=== PATIENT | male | born 1990 | race Caucasian/White ===

== ENCOUNTER 2020-08-29 10:26 | Emergency (ER) | payer OTHER ==
[~2020-08-29] VITALS: Ht 182.9 cm; Wt 108.9 kg
[~2020-08-29 10:26] MED LIST: IBUP800 PO
== END 2020-08-29 12:40 | disposition home or self-care (01) ==
LOC: ER 10:26
DX: R05 Cough (principal); R09.81 Nasal congestion; R53.83 Other fatigue; R19.7 Diarrhea, unspecified; F17.210 Nicotine dependence, cigarettes, uncomplicated; Z20.828 Contact with and (suspected) exposure to other viral communicable diseases
CPT/HCPCS: 99283; U0003

== ENCOUNTER 2020-11-15 21:33 | Emergency (ER) | payer SELFPAY ==
[~2020-11-15] VITALS: Ht 182.9 cm; Wt 72.6 kg
[2020-11-15 22:09] LABS: BASOPHILS PERCENT AUTO 2 % (0-2); EOSINOPHILS ABSOLUTE AUTO 0.28 K/mm3 (0.00-0.68); EOSINOPHILS PERCENT AUTO 4 % (0-6); Hematocrit 43.7 % (37.0-53.0); Hemoglobin 14.7 g/dL (13.5-17.5); IMMATURE GRAN ABSOLUTE AUTO 0.03 K/mm3 (0.00-0.10); IMMATURE GRAN PERCENT AUTO 1 % (0-1); LYMPHOCYTES ABSOLUTE AUTO 1.52 K/mm3 (0.84-5.20); LYMPHOCYTES PERCENT AUTO 23 % (21-46); MONOCYTES ABSOLUTE AUTO 0.57 K/mm3 (0.16-1.47); MONOCYTES PERCENT AUTO 9 % (4-13); Mean Corpuscular HGB 31.7 pg (26.0-34.0); Mean Corpuscular HGB Conc 33.6 g/dL (31.5-36.5); Mean Corpuscular Volume 94 fL (80-100); Mean Platelet Volume 10.4 fL (9.1-12.4); NEUTROPHILS ABSOLUTE AUTO 4.05 K/mm3 (1.96-9.15); NEUTROPHILS PERCENT AUTO 62 % (41-73); Platelet Count 195 K/mm3 (150-400); RDW Coefficient Variation 12.6 % (11.7-14.2); RDW Standard Deviation 43.8 fL (35.1-46.3); Red Blood Cell Count 4.64 M/mm3 (4.30-5.90); White Blood Cell Count 6.55 K/mm3 (4.00-11.30)
[2020-11-15 22:30] LABS: Alanine Aminotransfer (ALT/SGP 78 U/L (12-78); Albumin, Blood 3.5 g/dL (3.4-5.0); Albumin/Globulin Ratio 0.8 (0.8-1.8); Alk Phos 118 U/L (50-136); Anion Gap 4 mmol/L (6-16); Aspartate Aminotrans (AST/SGOT 73 U/L (12-37); Bilirubin, Total 0.5 mg/dL (0.1-1.0); Blood Urea Nitrogen 12 mg/dL (8-24); Bun/Creatinine Ratio 14.5 (12.0-20.0); CO2, Blood 30 mmol/L (21-32); Calcium, Blood 8.9 mg/dL (8.5-10.1); Chloride, Blood 105 mmol/L (98-108); Creatinine, Blood 0.83 mg/dL (0.60-1.20); Globulin, Blood 4.6 g/dL (2.2-4.0); Glomerular Filtration Rate >60 (60-); Glucose, Blood 108 mg/dL (70-99); Potassium, Blood 3.3 mmol/L (3.5-5.5); Sodium, Blood 139 mmol/L (136-145); Total Protein, Blood 8.1 g/dL (6.4-8.2); Troponin I <0.015 ng/mL (0.000-0.040)
== END 2020-11-16 00:09 | disposition home or self-care (01) ==
LOC: ER 21:33
PROVIDERS: Emergency Medicine
DX: R07.9 Chest pain, unspecified (principal); F17.210 Nicotine dependence, cigarettes, uncomplicated
CPT/HCPCS: 71046; 80053; 83690; 84484; 85025; 93005; 93010; 96374; 99285-25; G0480; J1885

== ENCOUNTER 2021-04-02 14:54 | Emergency (ER) | payer SELFPAY ==
[~2021-04-02] VITALS: Ht 175.3 cm; Wt 90.7 kg
[2021-04-02 15:40] LABS: BASOPHILS ABSOLUTE AUTO 0.09 K/mm3 (0.00-0.23); BASOPHILS PERCENT AUTO 2 % (0-2); EOSINOPHILS ABSOLUTE AUTO 0.09 K/mm3 (0.00-0.68); EOSINOPHILS PERCENT AUTO 2 % (0-6); Hematocrit 41.6 % (37.0-53.0); Hemoglobin 14.2 g/dL (13.5-17.5); IMMATURE GRAN ABSOLUTE AUTO 0.02 K/mm3 (0.00-0.10); IMMATURE GRAN PERCENT AUTO 0 % (0-1); LYMPHOCYTES ABSOLUTE AUTO 1.04 K/mm3 (0.84-5.20); LYMPHOCYTES PERCENT AUTO 17 % (21-46); MONOCYTES ABSOLUTE AUTO 0.43 K/mm3 (0.16-1.47); MONOCYTES PERCENT AUTO 7 % (4-13); Mean Corpuscular HGB 31.9 pg (26.0-34.0); Mean Corpuscular HGB Conc 34.1 g/dL (31.5-36.5); Mean Corpuscular Volume 94 fL (80-100); Mean Platelet Volume 10.7 fL (9.1-12.4); NEUTROPHILS ABSOLUTE AUTO 4.37 K/mm3 (1.96-9.15); NEUTROPHILS PERCENT AUTO 72 % (41-73); Platelet Count 120 K/mm3 (150-400); RDW Coefficient Variation 12.9 % (11.7-14.2); RDW Standard Deviation 44.3 fL (35.1-46.3); Red Blood Cell Count 4.45 M/mm3 (4.30-5.90); White Blood Cell Count 6.04 K/mm3 (4.00-11.30)
[2021-04-02 15:59] LABS: Alanine Aminotransfer (ALT/SGP 207 U/L (12-78); Albumin, Blood 3.8 g/dL (3.4-5.0); Alk Phos 91 U/L (50-136); Anion Gap 10 mmol/L (6-16); Aspartate Aminotrans (AST/SGOT 237 U/L (12-37); Bilirubin, Total 0.7 mg/dL (0.1-1.0); Blood Urea Nitrogen 13 mg/dL (8-24); Bun/Creatinine Ratio 16.1 (12.0-20.0); CO2, Blood 24 mmol/L (21-32); Calcium, Blood 8.2 mg/dL (8.5-10.1); Chloride, Blood 104 mmol/L (98-108); Creatinine, Blood 0.81 mg/dL (0.60-1.20); Globulin, Blood 3.9 g/dL (2.2-4.0); Glomerular Filtration Rate >60 (60-); Glucose, Blood 176 mg/dL (70-99); Potassium, Blood 3.3 mmol/L (3.5-5.5); Sodium, Blood 138 mmol/L (136-145); Total Protein, Blood 7.7 g/dL (6.4-8.2); Troponin I <0.015 ng/mL (0.000-0.040)
[2021-04-02] MEDS ORDERED: Toprol Xl25 MG PO (18:03)
[2021-04-02] MEDS ORDERED: ALBU90OI INH (18:03)
== END 2021-04-02 19:11 | disposition home or self-care (01) ==
LOC: ER 14:54
PROVIDERS: Physician Assistant
DX: J45.909 Unspecified asthma, uncomplicated (principal); R07.9 Chest pain, unspecified; F17.210 Nicotine dependence, cigarettes, uncomplicated
CPT/HCPCS: 36415; 71046; 80053; 84484; 85025; 93005; 93010; 99283-25; A9270; G0480

== ENCOUNTER 2021-11-13 10:34 | Inpatient (IN) | payer OTHER ==
[~2021-11-13] VITALS: Ht 185.4 cm; Wt 85.9 kg
[~2021-11-13 10:34] MED LIST changes: +ALBU90OI INH; +Toprol Xl25 MG PO
[2021-11-13 12:00] LABS: BASOPHILS ABSOLUTE AUTO 0.05 K/mm3 (0.00-0.23); BASOPHILS PERCENT AUTO 1 % (0-2); EOSINOPHILS ABSOLUTE AUTO 0.01 K/mm3 (0.00-0.68); EOSINOPHILS PERCENT AUTO 0 % (0-6); Hematocrit 40.6 % (37.0-53.0); Hemoglobin 14.8 g/dL (13.5-17.5); IMMATURE GRAN ABSOLUTE AUTO 0.15 K/mm3 (0.00-0.10); IMMATURE GRAN PERCENT AUTO 2 % (0-1); LYMPHOCYTES ABSOLUTE AUTO 0.39 K/mm3 (0.84-5.20); LYMPHOCYTES PERCENT AUTO 5 % (21-46); MONOCYTES PERCENT AUTO 8 % (4-13); Mean Corpuscular HGB 32.3 pg (26.0-34.0); Mean Corpuscular HGB Conc 36.5 g/dL (31.5-36.5); Mean Corpuscular Volume 89 fL (80-100); Mean Platelet Volume 10.7 fL (9.1-12.4); NEUTROPHILS ABSOLUTE AUTO 7.21 K/mm3 (1.96-9.15); NEUTROPHILS PERCENT AUTO 85 % (41-73); NRBC ABSOLUTE 0.02 K/mm3 (0.00-0.02); NRBC Auto 0.2 /100 WBC (0.0-0.2); Platelet Count 103 K/mm3 (150-400); RDW Coefficient Variation 11.9 % (11.7-14.2); RDW Standard Deviation 38.9 fL (35.1-46.3); Red Blood Cell Count 4.58 M/mm3 (4.30-5.90); White Blood Cell Count 8.51 K/mm3 (4.00-11.30)
[2021-11-13 12:16] LABS: Alanine Aminotransfer (ALT/SGP 90 U/L (12-78); Albumin, Blood 2.9 g/dL (3.4-5.0); Albumin/Globulin Ratio 0.6 (0.8-1.8); Alk Phos 216 U/L (50-136); Anion Gap 23 mmol/L (6-16); Aspartate Aminotrans (AST/SGOT 243 U/L (12-37); Blood Urea Nitrogen 12 mg/dL (8-24); Bun/Creatinine Ratio 27.3 (12.0-20.0); CO2, Blood 21 mmol/L (21-32); Calcium, Blood 8.5 mg/dL (8.5-10.1); Chloride, Blood 82 mmol/L (98-108); Creatinine, Blood 0.44 mg/dL (0.60-1.20); Ethanol (Alcohol), Blood, Med 258 mg/dL; Globulin, Blood 4.7 g/dL (2.2-4.0); Glomerular Filtration Rate >60 (60-); Glucose, Blood 112 mg/dL (70-99); Potassium, Blood 2.7 mmol/L (3.5-5.5); Sodium, Blood 126 mmol/L (136-145); Total Protein, Blood 7.6 g/dL (6.4-8.2); Troponin I <0.015 ng/mL (0.000-0.040)
[2021-11-13 13:12] LABS: Source, Urine Clean Catch
[2021-11-13 13:16] LABS: Appearance, Urine Cloudy (Clear); Blood, Urine 3+ (Neg); Color, Urine Amber (P-Yellow); Glucose Qualitative, Urine Neg (Neg); Ketones, Urine 4+ (Neg); Leukocyte Esterase, Urine 1+ (Neg); Nitrite, Urine Neg (Neg); Protein, Urine 3+ (Neg); Urobilinogen, Urine 3+ (Normal)
[2021-11-13 13:26] LABS: Bilirubin, Urine 2+ (Neg)
[2021-11-13 13:33] LABS: Bacteria Few /hpf; Red Blood Cells, Urine 0-2 /hpf (0-2); Squamous Epithelial Cells Mod /hpf (Few)
[2021-11-13 13:34] LABS: Other Crystals Few /hpf
--- NOTE | 2021-11-13 17:46 | NUR ---
SHIFT SUMMARY; ER ADMIT, TRANSFERS TO BED FROM [facility]. BANNANA BAG, NS AND K+ INFUSING ON ADMIT. A/A/OX4, SLIGHT TREMOR NOTED. MEDICATED PER CIWA ORDERS. REPORTS URQ PAIN AND NAUSEA. ASKING FOR WATER, REVIEWED REASON FOR NPO R/T PANCREATITIS. MEDICATED FOR PAIN PER EMAR. FALLS ASLEEP SHORTLY AFTER, WILL CONTINUE TO MONITOR AND TREAT UNTIL CHANGE OF SHIFT.
[2021-11-13 20:08] LABS: Troponin I <0.015 ng/mL (0.000-0.040)
--- NOTE | 2021-11-13 21:16 | NUR ---
ASSUMED CARE OF PATIENT AT APPROXIMATELY 1915 FROM JANET Swain RN. PATIENT RESPONDS TO VERBAL STIMULUS; DROWSY AT TIMES. PATIENT ABLE TO STATE DATE, OFF ON YEAR (2000); NAME, , AND LOCATION. CIWA 9. PATIENT REPORTS LOWER RQ PAIN; TENDER; GUARDED; MEDICATED PER EMAR; REPORTS DIALUDID DOENST LAST LONG BUT PATIENT APPEARS COMFORTABLE AND SLEEPS FOR ABOUT TWO HOURS AFTER. PATIENT NAUSEATED BUT NO ORDERS INTIALLY IN EMAR; CALLED DR. SONG; ORDERS FOR COMPAZINE 10MG IV Q6 NEEDED FOR NAUSEA. PATIENT DENIES NUMBNESS AND TINGLING AND DIZZINESS. IVF INFUSING PER ORDER.
--- NOTE | 2021-11-13 22:24 | NUR ---
HEART RATE AVERAGING 140'S; UP FROM 130'S EARLIER IN SHIFT; PATIENT REPORTS TAKING 12.5MG METOPROLOL FOR HEART RATE BUT RAN OUT A FEW MONTHS AGO AND COULD NOT GET ANOTHER PRESCRIPTION; WILL UPDATE HOSPITALIST.
[2021-11-13] MEDS ORDERED: METO25ER PO (22:26)
--- NOTE | 2021-11-13 22:34 | NUR ---
DR. SONG NOTIFIED AND ORDERS FOR IV LOPRESSOR FOR HEART RATE OVER 120 Q6 PRN; START HOME DOSE OF METOPROLOL IN AM; CLEAR LIQUID DIET IF PAIN CONTROLLED IT IS NOW AND NOT NAUSEATED.
[2021-11-14 05:31] LABS: Alanine Aminotransfer (ALT/SGP 71 U/L (12-78); Albumin, Blood 2.7 g/dL (3.4-5.0); Albumin/Globulin Ratio 0.8 (0.8-1.8); Alk Phos 184 U/L (50-136); Anion Gap 18 mmol/L (6-16); Aspartate Aminotrans (AST/SGOT 178 U/L (12-37); Bilirubin, Total 5.7 mg/dL (0.1-1.0); Blood Urea Nitrogen 11 mg/dL (8-24); Bun/Creatinine Ratio 22.6 (12.0-20.0); CO2, Blood 23 mmol/L (21-32); Calcium, Blood 8.1 mg/dL (8.5-10.1); Chloride, Blood 86 mmol/L (98-108); Creatinine, Blood 0.49 mg/dL (0.60-1.20); Globulin, Blood 3.6 g/dL (2.2-4.0); Glomerular Filtration Rate >60 (60-); Glucose, Blood 103 mg/dL (70-99); Magnesium, Blood 1.9 mg/dL (1.6-2.4); Potassium, Blood 2.8 mmol/L (3.5-5.5); Sodium, Blood 127 mmol/L (136-145); Total Protein, Blood 6.3 g/dL (6.4-8.2)
--- NOTE | 2021-11-14 06:54 | NUR ---
CALLED DR. WELLS ABOUT POTASSIUM OF 2.8 AND SODIUM OF 127; ORDERS FOR IV POTASSIUM 40 MEQ AND BANANA BAG AT 75. NO OTHER ACUTE CHANGES TO REPORT.
--- NOTE | 2021-11-14 07:59 | NUR ---
CIWA score this morning is 5. Pt is drowsy, when awake he c/o pain 8/10 in the right upper quadrand of his abdomen. Given half dose of pain medication for relief. Noted sinus tachycardia by telemetry monitoring, and blood pressure 138/100. Metoprolol scheduled for 0900 was given early, as it is the first dose.
--- NOTE | 2021-11-14 11:25 | NUR ---
pt appears to be sleeping comfortably.
--- NOTE | 2021-11-14 12:09 | NUR ---
medicated with Librium 25 mg for CIWA 4-5. C/O ongoing pain in his abdomen, drowsy, but awakens easily. NPO except for sips of water to swallow medications.
[2021-11-14 14:18] LABS: BASOPHILS ABSOLUTE AUTO 0.03 K/mm3 (0.00-0.23); BASOPHILS PERCENT AUTO 1 % (0-2); EOSINOPHILS ABSOLUTE AUTO 0.01 K/mm3 (0.00-0.68); EOSINOPHILS PERCENT AUTO 0 % (0-6); Hematocrit 36.8 % (37.0-53.0); Hemoglobin 13.1 g/dL (13.5-17.5); IMMATURE GRAN ABSOLUTE AUTO 0.06 K/mm3 (0.00-0.10); IMMATURE GRAN PERCENT AUTO 1 % (0-1); LYMPHOCYTES ABSOLUTE AUTO 0.51 K/mm3 (0.84-5.20); LYMPHOCYTES PERCENT AUTO 8 % (21-46); MONOCYTES ABSOLUTE AUTO 0.41 K/mm3 (0.16-1.47); MONOCYTES PERCENT AUTO 7 % (4-13); Mean Corpuscular HGB 32.4 pg (26.0-34.0); Mean Corpuscular HGB Conc 35.6 g/dL (31.5-36.5); Mean Corpuscular Volume 91 fL (80-100); NEUTROPHILS ABSOLUTE AUTO 5.12 K/mm3 (1.96-9.15); NEUTROPHILS PERCENT AUTO 83 % (41-73); Platelet Count 74 K/mm3 (150-400); RDW Coefficient Variation 12.2 % (11.7-14.2); RDW Standard Deviation 41.1 fL (35.1-46.3); Red Blood Cell Count 4.04 M/mm3 (4.30-5.90); White Blood Cell Count 6.14 K/mm3 (4.00-11.30)
[2021-11-14 14:30] LABS: Albumin, Blood 2.4 g/dL (3.4-5.0); Anion Gap 12 mmol/L (6-16); Blood Urea Nitrogen 9 mg/dL (8-24); Bun/Creatinine Ratio 21.3 (12.0-20.0); CO2, Blood 28 mmol/L (21-32); Calcium, Blood 8.6 mg/dL (8.5-10.1); Chloride, Blood 86 mmol/L (98-108); Creatinine, Blood 0.42 mg/dL (0.60-1.20); Glomerular Filtration Rate >60 (60-); Glucose, Blood 146 mg/dL (70-99); Phosphorus, Blood 1.3 mg/dL (2.5-4.9); Potassium, Blood 3.1 mmol/L (3.5-5.5); Sodium, Blood 126 mmol/L (136-145)
--- NOTE | 2021-11-14 14:34 | NUR ---
Call to Dr. Gauthier to report the lab values which were just seen on recent lab draw.
--- NOTE | 2021-11-14 15:07 | NUR ---
Heart rate noted to be 139, and holding, sinus tachycardia. Pt is awake, nauseated, dry heaved. States headache worsening also. No diaphoresis, no anxiety, no hallucinations (save some strange dreams, he reports), no confusion, no tremors. CIWA IS 9. Given metoprolol IV prn for tachycardia, and librium 50 mg for withdrawl symptoms. He is now lying in bed, eyes closed, appears to be resting comfortably.
--- NOTE | 2021-11-14 16:11 | NUR ---
Pt states that after taking the librium his headache is completely gone, as well as his nausea. States that his abdominal pain has returned. Given pain medication for relief. He said that after taking a swig of water (with meds) his abdominal pain was better for about an hour. He is asking for water. Given 30 cc water. He then is asking for yogurt which of course was denied.
--- NOTE | 2021-11-14 18:11 | NUR ---
Pt's significant other Minerva was here visiting the patient. We discussed the pt's ongoing illness and the plan of care.
[2021-11-15 04:06] LABS: Hematocrit 37.7 % (37.0-53.0); Hemoglobin 13.1 g/dL (13.5-17.5); Mean Corpuscular HGB 31.7 pg (26.0-34.0); Mean Corpuscular HGB Conc 34.7 g/dL (31.5-36.5); Mean Corpuscular Volume 91 fL (80-100); Mean Platelet Volume 11.7 fL (9.1-12.4); Platelet Count 82 K/mm3 (150-400); RDW Coefficient Variation 12.2 % (11.7-14.2); Red Blood Cell Count 4.13 M/mm3 (4.30-5.90); White Blood Cell Count 5.13 K/mm3 (4.00-11.30)
[2021-11-15 04:44] LABS: Alanine Aminotransfer (ALT/SGP 56 U/L (12-78); Albumin, Blood 2.4 g/dL (3.4-5.0); Albumin/Globulin Ratio 0.7 (0.8-1.8); Alk Phos 168 U/L (50-136); Anion Gap 12 mmol/L (6-16); Aspartate Aminotrans (AST/SGOT 138 U/L (12-37); Bilirubin, Direct 6.2 mg/dL (0.0-0.3); Bilirubin, Indirect 0.9 mg/dL (0.1-0.7); Bilirubin, Total 7.1 mg/dL (0.1-1.0); Blood Urea Nitrogen 7 mg/dL (8-24); Bun/Creatinine Ratio 13.6 (12.0-20.0); CO2, Blood 30 mmol/L (21-32); Calcium, Blood 8.4 mg/dL (8.5-10.1); Chloride, Blood 85 mmol/L (98-108); Creatinine, Blood 0.52 mg/dL (0.60-1.20); Globulin, Blood 3.5 g/dL (2.2-4.0); Glomerular Filtration Rate >60 (60-); Glucose, Blood 120 mg/dL (70-99); Magnesium, Blood 1.8 mg/dL (1.6-2.4); Phosphorus, Blood 1.3 mg/dL (2.5-4.9); Potassium, Blood 3.2 mmol/L (3.5-5.5); Sodium, Blood 127 mmol/L (136-145); Total Protein, Blood 5.9 g/dL (6.4-8.2)
[2021-11-15 04:45] LABS: BAND PERCENT MAN 24 % (0-8); BASOPHILS PERCENT MAN 0 % (0-2); EOSINOPHILS ABSOLUTE MAN 0.05 K/mm3 (0.00-0.68); EOSINOPHILS PERCENT MAN 1 % (0-6); LYMPHOCYTES ABSOLUTE MAN 0.41 K/mm3 (0.84-5.20); LYMPHOCYTES PERCENT MAN 8 % (21-46); MONOCYTES PERCENT MAN 4 % (4-13); NEUTROPHILS ABSOLUTE MAN 4.46 K/mm3 (1.96-9.15); SEG NEUTROPHILS PERCENT MAN 63 % (41-73); TOTAL CELLS COUNTED 100
[2021-11-15 15:57] LABS: BASOPHILS ABSOLUTE AUTO 0.04 K/mm3 (0.00-0.23); BASOPHILS PERCENT AUTO 1 % (0-2); EOSINOPHILS ABSOLUTE AUTO 0.02 K/mm3 (0.00-0.68); EOSINOPHILS PERCENT AUTO 0 % (0-6); Hematocrit 35.4 % (37.0-53.0); Hemoglobin 12.3 g/dL (13.5-17.5); IMMATURE GRAN ABSOLUTE AUTO 0.07 K/mm3 (0.00-0.10); IMMATURE GRAN PERCENT AUTO 1 % (0-1); LYMPHOCYTES ABSOLUTE AUTO 0.63 K/mm3 (0.84-5.20); LYMPHOCYTES PERCENT AUTO 10 % (21-46); MONOCYTES ABSOLUTE AUTO 0.61 K/mm3 (0.16-1.47); MONOCYTES PERCENT AUTO 10 % (4-13); Mean Corpuscular HGB 31.7 pg (26.0-34.0); Mean Corpuscular HGB Conc 34.7 g/dL (31.5-36.5); Mean Corpuscular Volume 91 fL (80-100); Mean Platelet Volume 11.3 fL (9.1-12.4); NEUTROPHILS ABSOLUTE AUTO 4.71 K/mm3 (1.96-9.15); NEUTROPHILS PERCENT AUTO 77 % (41-73); Platelet Count 86 K/mm3 (150-400); RDW Coefficient Variation 12.2 % (11.7-14.2); Red Blood Cell Count 3.88 M/mm3 (4.30-5.90); White Blood Cell Count 6.08 K/mm3 (4.00-11.30)
--- NOTE | 2021-11-15 18:07 | NUR ---
SHIFT SUMMARY PT HAS BEEN SLEEPING OFF AND ON. PT HAS C/O RUQ PAIN CONSISTENTLY THROUGHOUT THE DAY, TREATED WITH POSITIONING, DISTRACTION, AND EMAR. CIWA SCORES HAVE BEEN CONSISTENTLY <5. PT HAS BEEN A&O X4, PLEASANT AND COOPERATIVE WITH CARE. VSS, NO ACUTE CHANGES TO CURRENT CONDITION.
[2021-11-16 04:29] LABS: Hematocrit 33.6 % (37.0-53.0); Hemoglobin 11.9 g/dL (13.5-17.5); Mean Corpuscular HGB 32.2 pg (26.0-34.0); Mean Corpuscular HGB Conc 35.4 g/dL (31.5-36.5); Mean Corpuscular Volume 91 fL (80-100); Platelet Count 98 K/mm3 (150-400); RDW Coefficient Variation 12.1 % (11.7-14.2); RDW Standard Deviation 40.4 fL (35.1-46.3); White Blood Cell Count 5.61 K/mm3 (4.00-11.30)
[2021-11-16 04:48] LABS: Alanine Aminotransfer (ALT/SGP 45 U/L (12-78); Albumin/Globulin Ratio 0.5 (0.8-1.8); Alk Phos 150 U/L (50-136); Anion Gap 10 mmol/L (6-16); Aspartate Aminotrans (AST/SGOT 124 U/L (12-37); Blood Urea Nitrogen 6 mg/dL (8-24); Bun/Creatinine Ratio 12.2 (12.0-20.0); CO2, Blood 31 mmol/L (21-32); Calcium, Blood 8.4 mg/dL (8.5-10.1); Chloride, Blood 86 mmol/L (98-108); Creatinine, Blood 0.49 mg/dL (0.60-1.20); Globulin, Blood 4.2 g/dL (2.2-4.0); Glomerular Filtration Rate >60 (60-); Glucose, Blood 106 mg/dL (70-99); Phosphorus, Blood 1.3 mg/dL (2.5-4.9); Potassium, Blood 2.7 mmol/L (3.5-5.5); Sodium, Blood 127 mmol/L (136-145); Total Protein, Blood 6.2 g/dL (6.4-8.2)
[2021-11-16 05:15] LABS: BAND PERCENT MAN 13 % (0-8); BASOPHILS ABSOLUTE MAN 0.05 K/mm3 (0.00-0.23); BASOPHILS PERCENT MAN 1 % (0-2); EOSINOPHILS PERCENT MAN 0 % (0-6); LYMPHOCYTES ABSOLUTE MAN 0.67 K/mm3 (0.84-5.20); LYMPHOCYTES PERCENT MAN 12 % (21-46); MONOCYTES ABSOLUTE MAN 0.78 K/mm3 (0.16-1.47); MONOCYTES PERCENT MAN 14 % (4-13); NEUTROPHILS ABSOLUTE MAN 4.09 K/mm3 (1.96-9.15); SEG NEUTROPHILS PERCENT MAN 60 % (41-73); TOTAL CELLS COUNTED 100
--- NOTE | 2021-11-16 06:53 | NUR ---
SHIFT SUMMARY PT ALERT AND ORIENTED. CONFUSED AT TIMES. STATES HIS BEDROOM LOOKS THE SAME AT HOME AND ASKED WHAT MEDICINE WAS INFUSING FROM THAT BAG, WHILE POINTING AT A MASK HANGING ON IV POLE. PULLED OUT WRIST IV. ST 100-120'S. ON RA MAINTAINING SATS OVER 94%. LUNG SOUNDS CLEAR. VOIDING WITH BEDSIDE URINAL. PT REMAINS NPO D/T PANCREATITIS. 05/31 ABDOMINAL PAIN MEDICATED PER EMAR. PROVIDER NOTIFED OF 2.7 POTASSIUM FROM AM LABS. NEW ORDERS IN EMAR. IN BED SLEEPING WITH CALL ALARM AT SIDE
[2021-11-16 14:17] LABS: Albumin, Blood 2.3 g/dL (3.4-5.0); Anion Gap 11 mmol/L (6-16); Blood Urea Nitrogen 7 mg/dL (8-24); CO2, Blood 30 mmol/L (21-32); Calcium, Blood 8.2 mg/dL (8.5-10.1); Chloride, Blood 87 mmol/L (98-108); Glomerular Filtration Rate >60 (60-); Glucose, Blood 105 mg/dL (70-99); Phosphorus, Blood 2.1 mg/dL (2.5-4.9); Potassium, Blood 3.5 mmol/L (3.5-5.5); Sodium, Blood 128 mmol/L (136-145)
--- NOTE | 2021-11-16 17:58 | NUR ---
SHIFT SUMMARY PT WAS MODERATELY AGITATED AND ANXIOUS DURING THE FIRST HALF OF THE DAY. PT IS A&O X3 AND IS REORIENTABLE. PT PULLED IV DURING AN EPISODE OF GREATER ANXIETY AND AGITATION, A POWERGLIDE IV WAS PLACED WHICH WAS ALSO PULLED DURING AN EPISODE OF ANXIETY AND AGITATION. ANOTHER PERIPHERAL IV WAS PLACED AND PT WAS EDUCATED ON THE NEXT STEPS IF CARE IS TO BE CONTINUED. PT STATED AN UNDERSTANDING AND THAT THEY STILL WISH TO BE TREATED. ALL VSS.
[2021-11-17 03:59] LABS: BASOPHILS ABSOLUTE AUTO 0.05 K/mm3 (0.00-0.23); BASOPHILS PERCENT AUTO 1 % (0-2); EOSINOPHILS ABSOLUTE AUTO 0.09 K/mm3 (0.00-0.68); EOSINOPHILS PERCENT AUTO 2 % (0-6); Hematocrit 32.2 % (37.0-53.0); Hemoglobin 11.4 g/dL (13.5-17.5); IMMATURE GRAN ABSOLUTE AUTO 0.15 K/mm3 (0.00-0.10); IMMATURE GRAN PERCENT AUTO 3 % (0-1); LYMPHOCYTES ABSOLUTE AUTO 0.73 K/mm3 (0.84-5.20); LYMPHOCYTES PERCENT AUTO 13 % (21-46); MONOCYTES ABSOLUTE AUTO 1.07 K/mm3 (0.16-1.47); MONOCYTES PERCENT AUTO 20 % (4-13); Mean Corpuscular HGB 32.6 pg (26.0-34.0); Mean Corpuscular HGB Conc 35.4 g/dL (31.5-36.5); Mean Corpuscular Volume 92 fL (80-100); Mean Platelet Volume 10.1 fL (9.1-12.4); NEUTROPHILS ABSOLUTE AUTO 3.38 K/mm3 (1.96-9.15); NEUTROPHILS PERCENT AUTO 62 % (41-73); NRBC ABSOLUTE 0.02 K/mm3 (0.00-0.02); NRBC Auto 0.4 /100 WBC (0.0-0.2); Platelet Count 151 K/mm3 (150-400); RDW Coefficient Variation 12.6 % (11.7-14.2); RDW Standard Deviation 42.4 fL (35.1-46.3); White Blood Cell Count 5.47 K/mm3 (4.00-11.30)
[2021-11-17 04:20] LABS: Alanine Aminotransfer (ALT/SGP 48 U/L (12-78); Albumin/Globulin Ratio 0.5 (0.8-1.8); Alk Phos 174 U/L (50-136); Anion Gap 9 mmol/L (6-16); Aspartate Aminotrans (AST/SGOT 142 U/L (12-37); Blood Urea Nitrogen 7 mg/dL (8-24); CO2, Blood 30 mmol/L (21-32); Calcium, Blood 8.5 mg/dL (8.5-10.1); Chloride, Blood 91 mmol/L (98-108); Creatinine, Blood 0.54 mg/dL (0.60-1.20); Globulin, Blood 4.1 g/dL (2.2-4.0); Glomerular Filtration Rate >60 (60-); Glucose, Blood 100 mg/dL (70-99); Potassium, Blood 3.2 mmol/L (3.5-5.5); Sodium, Blood 130 mmol/L (136-145); Total Protein, Blood 6.1 g/dL (6.4-8.2)
--- NOTE | 2021-11-17 06:49 | NUR ---
SHIFT SUMMARY CIWA SCORES OF 9 AND 9 THIS EVENING. PT LETHARGIC THROUGHOUT MOST OF NIGHT. WHEN AWAKE PT UNABLE TO TELL THE DATE OR TIME. C/O 7-910 ABDOMINAL PAIN, MEDICATED PER EMAR. WITHDRAWAL AFFECTS MEDICATED PER EMAR. NS INFUSING IN RIGHT FOREARM AT 100ML/HR. PT ON CLEAR LIQUID DIET. PT SHAKY ON FEET AND IMPULSIVE AT TIMES. KEEPS ASKING IF HE CAN GO OUTSIDE AND SMOKE. PT AWAKE IN BED WITH CALL ALARM AT SIDE. WILL CONTINUE TO MONITOR UNTIL REPORT GIVEN TO DAYSHIFT RN
--- NOTE | 2021-11-17 18:50 | NUR ---
SHIFT SUMMARY: PT LETHARGIC, ORIENTED TO SELF, LOCATION, SITUATION. PT ATTEMPTS TO EXIT BED OFTEN, BED ALARM AND MONITORING IN PLACE, REQUIRES REDIRECTION OFTEN. PT MAINTAINS O2 SATS >92% ON RA. SR/ST ON MONITOR. LIQUID DIET CONTINUES WITH MINIMAL INTAKE. PT OFTEN ASKING TO GO SMOKE, EDUCATED ABOUT HOSPITAL POLICY, ORDER OBTAINED AND PT TREATED WITH NICOTINE PATCH. PT ALSO MEDICATED PER CIWA ORDERS AND W/PRN PAIN MEDS FOR ABD PAIN. PT ASSISTED TO STANDING AT BEDSIDE FOR URINAL USE, CONTINUES TO BE SHAKY AND WEAK, BUT IS COOPERATIVE WITH CARE. WILL CONTINUE TO MONITOR AND TREAT ACCORDINGLY UNTIL CHANGE OF SHIFT.
[2021-11-18 03:53] LABS: Hematocrit 32.4 % (37.0-53.0); Hemoglobin 11.4 g/dL (13.5-17.5); Mean Corpuscular HGB 32.7 pg (26.0-34.0); Mean Corpuscular HGB Conc 35.2 g/dL (31.5-36.5); Mean Corpuscular Volume 93 fL (80-100); NRBC ABSOLUTE 0.02 K/mm3 (0.00-0.02); NRBC Auto 0.5 /100 WBC (0.0-0.2); Platelet Count 169 K/mm3 (150-400); RDW Standard Deviation 43.7 fL (35.1-46.3); Red Blood Cell Count 3.49 M/mm3 (4.30-5.90); White Blood Cell Count 4.41 K/mm3 (4.00-11.30)
[2021-11-18 04:08] LABS: Anion Gap 8 mmol/L (6-16); Blood Urea Nitrogen 5 mg/dL (8-24); Bun/Creatinine Ratio 10.8 (12.0-20.0); CO2, Blood 28 mmol/L (21-32); Calcium, Blood 8.8 mg/dL (8.5-10.1); Chloride, Blood 98 mmol/L (98-108); Creatinine, Blood 0.46 mg/dL (0.60-1.20); Glomerular Filtration Rate >60 (60-); Glucose, Blood 102 mg/dL (70-99); Phosphorus, Blood 1.5 mg/dL (2.5-4.9); Potassium, Blood 3.1 mmol/L (3.5-5.5); Sodium, Blood 134 mmol/L (136-145)
[2021-11-18 04:21] LABS: BAND PERCENT MAN 10 % (0-8); BASOPHILS ABSOLUTE MAN 0.08 K/mm3 (0.00-0.23); BASOPHILS PERCENT MAN 2 % (0-2); EOSINOPHILS PERCENT MAN 0 % (0-6); LYMPHOCYTES ABSOLUTE MAN 0.61 K/mm3 (0.84-5.20); LYMPHOCYTES PERCENT MAN 14 % (21-46); METAMYELOCYTE ABSOLUTE MAN 0.04 K/mm3 (0.00-0.00); METAMYELOCYTE PERCENT MAN 1 % (0-0); MONOCYTES ABSOLUTE MAN 1.14 K/mm3 (0.16-1.47); MONOCYTES PERCENT MAN 26 % (4-13); NEUTROPHILS ABSOLUTE MAN 2.51 K/mm3 (1.96-9.15); SEG NEUTROPHILS PERCENT MAN 47 % (41-73); TOTAL CELLS COUNTED 100
--- NOTE | 2021-11-18 06:12 | NUR ---
SHIFT SUMMARY ASSUMED CARE OF PT AT 1900. PT IS A/OXX2. PT CIWAH RANGED FROM 12-21 DURING THE NIGHT. PT WAS GETTING MORE AND MORE AGITATED AND STARTED TO HAVE HALLUCINATIONS T/O THE NIGHT. PT WAS MEDICATION ALMOST EVERY 2 HOURS WITH ATIVAN AND LIBRIUM PER CIWAH. PT WAS ABLE TO GET SOME SLEEP DURING THE NIGHT BUT WAS VERY UNSTEADY ON HIS FEET AND NEEDED TWO PERSON ASSISTANCE WITH THE URINAL. URINE WAS VERY DARK AND LINDSEY COLORED. PT SKIN IS JAUNDICED. PT WILL ASK FOR PAIN MEDICATIONS WITH HIS EYES CLOSED AND SLURRED SPEECH. CALL LIGHT IN REACH, BED IN LOWEST POSITION, BED ALARM ON, VIDEO CAMERA MONITORING.
[2021-11-18 14:49] LABS: Source, Urine Catheter
[2021-11-18 15:01] LABS: Appearance, Urine Clear (Clear); Blood, Urine Neg (Neg); Color, Urine Amber (P-Yellow); Glucose Qualitative, Urine Neg (Neg); Ketones, Urine Neg (Neg); Leukocyte Esterase, Urine Neg (Neg); Nitrite, Urine Neg (Neg); Protein, Urine Neg (Neg); Urobilinogen, Urine 2+ (Normal)
[2021-11-18 15:08] LABS: Bilirubin, Urine 1+ (Neg)
--- NOTE | 2021-11-18 18:25 | NUR ---
SHIFT SUMMARY: CIWAS 18-22 TODAY. MEDICATED PER EMAR. INCREASED AGITATION AND ATTEMPTS TO LEAVE BED. GARNER CATHETER INSERTED AND PATIENT HAS ATTEMPTED TO PULL IT OUT. SOFT WRIST CUFFS WERE APPLIED. MANNY HARRINGTON CALLED FOR UPDATE THIS AFTERNOON. PATIENT'S HALLUCINATIONS INCLUDE JUANY BEING IN THE ROOM WITH HIM. MOTTLING OF SKIN DEVELOPED THIS SHIFT WITH PERIPHERAL COOLNESS, ESPECIALLY ON RIGHT SIDE, THOUGH DISTAL PULSES REMAIN STRONG. LEFT PUPIL SLUGGISH TO LIGHT. INCREASED JAUNDICE OF SKIN AND SCLERAS. WILL REPORT TO NOC RN.
[2021-11-19 03:33] LABS: Hematocrit 35.6 % (37.0-53.0); Hemoglobin 12.1 g/dL (13.5-17.5); Mean Corpuscular Volume 94 fL (80-100); NRBC ABSOLUTE 0.02 K/mm3 (0.00-0.02); NRBC Auto 0.3 /100 WBC (0.0-0.2); Platelet Count 227 K/mm3 (150-400); RDW Coefficient Variation 13.8 % (11.7-14.2); RDW Standard Deviation 46.5 fL (35.1-46.3); Red Blood Cell Count 3.78 M/mm3 (4.30-5.90); White Blood Cell Count 6.03 K/mm3 (4.00-11.30)
[2021-11-19 03:48] LABS: Albumin, Blood 2.1 g/dL (3.4-5.0); Anion Gap 8 mmol/L (6-16); Blood Urea Nitrogen 4 mg/dL (8-24); Bun/Creatinine Ratio 8.4 (12.0-20.0); CO2, Blood 24 mmol/L (21-32); Calcium, Blood 8.9 mg/dL (8.5-10.1); Chloride, Blood 105 mmol/L (98-108); Creatinine, Blood 0.48 mg/dL (0.60-1.20); Glomerular Filtration Rate >60 (60-); Glucose, Blood 123 mg/dL (70-99); Phosphorus, Blood 1.6 mg/dL (2.5-4.9); Potassium, Blood 3.3 mmol/L (3.5-5.5); Sodium, Blood 137 mmol/L (136-145)
[2021-11-19 03:55] LABS: BAND PERCENT MAN 7 % (0-8); BASOPHILS ABSOLUTE MAN 0.18 K/mm3 (0.00-0.23); BASOPHILS PERCENT MAN 3 % (0-2); EOSINOPHILS ABSOLUTE MAN 0.12 K/mm3 (0.00-0.68); EOSINOPHILS PERCENT MAN 2 % (0-6); LYMPHOCYTES ABSOLUTE MAN 0.72 K/mm3 (0.84-5.20); LYMPHOCYTES PERCENT MAN 12 % (21-46); METAMYELOCYTE ABSOLUTE MAN 0.12 K/mm3 (0.00-0.00); METAMYELOCYTE PERCENT MAN 2 % (0-0); MONOCYTES ABSOLUTE MAN 1.32 K/mm3 (0.16-1.47); MONOCYTES PERCENT MAN 22 % (4-13); MYELOCYTE ABSOLUTE MAN 0.06 K/mm3 (0.00-0.00); MYELOCYTE PERCENT MAN 1 % (0-0); NEUTROPHILS ABSOLUTE MAN 3.49 K/mm3 (1.96-9.15); SEG NEUTROPHILS PERCENT MAN 51 % (41-73); TOTAL CELLS COUNTED 100
--- NOTE | 2021-11-19 06:37 | NUR ---
SHIFT SUMMARY PATIENT IS CONFUSED AND ONLY ORIENTED TO SELF. GARBLED SPEECH. CIWA FROM 18-22 AND MEDICATED PER EMAR. SEIZURE AND FALL PRECAUTIONS IN PLACE. NOT FOLLOWING COMMANDS AND ATTEMPTING TO PULL LINES AND GET UP FREQUENTLY. KATHRINE VEST AND BILAT WRIST IN PLACE. LOW GRADE TEMP OF 100.3. VSS. ON RA. SR ON THE MONITOR. GARNER CATH PATENT AND DRAINING TO GRAVITY WITH GOOD OUPUT. Q2H TURNS. FULL LIQUID DIET BUT NOT ALERT OR FOLLOWING COMMANDS ENOUGH TO DRINK MUCH AND BEGAN COUGING AFTER LAST LIBRIUM GIVEN. NAUSEAOUS AT TIMES AND MEDICATED PER EMAR. IV FLUIDS AND BANANA BAG RUNNING PER ORDER. WILL CONTINUE PLAN OF CARE UNTIL REPORT GIVEN TO DAYSHIRAMOS RICKETTS.
--- NOTE | 2021-11-19 18:18 | NUR ---
SHIFT SUMMARY: PATIENT MAXED 24 HR ATIVAN DOSE THIS AM. RESTED MOST OF THE SHIFT AND WAS ABLE TO ANSWER QUESTIONS WITH GARBLED SPEECH THIS AFTERNOON. GAVE 2 MG ATIVAN THIS AFTERNOON AND PARKING ENFORCEMENT TECHNICIAN ADVISED GIVING 2 MG Q6. PERIPHERAL IV OCCLUDED AND POWERGLIDE WAS INSERTED IN LEFT UPPER ARM. CIWAS HAVE RANGED 13-21. CHEST X-RAY WAS CLEAR, NPO ORDER IN PLACE DUE TO ASPIRATION RISK. SISTER NETTIE CAME TO VISIT TODAY AND STATED LENGTHY FAMILY HX OF ETOH AND SUBSTANCE ABUSE. AFTER SHE LEFT THIS RN RECEIVED CALLS FROM FAMILY MEMBERS THAT SISTER WAS "SPREADING NEWS THAT HE'D HAD A STROKE, IS DYING, AND NEEDS AN IMMEDIATE LIVER TRANSPLANT." THIS RN ASSURED MANNY HARRINGTON PATIENT HAD NOT HAD A STROKE NOR HAD HIS CONDITION WORSENED SINCE WE HAD LAST SPOKEN. MANNY STATED PATIENT'S MOTHER IS IN THE HOSPITAL FROM A POSSIBLE STROKE. THERE IS ANIMOSITY BETWEEN MANNY AND SISTER. NO ADVERSE EVENTS THIS SHIFT. WILL REPORT TO NOC RN.
[2021-11-20 03:55] LABS: Hematocrit 35.8 % (37.0-53.0); Hemoglobin 12.5 g/dL (13.5-17.5); Mean Corpuscular HGB 32.6 pg (26.0-34.0); Mean Corpuscular HGB Conc 34.9 g/dL (31.5-36.5); Mean Corpuscular Volume 93 fL (80-100); Mean Platelet Volume 10.3 fL (9.1-12.4); Platelet Count 257 K/mm3 (150-400); RDW Coefficient Variation 14.4 % (11.7-14.2); Red Blood Cell Count 3.84 M/mm3 (4.30-5.90); White Blood Cell Count 7.67 K/mm3 (4.00-11.30)
[2021-11-20 04:38] LABS: Albumin, Blood 2.1 g/dL (3.4-5.0); Anion Gap 9 mmol/L (6-16); Blood Urea Nitrogen 5 mg/dL (8-24); Bun/Creatinine Ratio 9.4 (12.0-20.0); CO2, Blood 23 mmol/L (21-32); Calcium, Blood 8.6 mg/dL (8.5-10.1); Chloride, Blood 105 mmol/L (98-108); Creatinine, Blood 0.53 mg/dL (0.60-1.20); Glomerular Filtration Rate >60 (60-); Glucose, Blood 101 mg/dL (70-99); Phosphorus, Blood 3.5 mg/dL (2.5-4.9); Potassium, Blood 4.1 mmol/L (3.5-5.5); Sodium, Blood 137 mmol/L (136-145)
[2021-11-20 04:39] LABS: BAND PERCENT MAN 17 % (0-8); BASOPHILS ABSOLUTE MAN 0.23 K/mm3 (0.00-0.23); BASOPHILS PERCENT MAN 3 % (0-2); EOSINOPHILS PERCENT MAN 0 % (0-6); LYMPHOCYTES ABSOLUTE MAN 0.76 K/mm3 (0.84-5.20); LYMPHOCYTES PERCENT MAN 10 % (21-46); METAMYELOCYTE ABSOLUTE MAN 0.07 K/mm3 (0.00-0.00); METAMYELOCYTE PERCENT MAN 1 % (0-0); MONOCYTES ABSOLUTE MAN 1.22 K/mm3 (0.16-1.47); MONOCYTES PERCENT MAN 16 % (4-13); MYELOCYTE ABSOLUTE MAN 0.15 K/mm3 (0.00-0.00); MYELOCYTE PERCENT MAN 2 % (0-0); NEUTROPHILS ABSOLUTE MAN 5.21 K/mm3 (1.96-9.15); SEG NEUTROPHILS PERCENT MAN 51 % (41-73); TOTAL CELLS COUNTED 100
--- NOTE | 2021-11-20 05:28 | NUR ---
SHIFT SUMMARY PT LETHARGIC THIS SHIFT D/T SEDATION. CIWA SCORE OF 18. MEDICATED PER EMAR. WHEN AWAKE MUMBLES INCOHERENTLY. UNABLE TO UNDERSTAND HIS COMMUNICATION AT THIS TIME. HR SR 90'S. ON RA SATS OVER 93%. BP STABLE. NS INFUSING AT 100ML/HR IN POWERGLIDE. PG DRAWS BLOOD. PT IN KATHRINE VEST AND SOFT BILATERAL WRIST RESTRAINTS. PT REMAINS NPO D/T ASPIRATION. CONTINUES TO ATTEMPT TO PULL AT IV LINES AND GARNER. ATTEMPTS TO SWING LEGS OUT OF BED. SKIN APPEARS PALE AND JAUNDICED. IN BED IN THE LOW POSITION WITH CALL ALARM AT SIDE. WILL CONTINUE TO MONITOR UNTIL REPORT GIVEN.
--- NOTE | 2021-11-20 16:51 | NUR ---
SHIFT SUMMARY PT ALER TO SELF, LOCATION, YEAR. CONFUSED AT TIMES. ATTEMPTING TO CLIMB OUT OF BED TO "GET PANTS FROM DOWNSTAIRS." SEE CIWA SCORES. PT AGGITATED THIS EVENING SAYING HE NEEDS TO LEAVE. CIWA SCORE REMAINS 7 AT THIS TIME. BED ALARM IN PLACE. PT AWARE OF LOCATION YEAR, SITUATION. FIANCE AT BEDSIDE THIS AFTERNOON. UPDATED ON PT. PHYSICIAN AWARE PT HAS RASH/LESIONS ON GROIN. PT AT BEDSIDE TO ASSESS. NO NEW ORDERS. PT HAS GARNER CATH PATENT AND DRAINING. ATTEMPTING TO REMOVE SOFT BILATERAL WRIST RESTRAINTS AT THIS TIME AND LEAVE GARNER IN PLACE. PT IS DIRECTABLE AT THIS TIME. PT ON CAMERA. OXYGEN SATURATION MAINTAINED ABOVE 96% ON RA. HR STABLE. BP STABLE. NO CP OR PRESSURE. KATHRINE VEST AND BED ALARM ON. WILL CONT TO MONITOR UNTIL REPORT GIVEN TO NIGHTSHIFT RN.
[2021-11-21 04:31] LABS: BASOPHILS PERCENT AUTO 1 % (0-2); EOSINOPHILS ABSOLUTE AUTO 0.12 K/mm3 (0.00-0.68); EOSINOPHILS PERCENT AUTO 2 % (0-6); Hematocrit 33.4 % (37.0-53.0); Hemoglobin 11.2 g/dL (13.5-17.5); IMMATURE GRAN ABSOLUTE AUTO 0.24 K/mm3 (0.00-0.10); IMMATURE GRAN PERCENT AUTO 3 % (0-1); LYMPHOCYTES ABSOLUTE AUTO 0.95 K/mm3 (0.84-5.20); LYMPHOCYTES PERCENT AUTO 12 % (21-46); MONOCYTES PERCENT AUTO 14 % (4-13); Mean Corpuscular HGB 31.7 pg (26.0-34.0); Mean Corpuscular HGB Conc 33.5 g/dL (31.5-36.5); Mean Corpuscular Volume 95 fL (80-100); Mean Platelet Volume 10.1 fL (9.1-12.4); NEUTROPHILS ABSOLUTE AUTO 5.24 K/mm3 (1.96-9.15); NEUTROPHILS PERCENT AUTO 68 % (41-73); Platelet Count 274 K/mm3 (150-400); RDW Coefficient Variation 14.6 % (11.7-14.2); RDW Standard Deviation 50.1 fL (35.1-46.3); Red Blood Cell Count 3.53 M/mm3 (4.30-5.90); White Blood Cell Count 7.75 K/mm3 (4.00-11.30)
[2021-11-21 05:17] LABS: Alanine Aminotransfer (ALT/SGP 63 U/L (12-78); Albumin, Blood 1.9 g/dL (3.4-5.0); Albumin/Globulin Ratio 0.5 (0.8-1.8); Alk Phos 206 U/L (50-136); Anion Gap 10 mmol/L (6-16); Aspartate Aminotrans (AST/SGOT 138 U/L (12-37); Bilirubin, Direct 4.7 mg/dL (0.0-0.3); Bilirubin, Indirect 0.6 mg/dL (0.1-0.7); Bilirubin, Total 5.3 mg/dL (0.1-1.0); Blood Urea Nitrogen 8 mg/dL (8-24); Bun/Creatinine Ratio 16.1 (12.0-20.0); CO2, Blood 22 mmol/L (21-32); Calcium, Blood 8.1 mg/dL (8.5-10.1); Chloride, Blood 108 mmol/L (98-108); Globulin, Blood 3.7 g/dL (2.2-4.0); Glomerular Filtration Rate >60 (60-); Glucose, Blood 106 mg/dL (70-99); Phosphorus, Blood 4.3 mg/dL (2.5-4.9); Potassium, Blood 3.2 mmol/L (3.5-5.5); Sodium, Blood 140 mmol/L (136-145); Total Protein, Blood 5.6 g/dL (6.4-8.2)
--- NOTE | 2021-11-21 06:40 | NUR ---
SHIFT SUMMARY PT ON RESTRAINTS AND LETHARGIC TO START SHIFT. AT 2300 PT STARTED TO WAKE UP AND CONVERSE. MENTATION FROM PREVIOUS NIGHT IMPROVED SIGNIFICANTLY. ALERT AND ORIENTED X3-4. CIWA DOWN TO 3. ON RA MAINTAINING SATS OVER 95%. ELEVATED TEMP OVER 101 AT 0300. DOWN TO 98.5 AT 0647. C/O 8/10 ABDOMEN PAIN. MEDICATED PER EMAR WITH DILAUDID. AFTER DILAUDID ADMINISTRATION, BP TRENDING DOWN STARTING AT 0400. LOW 80'S SYSTOLIC. PROVIDER NOTIFIED, 500ML FLUID BOLUS ORDERED. NS INFUSING 100ML/HR IN LEFT POWERGLIDE. GARNER IN PLACE DRAINING LINDSEY COLORED URINE TO GRAVITY. PT IN BED SLEEPING WITH CALL ALARM AT SIDE. WILL CONTINUE TO MONITOR UNTIL REPORT GIVEN.
--- NOTE | 2021-11-21 10:09 | NUR ---
CARE ASSUMPTION THIS RN ASSUMED CARE AT 0700. PATIENT WHEN FIRST AWAKING WAS CONFUSED TO WHERE HE WAS, AND SAID "FUCK OFF" ONCE THE PATIENT CALMED DOWN AND WAS ORIENTATED TO WHERE HE WAS AT. PATIENT BEGAN TO GET OUT OF BED AND STOOD AT BEDSIDE AND TOOK A FEW STEPS AND THEN AGREED TO GET BACK INTO BED. HE APLOGIZED FOR SAYING THAT. HE STATED THE LAST THING HE REMEMBERED WAS WATCHING A MOVIE AT HOME WITH HIS FAMILY. HE CALLED HIS FIANCEJUANY, WHO HELPED CLARIFY THE SITUATION FOR HIM. VSS. NO PAIN, OR CHEST PAIN, OR SOB. PATIENT REPORTS NUMBNESS AND TINGLING IN LOWER EXTREMITIES, AND HIS LEFT LEG IS WEAKER AND FLACID. THIS IS A NEW FINDING. MD IN WITH PATIENT AND ORDERED A STAT CT SCAN. PATINT BILATERAL UPPER EXTREMITIES HAD THE SAME STRENGTH. PATIENT TRANSFERED A STAND BY ASSIST TO CT BED.
[2021-11-21 13:47] LABS: CHOL/HDL RATIO 27.3; Cholesterol 246 mg/dL (50-200); HDL Cholesterol 9 mg/dL (>39); LDL/HDL RATIO 21.2; Low Density Lipoprotein Chol 191 mg/dL (0-110); Magnesium, Blood 1.9 mg/dL (1.6-2.4); Triglycerides 230 mg/dL (30-140); Very Low Density Lipoprot Chol 46 mg/dL (6-28)
[2021-11-21 14:02] LABS: Percent Saturation 47.9 % (20.0-50.0)
--- NOTE | 2021-11-21 17:36 | NUR ---
SHIFT SUMMARY PATIENT IS A/OX4. VSS. SPO2>90% ON RA. PATIENT REPORTS NO CHEST PAIN OR SHORTNESS OF BREATH. PATIENT REPORTS RIGHT BACK PAIN THAT RADIATES TO THE LEFT SIDE. PATIENT ALSO REPORTS PAIN WHEN LIFTING UP LEFT LEG MORE THAN 4 INCHES OFF THE BED. PATIENT LEFT LEG IS ABLE TO LIFT ABOUT 2INCHES OFF THE BED, WHICH IS AN IMPROVEMENT FROM EARLIER, AND IS NO LONGER FLACID. THIS RN PROVIDD EDUCATION ON PANCREATITIS AND THE PAIN THAT IS ASSOCIATED WITH IT. THIS RN PROVIDED PAIN MEDICATION PER EMAR THROUGHOUT SHIFT. PATIENT GARNER CATH IN PLACE DRAINING WITH GRAVITY, LINDSEY COLORATION. PATIENT VITAMINS INFUSING VIA IV. CALL LIGHT WITHIN REACH AND BED IN LOWEST POSITION. WILL CONTINUE TO MONITOR AND PROVIDE CARE UNTIL HAND OFF WITH NEXT SHIFT.
[2021-11-22 04:11] LABS: BASOPHILS ABSOLUTE AUTO 0.09 K/mm3 (0.00-0.23); BASOPHILS PERCENT AUTO 1 % (0-2); EOSINOPHILS ABSOLUTE AUTO 0.13 K/mm3 (0.00-0.68); EOSINOPHILS PERCENT AUTO 2 % (0-6); Hematocrit 32.4 % (37.0-53.0); IMMATURE GRAN ABSOLUTE AUTO 0.16 K/mm3 (0.00-0.10); IMMATURE GRAN PERCENT AUTO 2 % (0-1); LYMPHOCYTES ABSOLUTE AUTO 1.16 K/mm3 (0.84-5.20); LYMPHOCYTES PERCENT AUTO 14 % (21-46); MONOCYTES ABSOLUTE AUTO 0.78 K/mm3 (0.16-1.47); MONOCYTES PERCENT AUTO 9 % (4-13); Mean Corpuscular HGB 32.3 pg (26.0-34.0); Mean Corpuscular Volume 95 fL (80-100); Mean Platelet Volume 10.2 fL (9.1-12.4); NEUTROPHILS PERCENT AUTO 72 % (41-73); Platelet Count 309 K/mm3 (150-400); RDW Coefficient Variation 14.5 % (11.7-14.2); RDW Standard Deviation 50.2 fL (35.1-46.3); Red Blood Cell Count 3.41 M/mm3 (4.30-5.90); White Blood Cell Count 8.42 K/mm3 (4.00-11.30)
[2021-11-22 05:01] LABS: Anion Gap 9 mmol/L (6-16); Blood Urea Nitrogen 6 mg/dL (8-24); Bun/Creatinine Ratio 11.4 (12.0-20.0); CO2, Blood 23 mmol/L (21-32); Calcium, Blood 8.1 mg/dL (8.5-10.1); Chloride, Blood 107 mmol/L (98-108); Creatinine, Blood 0.53 mg/dL (0.60-1.20); Glomerular Filtration Rate >60 (60-); Glucose, Blood 92 mg/dL (70-99); Phosphorus, Blood 2.9 mg/dL (2.5-4.9); Potassium, Blood 3.4 mmol/L (3.5-5.5); Sodium, Blood 139 mmol/L (136-145)
--- NOTE | 2021-11-22 05:11 | NUR ---
SHIFT SUMMARY: PT WITH FLAT AFFECT, TEARFUL AT TIMES, DID NOT SLEEP THROUGHOUT NIGHT. INTERMITTENT RESTLESSNESS, BED ALARM ACTIVATED AND PT ALSO ON CAMERA MONITOR AND WAS NOTED TO BE ADJUSTING IV PUMP, PUMP LOCKED BY NURSING STAFF. ATTEMPTING TO GET OOB AND NEEDS FREQ REDIRECTION. GARNER PATENT AND SRAINING DARK LINDSEY URINE TO BSD. C/O PAIN AND MEDICATED PRN PER MAR, PT VERY PARTICULAR ABOUT PAIN MEDS, STATING MEDS NEED TO ?BE MIXED FROM TO VIALS. THE LADY WHO FIXES MY NECK KNOWS HOW TO DO IT" PT ORIENTED TO SELF AND PLACE, BUT VERY FORGETFUL. TELE SHOWS SR, + MBM ON BSC THIS SHOFT, ABLE TO USE BSC WITH MINIMAL PHYSICAL ASSIST. PO INTAKE FAIR, HAS SPILLED MULTIPLE CUP OF WATER AND SODA ON FLOOR. BED LOCKED ANDLOW, CALL FLORIAN IN REACH AND BED ALARM ACTIVATED FOR PT SAFETY. JAMARCUS ATWOOD
--- NOTE | 2021-11-22 18:34 | NUR ---
SHIFT SUMMARY: PATIENT A&O THROUGHOUT SHIFT. PAIN STILL IN EPIGASTRIC AREA. PATIENT ANTSY AND WANTS TO WALK. WORKED WITH PT AND TOOK A WALK AROUND THE UNIT THIS PM WITH AN RN. PATIENT STATES HE IS FEELING BETTER. COLOR HAS IMPROVED. NO ADVERSE EVENTS THIS SHIFT. WILL REPORT TO NOC RN.
--- NOTE | 2021-11-23 01:46 | NUR ---
CALL [facility] TO TO NOTIFY HIM OF PT FALL WHILE THIS KALSOMINER WAS OFF THE UNIT. PER PT TECH, SHE WAS WALKING PT TO BATHROOM WHEN HE LOST HIS BALANCE AND FELL ONTO HIS BOTTOM, DID NOT HIT HIS HEAD BUT HIT HIS BACK AGAINST A CHAIR, VSS, SEE FLOW SHEET. WHEN THIS KALSOMINER RETURNED FROM LUNCH, PT ASSESSED, NO REDNESS OR INJURY NOTED TO BACK, PT DENIES PAIN, STATES "IT FEELS LIKE THE GOOD OLD DAYS WHEN I GOT FALLING DOWN DRUNK." JAMARCUS WALSH
[2021-11-23 03:51] LABS: BASOPHILS ABSOLUTE AUTO 0.12 K/mm3 (0.00-0.23); BASOPHILS PERCENT AUTO 1 % (0-2); EOSINOPHILS ABSOLUTE AUTO 0.12 K/mm3 (0.00-0.68); EOSINOPHILS PERCENT AUTO 1 % (0-6); Hematocrit 32.1 % (37.0-53.0); IMMATURE GRAN PERCENT AUTO 1 % (0-1); LYMPHOCYTES ABSOLUTE AUTO 1.17 K/mm3 (0.84-5.20); LYMPHOCYTES PERCENT AUTO 12 % (21-46); MONOCYTES ABSOLUTE AUTO 0.79 K/mm3 (0.16-1.47); MONOCYTES PERCENT AUTO 8 % (4-13); Mean Corpuscular HGB 32.3 pg (26.0-34.0); Mean Corpuscular HGB Conc 34.3 g/dL (31.5-36.5); Mean Corpuscular Volume 94 fL (80-100); Mean Platelet Volume 10.3 fL (9.1-12.4); NEUTROPHILS PERCENT AUTO 77 % (41-73); Platelet Count 314 K/mm3 (150-400); RDW Coefficient Variation 14.3 % (11.7-14.2); RDW Standard Deviation 48.6 fL (35.1-46.3); Red Blood Cell Count 3.41 M/mm3 (4.30-5.90)
[2021-11-23 04:44] LABS: Alanine Aminotransfer (ALT/SGP 65 U/L (12-78); Albumin, Blood 1.9 g/dL (3.4-5.0); Albumin/Globulin Ratio 0.5 (0.8-1.8); Alk Phos 204 U/L (50-136); Anion Gap 8 mmol/L (6-16); Aspartate Aminotrans (AST/SGOT 121 U/L (12-37); Bilirubin, Total 3.8 mg/dL (0.1-1.0); Blood Urea Nitrogen 6 mg/dL (8-24); Bun/Creatinine Ratio 12.6 (12.0-20.0); CO2, Blood 23 mmol/L (21-32); Calcium, Blood 7.9 mg/dL (8.5-10.1); Chloride, Blood 106 mmol/L (98-108); Creatinine, Blood 0.48 mg/dL (0.60-1.20); Globulin, Blood 3.5 g/dL (2.2-4.0); Glomerular Filtration Rate >60 (60-); Glucose, Blood 103 mg/dL (70-99); Potassium, Blood 3.4 mmol/L (3.5-5.5); Sodium, Blood 137 mmol/L (136-145); Total Protein, Blood 5.4 g/dL (6.4-8.2)
--- NOTE | 2021-11-23 18:14 | NUR ---
SHIFT SUMMARY PT ALERT AND ORIENTED X 4. VITAL SIGNS STABLE, PT REMAINS ON RA AND SPO2 MAINTAINS UPPER 90'S. PT CONTINUED TO REPORT PAIN IN HIS UPPER ABDOMEN THAT WAS RATED 8-9/10, MEDICATED PER EMAR. PT UTILIZED BEDSIDE URINAL FOR MAJORITY OF SHIFT BUT IN AFTERNOON WAS ABLE TO AMBULATE TO BATHROOM WITH 1 PERSON ASSIST. MRI DONE THIS AFTERNOON DUE TO WEAKNESS IN LEFT LEG, RESULTS PENDING. GIRLFRIEND OF PT BROUGHT PT A PIZZA FOR DINNER AND PT REPORTED 9/10 ABD PAIN WELL NAUSEA, HE WAS MEDICATED PER EMAR AND THIS NURSE CALLED DR. ROJO FOR FULL LIQUID DIET GIVEN. PT NOW APPEARS TO BE SLEEPING. BED ALARM IS ON, CALL LIGHT IN REACH. PT IS NOW MEDICAL STATUS, NO TELE. WILL CONTINUE TO MONITORR UNTIL REPORT GIVEN.
[2021-11-24 05:00] LABS: BASOPHILS PERCENT AUTO 1 % (0-2); EOSINOPHILS ABSOLUTE AUTO 0.11 K/mm3 (0.00-0.68); EOSINOPHILS PERCENT AUTO 1 % (0-6); Hematocrit 32.7 % (37.0-53.0); Hemoglobin 11.1 g/dL (13.5-17.5); IMMATURE GRAN PERCENT AUTO 1 % (0-1); LYMPHOCYTES ABSOLUTE AUTO 1.61 K/mm3 (0.84-5.20); LYMPHOCYTES PERCENT AUTO 15 % (21-46); MONOCYTES ABSOLUTE AUTO 0.59 K/mm3 (0.16-1.47); MONOCYTES PERCENT AUTO 6 % (4-13); Mean Corpuscular HGB 31.8 pg (26.0-34.0); Mean Corpuscular HGB Conc 33.9 g/dL (31.5-36.5); Mean Corpuscular Volume 94 fL (80-100); Mean Platelet Volume 10.3 fL (9.1-12.4); NEUTROPHILS ABSOLUTE AUTO 8.11 K/mm3 (1.96-9.15); NEUTROPHILS PERCENT AUTO 76 % (41-73); Platelet Count 329 K/mm3 (150-400); RDW Coefficient Variation 14.4 % (11.7-14.2); RDW Standard Deviation 49.2 fL (35.1-46.3); Red Blood Cell Count 3.49 M/mm3 (4.30-5.90); White Blood Cell Count 10.62 K/mm3 (4.00-11.30)
[2021-11-24 05:33] LABS: Alanine Aminotransfer (ALT/SGP 67 U/L (12-78); Albumin, Blood 1.9 g/dL (3.4-5.0); Albumin/Globulin Ratio 0.5 (0.8-1.8); Alk Phos 209 U/L (50-136); Anion Gap 7 mmol/L (6-16); Aspartate Aminotrans (AST/SGOT 121 U/L (12-37); Bilirubin, Total 3.7 mg/dL (0.1-1.0); Blood Urea Nitrogen 6 mg/dL (8-24); Bun/Creatinine Ratio 12.4 (12.0-20.0); CO2, Blood 25 mmol/L (21-32); Calcium, Blood 8.3 mg/dL (8.5-10.1); Chloride, Blood 106 mmol/L (98-108); Creatinine, Blood 0.48 mg/dL (0.60-1.20); Globulin, Blood 4.2 g/dL (2.2-4.0); Glomerular Filtration Rate >60 (60-); Glucose, Blood 101 mg/dL (70-99); Potassium, Blood 3.3 mmol/L (3.5-5.5); Sodium, Blood 138 mmol/L (136-145); Total Protein, Blood 6.1 g/dL (6.4-8.2)
--- NOTE | 2021-11-24 06:32 | NUR ---
SHIFT SUMMARY PATIENT A&OX4, WITH SOME GENERALIZED WEAKNESS. LEFT SIDED WEAKNESS SEEMINGLY RESOLVED. CAN BE IMPULSIVE AT TIMES AND FORGETS LIMITS WELL BEGAN TURNING HIS OWN BED ALARM OFF. FALL PRECAUTIONS AND CAMERA IN PLACE. BED ALARM TAPED UP IN ATTEMPT TO PREVENT HIM TURNING IT OFF. UNSTEADY BY HIMSELF AND NEEDS SBA AND WALKER FOR WALKING IN THE ROOM. CIWA NEGATIVE ALL NIGHT. VSS. ON RA. NO TELE IN PLACE. PRN FENT AND TRAM GIVEN X1 FOR 10/10 MIGRAINE WITH GOOD RELIEF. TOLEATING FLD WITHOUT ISSUE AND EDUCATED PATIENT ON TAKING IT SLOW AND SMALL BITES AT A TIME. USING URINAL TO VOID WITH DECENT OUTPUT THORUGHOUT SHIFT. NO NAUSEA. IS IN GOOD SPIRITS ABOUT DETOXING FOR HIS SON. WILL CONTINUE TO MONITOR UNTIL REPORT GIVEN TO FLETCHER RICKETTS.
--- NOTE | 2021-11-24 18:26 | NUR ---
SHIFT SUMMARY: PT ALERT, ORIENTED TO SELF, LOCATION AND SITUATION. PT CONTINUES TO BE IMPULSIVE, TURNING OFF BED ALARM AND EXITING BED, PT APPEARS TO BECOME MORE MINDFUL OF PRESSING CALL BUTTON TOWARDS THE END OF THE DAY AFTER NUMEROUS REMINDERS. PT IS COOPERATIVE WITH CARE. ABDOMINAL PAIN PERSISTS, PRN PAIN MEDICATIONS PROVIDED. FULL LIQUID DIET CONTINUES. PT AMBULATES TO/FROM RESTROOM T/OUT THE SHIFT USING FWW AND SBA, MILD WEAKNESS. WILL CONTINUE TO MONITOR AND TREAT ACCORDINGLY UNTIL CHANGE OF SHIFT.
--- NOTE | 2021-11-25 05:19 | NUR ---
SHIFT SUMMARY ASSUMED CARE OF PT AT 1900. PT IS A/OX4, PT CALLS APPROPAIOTELY AND IS WALKING STEADILY ON HIS FEET. HEART SOUNDS REGULAR, LUNG SOUNDS CLEAR. VITALS STABLE. PT WAS CONTIENT T/O THE NIGHT. CALL LIGHT IN REACH, BED IN LOWEST POSITION.
[2021-11-25 05:22] LABS: BASOPHILS ABSOLUTE AUTO 0.13 K/mm3 (0.00-0.23); BASOPHILS PERCENT AUTO 1 % (0-2); EOSINOPHILS ABSOLUTE AUTO 0.12 K/mm3 (0.00-0.68); EOSINOPHILS PERCENT AUTO 1 % (0-6); Hematocrit 34.4 % (37.0-53.0); Hemoglobin 11.5 g/dL (13.5-17.5); IMMATURE GRAN ABSOLUTE AUTO 0.11 K/mm3 (0.00-0.10); IMMATURE GRAN PERCENT AUTO 1 % (0-1); LYMPHOCYTES ABSOLUTE AUTO 1.71 K/mm3 (0.84-5.20); LYMPHOCYTES PERCENT AUTO 16 % (21-46); MONOCYTES ABSOLUTE AUTO 0.73 K/mm3 (0.16-1.47); MONOCYTES PERCENT AUTO 7 % (4-13); Mean Corpuscular HGB 31.9 pg (26.0-34.0); Mean Corpuscular HGB Conc 33.4 g/dL (31.5-36.5); Mean Corpuscular Volume 96 fL (80-100); Mean Platelet Volume 10.4 fL (9.1-12.4); NEUTROPHILS ABSOLUTE AUTO 8.22 K/mm3 (1.96-9.15); NEUTROPHILS PERCENT AUTO 75 % (41-73); Platelet Count 316 K/mm3 (150-400); RDW Coefficient Variation 14.5 % (11.7-14.2); White Blood Cell Count 11.02 K/mm3 (4.00-11.30)
[2021-11-25 06:05] LABS: Alanine Aminotransfer (ALT/SGP 67 U/L (12-78); Albumin, Blood 2.1 g/dL (3.4-5.0); Albumin/Globulin Ratio 0.5 (0.8-1.8); Alk Phos 223 U/L (50-136); Anion Gap 9 mmol/L (6-16); Aspartate Aminotrans (AST/SGOT 127 U/L (12-37); Bilirubin, Total 4.2 mg/dL (0.1-1.0); Blood Urea Nitrogen 5 mg/dL (8-24); Bun/Creatinine Ratio 10.4 (12.0-20.0); CO2, Blood 25 mmol/L (21-32); Calcium, Blood 8.4 mg/dL (8.5-10.1); Chloride, Blood 103 mmol/L (98-108); Creatinine, Blood 0.48 mg/dL (0.60-1.20); Globulin, Blood 3.9 g/dL (2.2-4.0); Glomerular Filtration Rate >60 (60-); Glucose, Blood 102 mg/dL (70-99); Potassium, Blood 3.7 mmol/L (3.5-5.5); Sodium, Blood 137 mmol/L (136-145)
[2021-11-25] MEDS ORDERED: ALMACONE SUSPE355 ML PO (10:18)
[2021-11-25] MEDS ORDERED: OMEP20ER PO (10:19)
[2021-11-25] MEDS ORDERED: Nicoderm Cq1 EAC1 TOP (10:19)
--- NOTE | 2021-11-25 11:01 | NUR ---
DISCHARGE UPDATE DISCHARGE INSTRUCTIONS GONE OVER AND SIGNED WITH PT AT 1045. PT LEFT UNIT AT 1100 VIA WHEELCHAIR AND ON RA. PT ABLE TO TRANSFER SELF TO WHELLCHAIR WITH NO ASSISTANCE. PT BELONGINGS IN BAG AND WITH PT. PT CIGARETTES REMOVED FROM LOCK BOX AND WITH PT FOR DISCHARGE. PT BEING PICKED UP BY GIRLFRIEND.
== END 2021-11-25 10:59 | disposition home or self-care (01) | DRG 439 ==
LOC: ER 10:34 → PCU 15:25
PROVIDERS: Emergency Medicine; Family Medicine; ADMIT Internal Medicine
PROC: HZ2ZZZZ Detoxification Services for Substance Abuse Treatment (ICD-10-PCS; principal; 2021-11-14)
DX: K85.20 Alcohol induced acute pancreatitis without necrosis or infection (principal); G93.40 Encephalopathy, unspecified; E87.1 Hypo-osmolality and hyponatremia; R65.10 Systemic inflammatory response syndrome (SIRS) of non-infectious origin without acute organ dysfunction; E87.2 Acidosis; F10.231 Alcohol dependence with withdrawal delirium; F41.9 Anxiety disorder, unspecified; E87.6 Hypokalemia; D69.59 Other secondary thrombocytopenia; E83.39 Other disorders of phosphorus metabolism; G83.34 Monoplegia, unspecified affecting left nondominant side; Y90.8 Blood alcohol level of 240 mg/100 ml or more; F17.210 Nicotine dependence, cigarettes, uncomplicated; D64.9 Anemia, unspecified; I95.9 Hypotension, unspecified; Z71.41 Alcohol abuse counseling and surveillance of alcoholic; Z79.51 Long term (current) use of inhaled steroids; Z79.899 Other long term (current) drug therapy
CPT/HCPCS: 36415; 70450; 70551; 71045; 71260; 74177; 76705; 80053; 80061; 80069; 81001; 81003; 82140; 82248; 82607; 82728; 82746; 82947; 83540; 83550; 83615; 83690; 83735; 84100; 84132; 84145; 84484; 85025; 85379; 87086; 93005; 93010; 96365; 96366; 96375; 97110; 97112; 97116; 97162; 97166; 97530; 99285-25; A9270; C1751; C9113; G0480; J0780; J1170; J1650; J2060; J2405; J3010; J3411; J3475; J3480; J7030; J7040; J7042; J7060; Q9967

== ENCOUNTER 2022-03-26 21:41 | Inpatient (IN) | payer OTHER ==
[~2022-03-26] VITALS: Ht 185.4 cm; Wt 81.7 kg
[~2022-03-26 21:41] MED LIST changes: +ALMACONE SUSPE355 ML PO; +METO25ER PO; +Nicoderm Cq1 EAC1 TOP; +OMEP20ER PO
[2022-03-26 22:33] LABS: BASOPHILS ABSOLUTE AUTO 0.14 K/mm3 (0.00-0.23); BASOPHILS PERCENT AUTO 1 % (0-2); EOSINOPHILS ABSOLUTE AUTO 0.07 K/mm3 (0.00-0.68); EOSINOPHILS PERCENT AUTO 1 % (0-6); Hematocrit 36.3 % (37.0-53.0); Hemoglobin 12.4 g/dL (13.5-17.5); IMMATURE GRAN ABSOLUTE AUTO 0.05 K/mm3 (0.00-0.10); IMMATURE GRAN PERCENT AUTO 1 % (0-1); LYMPHOCYTES PERCENT AUTO 14 % (21-46); MONOCYTES PERCENT AUTO 5 % (4-13); Mean Corpuscular HGB 33.2 pg (26.0-34.0); Mean Corpuscular HGB Conc 34.2 g/dL (31.5-36.5); Mean Corpuscular Volume 97 fL (80-100); Mean Platelet Volume 9.9 fL (9.1-12.4); NEUTROPHILS ABSOLUTE AUTO 8.66 K/mm3 (1.96-9.15); NEUTROPHILS PERCENT AUTO 79 % (41-73); Platelet Count 181 K/mm3 (150-400); RDW Standard Deviation 57.7 fL (35.1-46.3); Red Blood Cell Count 3.73 M/mm3 (4.30-5.90); White Blood Cell Count 11.02 K/mm3 (4.00-11.30)
[2022-03-26 22:55] LABS: Alanine Aminotransfer (ALT/SGP 54 U/L (12-78); Albumin, Blood 2.4 g/dL (3.4-5.0); Albumin/Globulin Ratio 0.4 (0.8-1.8); Alk Phos 349 U/L (50-136); Anion Gap 12 mmol/L (6-16); Aspartate Aminotrans (AST/SGOT 299 U/L (12-37); Bilirubin, Total 2.9 mg/dL (0.1-1.0); Blood Urea Nitrogen 5 mg/dL (8-24); Bun/Creatinine Ratio 12.6 (12.0-20.0); CO2, Blood 26 mmol/L (21-32); Calcium, Blood 7.9 mg/dL (8.5-10.1); Chloride, Blood 104 mmol/L (98-108); Globulin, Blood 5.6 g/dL (2.2-4.0); Glomerular Filtration Rate >60 (60-); Glucose, Blood 117 mg/dL (70-99); Potassium, Blood 3.4 mmol/L (3.5-5.5); Sodium, Blood 142 mmol/L (136-145)
[2022-03-27 03:59] LABS: Blood, Urine Neg (Neg); Glucose Qualitative, Urine Neg (Neg); Ketones, Urine Neg (Neg); Leukocyte Esterase, Urine Neg (Neg); Nitrite, Urine Neg (Neg); Protein, Urine 1+ (Neg); Urobilinogen, Urine 3+ (Normal); pH, Urine 6.5 (5.0-8.0)
[2022-03-27 04:14] LABS: Bilirubin, Urine 1+ (Neg)
[2022-03-27 04:15] LABS: Appearance, Urine Clear (Clear); Color, Urine Yellow (P-Yellow)
[2022-03-27 06:23] LABS: BASOPHILS ABSOLUTE AUTO 0.08 K/mm3 (0.00-0.23); BASOPHILS PERCENT AUTO 1 % (0-2); EOSINOPHILS ABSOLUTE AUTO 0.05 K/mm3 (0.00-0.68); EOSINOPHILS PERCENT AUTO 1 % (0-6); Hematocrit 33.3 % (37.0-53.0); Hemoglobin 10.9 g/dL (13.5-17.5); IMMATURE GRAN ABSOLUTE AUTO 0.03 K/mm3 (0.00-0.10); IMMATURE GRAN PERCENT AUTO 0 % (0-1); LYMPHOCYTES ABSOLUTE AUTO 1.26 K/mm3 (0.84-5.20); LYMPHOCYTES PERCENT AUTO 18 % (21-46); MONOCYTES ABSOLUTE AUTO 0.55 K/mm3 (0.16-1.47); MONOCYTES PERCENT AUTO 8 % (4-13); Mean Corpuscular HGB 32.6 pg (26.0-34.0); Mean Corpuscular HGB Conc 32.7 g/dL (31.5-36.5); Mean Corpuscular Volume 100 fL (80-100); Mean Platelet Volume 10.2 fL (9.1-12.4); NEUTROPHILS ABSOLUTE AUTO 5.08 K/mm3 (1.96-9.15); NEUTROPHILS PERCENT AUTO 72 % (41-73); Platelet Count 129 K/mm3 (150-400); RDW Coefficient Variation 16.2 % (11.7-14.2); RDW Standard Deviation 59.3 fL (35.1-46.3); Red Blood Cell Count 3.34 M/mm3 (4.30-5.90); White Blood Cell Count 7.05 K/mm3 (4.00-11.30)
[2022-03-27 06:53] LABS: Alanine Aminotransfer (ALT/SGP 50 U/L (12-78); Albumin, Blood 2.2 g/dL (3.4-5.0); Albumin/Globulin Ratio 0.4 (0.8-1.8); Alk Phos 309 U/L (50-136); Anion Gap 10 mmol/L (6-16); Aspartate Aminotrans (AST/SGOT 263 U/L (12-37); Bilirubin, Total 2.6 mg/dL (0.1-1.0); Blood Urea Nitrogen 4 mg/dL (8-24); Bun/Creatinine Ratio 10.4 (12.0-20.0); CO2, Blood 27 mmol/L (21-32); Calcium, Blood 7.7 mg/dL (8.5-10.1); Chloride, Blood 104 mmol/L (98-108); Creatinine, Blood 0.39 mg/dL (0.60-1.20); Glomerular Filtration Rate >60 (60-); Glucose, Blood 88 mg/dL (70-99); Potassium, Blood 3.2 mmol/L (3.5-5.5); Sodium, Blood 141 mmol/L (136-145); Total Protein, Blood 7.2 g/dL (6.4-8.2)
--- NOTE | 2022-03-27 08:02 | NUR ---
NEW ADMISSION FROM ER. ON ADMISSION PATIENT STATES THAT HE IS IN A LOT OF PAIN REQUESTING PAIN MEDICATTION HOWEVER FENTANYL GIVEN AT 0545 PRIOR TO PATIENT COMING TO THE FLOOR. PATIENT IS A/OX4 HOWEVER FORGETFUL. PT INITIALLY STATING HIS NOSE ITCHES WHEN HE TAKES FENTANYL AND HE HAD THIS HAPPEND ON PRIOR ADMISSION. LATER STATES THAT THIS HAPPESN WITH PAIN MEDICATIONS. PATIENT REPORTS THAT HE GOES THORUGH PERIODS IN WHICH HE IS NOT ABLE TO URINATE OR DOES NOT HAVE BM FOR TEN DAYS. STATES THAT THIS RESOLVES ON ITS OWN AND AFTER BEING CONSTIPATED HE HAS DIARRHEA. AT CURRENT HE REPORTS HAVING A BM YESTERDAY THAT WAS FORMED AND BLACK. PT ALSO REPORTS THAT HE IS NOT TAKING ANY MEDICATIONS DUE TO NOT HAVING INSURANCE AND NOT BEING ABLE TO AFFORD. PT NOTED WITH EPISODES IN WHICH HE SEVERELY BELCHES AND APPEARS HE IS GOING TO VOMIT HOWEVER HE DENIES NAUSEA. STATES THAT THIS HAPPENS QUITE OFTEN DURING THE DAY AND THEY RESOLVE ON THEIR OWN. PER PT HE GETS AROUND USING A CRUTCH DUE TO NOT BEING ABLE TO MOVE AND HAVING FREQUENT FALLS. PT STRONGLY REFUSED BED ALARM AND PROMISED TO NOT GET UP. STATES LAST TIME HE WAS HERE HE LEARNED HOW TO TURN IT OFF AND WOULD BE USELESS. PT C/O OF POTASSIUM BURNING AND RATE DECREASED TO 40 ML/HR WITH GOOD EFFECT.
--- NOTE | 2022-03-27 15:30 | NUR ---
Attempted to visit twice today and unable to due to work up in progress and CM visiting when I came by. EMR reviewed. Will try again tomorrow and hope for testing results available to pt for discussion of desired plan of care. CM note reviewed also.
[2022-03-27 16:33] LABS: Hematocrit 33.1 % (37.0-53.0); Hemoglobin 11.3 g/dL (13.5-17.5)
--- NOTE | 2022-03-27 18:43 | NUR ---
SHIFT SUMMARY PATIENT A&OX4. ADMITTED THIS AM FROM ER. PATIENT HAS HX OF ALCOHOL ABUSE. LIVER MASS FOUND ON CT. PATIENT FEELING WEAK AND 1PA WHEN TRANSFERRING TO WHEELCHAIR FOR MRI. PATIENT HAD MULTIPLE EPISODES OF DRY HEAVING BUT STATED THAT HE IS NOT NAUSEA AND THAT HE HAS BEEN HAVING THESE EPISODES SINCE DISCHARGED IN NOVEMBER. ON CLEAR LIQUID DIET, TOLERATING WELL. PATIENT BEGAN SHIFT C/O ABDOMINAL PAIN 08/01. MEDICATED MULTIPLE TIMES T/O SHIFT FOR PAIN PER JAN. PAIN IS AT A MORE TOLERABLE LEVEL 03/31. PATIENT BEGAN HAVING TREMORS AND SWEATING. EVENTUALLY ADMITTED TO HEAVILY DRINKING FOR 25+ DAYS AND THAT HE STOPPED 3 DAYS AGO. PATIENT DOES NOT WANT FAMILY TO KNOW. MEDICATED WITH LIBRIUM. PATIENT STATED FEELING MUCH BETTER. TREMORS STILL PRESENT BUT IMPROVED. PATIENT C/O ANXIETY DURING MRI AND WAS UNABLE TO COMPLETE MRI UNTIL 5PM AFTER GIVEN ANXIETY MEDICATIONS. LAST CIWA SCORE OF 15. WILL CONTINUE TO MONITOR.
--- NOTE | 2022-03-28 03:35 | NUR ---
SHIFT SUMMARY: A/OX4, SUPERVISION STANDING AT BEDSIDE. PT REPORTED PREVIOUSLY FEELING VERY WEAK AND SHAKY, NOW ABLE TO STAND WELL WITH NO DIZZINESS OR WEAKNESS REPORTED. CONTINUED ABDOMINAL PAIN MANAGED WITH PRN PAIN MEDICATIONS- REVIEW EMAR. CIWA'S ASSESSED HIGHEST AND SCORED LESS THAN 8 THROUGHOUT THE NIGHT. MD GAVE ORDER TO ADVANCE DIET TOLERATED, PATIENT TOLERATING CLEAR LIQUIDS AND EATING CRACKERS WITH NO PROBLEMS AT THIS TIME. NO NAUSEA OR VOMITING THROUGHOUT THE NIGHT.
[2022-03-28 05:08] LABS: Hematocrit 31.6 % (37.0-53.0); Hemoglobin 10.5 g/dL (13.5-17.5); Mean Corpuscular HGB 33.1 pg (26.0-34.0); Mean Corpuscular HGB Conc 33.2 g/dL (31.5-36.5); Mean Corpuscular Volume 100 fL (80-100); Mean Platelet Volume 10.6 fL (9.1-12.4); Platelet Count 86 K/mm3 (150-400); RDW Coefficient Variation 15.7 % (11.7-14.2); RDW Standard Deviation 58.2 fL (35.1-46.3); Red Blood Cell Count 3.17 M/mm3 (4.30-5.90); White Blood Cell Count 6.93 K/mm3 (4.00-11.30)
[2022-03-28 05:52] LABS: Alanine Aminotransfer (ALT/SGP 42 U/L (12-78); Albumin, Blood 2.1 g/dL (3.4-5.0); Albumin/Globulin Ratio 0.4 (0.8-1.8); Alk Phos 275 U/L (50-136); Anion Gap 10 mmol/L (6-16); Aspartate Aminotrans (AST/SGOT 204 U/L (12-37); Bilirubin, Total 3.9 mg/dL (0.1-1.0); Blood Urea Nitrogen 3 mg/dL (8-24); Bun/Creatinine Ratio 7.5 (12.0-20.0); CO2, Blood 25 mmol/L (21-32); Calcium, Blood 7.6 mg/dL (8.5-10.1); Chloride, Blood 99 mmol/L (98-108); Globulin, Blood 4.8 g/dL (2.2-4.0); Glomerular Filtration Rate >60 (60-); Glucose, Blood 98 mg/dL (70-99); Phosphorus, Blood 2.1 mg/dL (2.5-4.9); Potassium, Blood 3.1 mmol/L (3.5-5.5); Sodium, Blood 134 mmol/L (136-145); Total Protein, Blood 6.9 g/dL (6.4-8.2)
--- NOTE | 2022-03-28 17:15 | NUR ---
END OF SHIFT SUMMARY: Pt AOx4, CIWA score 5-7. Pt reports moderate/severe pain in RUQ/LLQ, tender on palpation. PRN pain, nausea, anxiety given this shift. Pt reports constant severe pain. Pt tolerating regular diet. IV fluids infusing, IV Mag & Potassium administred this shift. Reports mild muscle spasms in legs. Pt gave permission to update girlfriend, but does not want staff sharing events that resulted in hospitilization shared. Adequte urine ouput this shift, urine color red/orange. VSS.
[2022-03-29 05:24] LABS: Hematocrit 31.2 % (37.0-53.0); Hemoglobin 10.2 g/dL (13.5-17.5); Mean Corpuscular HGB 33.4 pg (26.0-34.0); Mean Corpuscular HGB Conc 32.7 g/dL (31.5-36.5); Mean Corpuscular Volume 102 fL (80-100); Mean Platelet Volume 11.1 fL (9.1-12.4); Platelet Count 71 K/mm3 (150-400); RDW Coefficient Variation 15.5 % (11.7-14.2); RDW Standard Deviation 58.4 fL (35.1-46.3); Red Blood Cell Count 3.05 M/mm3 (4.30-5.90); White Blood Cell Count 6.45 K/mm3 (4.00-11.30)
[2022-03-29 05:45] LABS: Albumin, Blood 2.2 g/dL (3.4-5.0); Anion Gap 9 mmol/L (6-16); Blood Urea Nitrogen 3 mg/dL (8-24); Bun/Creatinine Ratio 6.4 (12.0-20.0); CO2, Blood 26 mmol/L (21-32); Chloride, Blood 100 mmol/L (98-108); Creatinine, Blood 0.47 mg/dL (0.60-1.20); Glomerular Filtration Rate >60 (60-); Glucose, Blood 95 mg/dL (70-99); Magnesium, Blood 1.3 mg/dL (1.6-2.4); Phosphorus, Blood 2.5 mg/dL (2.5-4.9); Sodium, Blood 135 mmol/L (136-145)
--- NOTE | 2022-03-29 06:20 | NUR ---
SHIFT SUMMARY: A/OX4 PATIENT NOW ADLIB IN ROOM AND INDEPENDENT WITH ADL'S. DECLINES FEELING DIZZY OR WEAK WHEN AMBULATING. PATIENT REPORTING CONTINUED PAIN THROUGHOUT THE NIGHT, MANAGED PER EMAR. CIWA SCORE REMAINED LESS THAN 8 THROUGHOUT SHIFT. URINE IS NO LONGER DARK/ORANGE AND IS A LIGHT YELLOW CLEAR APPEARANCE. PATIENT CONTINUES TO TOLERATE PO SOLID FOOD, NO NAUSEA OR VOMITING THROUGHOUT THE NIGHT. BED IN LOW POSITION, CALL FLORIAN IN REACH.
[2022-03-29] MEDS ORDERED: Percocet 5-3251 EACH PO (10:05)
[2022-03-29] MEDS ORDERED: MULVITA PO (10:05)
[2022-03-29] MEDS ORDERED: MIRALAX17 GM PO (10:06)
[2022-03-29] MEDS ORDERED: B-1100 M1 PO (10:06)
[2022-03-29] MEDS ORDERED: PANT40 PO (10:07)
--- NOTE | 2022-03-29 11:14 | NUR ---
PT DISCHARGED TODAY assessed pt at bedside, provided education on ETOH cessation. Am lab draw, MG 1.3, IV MG ordered this am. Pt reported painful/burning at IV site, refused to finish MG IV. Removed IV, site WNL, flushed, no pain/redness/edema observed. wrote script for percocet for pain, other meds faxed to [facility]. Pt continues to report abd pain, pt ambulating halls w/o difficulty. tolerating regular diet. Discharge instructions provided, pt verbalized understanding. Pt left unit at 1044.
== END 2022-03-29 10:57 | disposition home or self-care (01) | DRG 439 ==
LOC: ER 21:41 → MEDS 03-27 04:33 → ER 03-27 05:18 → MEDS 03-27 05:58
PROVIDERS: Internal Medicine; Student in an Organized Health Care Education/Training Program; ADMIT Internal Medicine
DX: K85.20 Alcohol induced acute pancreatitis without necrosis or infection (principal); F10.239 Alcohol dependence with withdrawal, unspecified; K70.11 Alcoholic hepatitis with ascites; E86.0 Dehydration; F17.210 Nicotine dependence, cigarettes, uncomplicated; E87.6 Hypokalemia; E83.39 Other disorders of phosphorus metabolism; E83.42 Hypomagnesemia; D69.6 Thrombocytopenia, unspecified; K76.0 Fatty (change of) liver, not elsewhere classified; R16.0 Hepatomegaly, not elsewhere classified; E80.6 Other disorders of bilirubin metabolism; K70.30 Alcoholic cirrhosis of liver without ascites; F40.240 Claustrophobia; R74.01 Elevation of levels of liver transaminase levels; Z79.899 Other long term (current) drug therapy; D69.49 Other primary thrombocytopenia; K29.20 Alcoholic gastritis without bleeding
CPT/HCPCS: 36415; 74177; 74183; 80053; 80069; 82105; 82947; 83690; 83735; 84100; 85014; 85018; 85025; 85027; 87040; 96365; 96368; 96375; 96376; 99285-25; A9270; A9581; C9113; J0290; J0696; J1170; J2060; J2270; J2405; J3010; J3411; J3475; J3480; J7030; J7060; Q9967

== ENCOUNTER 2022-04-05 13:12 | Inpatient (IN) | payer OTHER ==
[~2022-04-05] VITALS: Ht 185.4 cm; Wt 90.8 kg
[~2022-04-05 13:12] MED LIST changes: +B-1100 M1 PO; +MIRALAX17 GM PO; +MULVITA PO; +PANT40 PO; +Percocet 5-3251 EACH PO
[2022-04-05 14:44] LABS: BASOPHILS ABSOLUTE AUTO 0.11 K/mm3 (0.00-0.23); BASOPHILS PERCENT AUTO 2 % (0-2); EOSINOPHILS ABSOLUTE AUTO 0.08 K/mm3 (0.00-0.68); EOSINOPHILS PERCENT AUTO 1 % (0-6); Hematocrit 34.4 % (37.0-53.0); Hemoglobin 11.6 g/dL (13.5-17.5); IMMATURE GRAN ABSOLUTE AUTO 0.02 K/mm3 (0.00-0.10); IMMATURE GRAN PERCENT AUTO 0 % (0-1); LYMPHOCYTES ABSOLUTE AUTO 0.95 K/mm3 (0.84-5.20); LYMPHOCYTES PERCENT AUTO 13 % (21-46); MONOCYTES ABSOLUTE AUTO 0.74 K/mm3 (0.16-1.47); MONOCYTES PERCENT AUTO 10 % (4-13); Mean Corpuscular HGB 33.6 pg (26.0-34.0); Mean Corpuscular HGB Conc 33.7 g/dL (31.5-36.5); Mean Corpuscular Volume 100 fL (80-100); Mean Platelet Volume 10.2 fL (9.1-12.4); NEUTROPHILS ABSOLUTE AUTO 5.25 K/mm3 (1.96-9.15); NEUTROPHILS PERCENT AUTO 74 % (41-73); Platelet Count 233 K/mm3 (150-400); RDW Coefficient Variation 15.4 % (11.7-14.2); RDW Standard Deviation 56.4 fL (35.1-46.3); Red Blood Cell Count 3.45 M/mm3 (4.30-5.90); White Blood Cell Count 7.15 K/mm3 (4.00-11.30)
[2022-04-05 15:16] LABS: Albumin, Blood 2.2 g/dL (3.4-5.0); Albumin/Globulin Ratio 0.4 (0.8-1.8); Bilirubin, Total 2.7 mg/dL (0.1-1.0); Bun/Creatinine Ratio 14.9 (12.0-20.0); Calcium, Blood 8.1 mg/dL (8.5-10.1); Creatinine, Blood 0.4 mg/dL (0.60-1.20); Globulin, Blood 5.1 g/dL (2.2-4.0); Potassium, Blood 3.3 mmol/L (3.5-5.5); Total Protein, Blood 7.3 g/dL (6.4-8.2)
[2022-04-05 21:02] LABS: Hematocrit 32.2 % (37.0-53.0); Hemoglobin 10.7 g/dL (13.5-17.5)
[2022-04-05 21:10] LABS: International Normalized Ratio 1.29; Prothrombin Time Results 13.3 Sec (9.7-11.5)
[2022-04-05 21:40] LABS: Influenza B, PCR NEGATIVE (NEGATIVE); Resp Syncytial Virus, PCR NEGATIVE (NEGATIVE); SARS-Cov-2 (COVID-19) PCR, MMC NEGATIVE (NEGATIVE)
[2022-04-05 22:06] LABS: Influenza A, PCR POSITIVE (NEGATIVE)
--- NOTE | 2022-04-06 00:12 | NUR ---
ASSUMPTION OF CARE Assumed care of pt at 0012 as an ER admit. Patient able to transfer self from rney to bed. C/o abdominal pain that is not being relieved with PRN's. Reports drinking up to a handle of hard liquor daily until he quit about 1 week ago. Patient's spouse is not aware of this, patient would like to keep it that way and tell her himself. Temporal fever of 100.3, patient states he is cold and is shivering. Light amount of blankets given and education on not bundling up too much. ST on tele 120-130's. BP stable. Bed alarm on, bed in low position, instructed to call.
[2022-04-06 00:38] LABS: Source, Urine Clean Catch
[2022-04-06 00:40] LABS: Blood, Urine Neg (Neg); Glucose Qualitative, Urine Neg (Neg); Ketones, Urine Neg (Neg); Leukocyte Esterase, Urine Neg (Neg); Nitrite, Urine Neg (Neg); Protein, Urine 1+ (Neg); Urobilinogen, Urine 3+ (Normal)
--- NOTE | 2022-04-06 00:45 | NUR ---
Patient placed in droplet precautions, Flu A positive.
[2022-04-06 00:51] LABS: Appearance, Urine Clear (Clear); Bilirubin, Urine 2+ (Neg); Color, Urine Amber (P-Yellow)
[2022-04-06 04:18] LABS: Hematocrit 33.6 % (37.0-53.0); Mean Corpuscular HGB 33.2 pg (26.0-34.0); Mean Corpuscular HGB Conc 32.7 g/dL (31.5-36.5); Mean Corpuscular Volume 102 fL (80-100); Mean Platelet Volume 10.1 fL (9.1-12.4); Platelet Count 156 K/mm3 (150-400); RDW Standard Deviation 56.6 fL (35.1-46.3); Red Blood Cell Count 3.31 M/mm3 (4.30-5.90); White Blood Cell Count 5.38 K/mm3 (4.00-11.30)
[2022-04-06 04:33] LABS: International Normalized Ratio 1.31; Prothrombin Time Results 13.5 Sec (9.7-11.5)
[2022-04-06 04:36] LABS: Albumin, Blood 2.1 g/dL (3.4-5.0); Albumin/Globulin Ratio 0.4 (0.8-1.8); Bilirubin, Total 3.1 mg/dL (0.1-1.0); Bun/Creatinine Ratio 9.3 (12.0-20.0); Calcium, Blood 7.5 mg/dL (8.5-10.1); Creatinine, Blood 0.43 mg/dL (0.60-1.20); Magnesium, Blood 1.5 mg/dL (1.6-2.4); Potassium, Blood 3.6 mmol/L (3.5-5.5); Total Protein, Blood 7.1 g/dL (6.4-8.2)
[2022-04-06 04:46] LABS: BAND PERCENT MAN 15 % (0-8); BASOPHILS ABSOLUTE MAN 0.05 K/mm3 (0.00-0.23); BASOPHILS PERCENT MAN 1 % (0-2); EOSINOPHILS PERCENT MAN 0 % (0-6); LYMPHOCYTES ABSOLUTE MAN 0.48 K/mm3 (0.84-5.20); LYMPHOCYTES PERCENT MAN 9 % (21-46); MONOCYTES ABSOLUTE MAN 0.59 K/mm3 (0.16-1.47); MONOCYTES PERCENT MAN 11 % (4-13); NEUTROPHILS ABSOLUTE MAN 4.25 K/mm3 (1.96-9.15); SEG NEUTROPHILS PERCENT MAN 64 % (41-73); TOTAL CELLS COUNTED 100
--- NOTE | 2022-04-06 05:48 | NUR ---
SHIFT SUMMARY A/Ox4 t/o shift. Flu +., CIWA 4. Abdominal pain noted t/o shift. Maintains over 92% on RA, LS dim t/o R lobes and clear on L. Nonproductive cough during this shift, patient reports blood streaked sputum production at home. Episodes of SOB, no changes to tele, Spo2, CP. 2L NC placed for comfort. Sinus tach on tele 130-140's. N/V noted, medicated per emar. Multiple episodes of vomiting, no blood noted. Severe abdominal distention noted, firm/tender, hyperactive and tympanic bowel tones. Urinates into urinal, dark alhaji urine. Small skin abrasions to face from fall, bruise on L shoulder, and 3 skin abrasions that patient admits he picks when he's anxious. Scleral yellowing noted. Mag 1.5 this morning, notified and orders were received. Episode where while standing to urinate, patient almost fell. Bed alarm on, bed in low position and instructed to call. Will report to dayshift RN.
--- NOTE | 2022-04-06 18:24 | NUR ---
SHIFT SUMMARY: NO ACUTE CHANGES TO PT CONDITION T/OUT SHIFT. PT A&Ox4, ANSWERS QUESTIONS APPROPRIATELY, COOPERATIVE W/CARE. PT C/O HEADACHE, STATES IT IS R/TO HIS FALL AT HOME, RECEIVING PRN MEDICATIONS. NO OTHER SIGNS OF WITHDRAWAL THAT WARRANT TREATMENT. PT HAS NC AT BEDSIDE W/2 L/MIN FLOW PRN, HAS DENIED SOB. SIN TACH CONTINUES ON MONITOR, RATE RANGING 110s-120s, PT DENIES CP. NO VOMITING THIS SHIFT, MEDICATED x1 FOR NAUSEA. PT SBA AT BEDSIDE TO VOID DARK LINDSEY/TEA COLORED URINE INTO URINAL. PT RESTING QUIETLY IN BED W/CALL LIGHT IN REACH. WILL CONTINUE TO MONITOR AND TREAT ACCORDINGLY UNTIL CHANGE OF SHIFT.
[2022-04-07] MEDS ORDERED: FOLI1 PO (10:18)
[2022-04-07] MEDS ORDERED: MULVITA PO (10:19)
[2022-04-07] MEDS ORDERED: OSEL75CA PO (10:19)
[2022-04-07] MEDS ORDERED: OXAYDO5 M1 PO (10:20)
[2022-04-07] MEDS ORDERED: B-1100 M1 PO (10:21)
--- NOTE | 2022-04-07 12:32 | NUR ---
PT DISCHARGE: PT HAS BEEN CLEARED FOR DISCHARGE. IV DC'd WNL. PT PROVIDED WITH DC INSTRUCTIONS AND PAPERWORK, V/U. PT PROVIDED WITH HANDWRITTEN PRESCRIPTION. PT STANDS AND AMBULATES TO W/C FOR ESCORT OUT, DEPARTS WITHOUT INCIDENT TO WAITING RIDE AT APPROX 1212.
== END 2022-04-07 12:05 | disposition home or self-care (01) | DRG 872 ==
LOC: ER 13:12 → PCU 21:29
PROVIDERS: Emergency Medicine; Nurse Practitioner Acute Care; ADMIT Internal Medicine
DX: A41.89 Other specified sepsis (principal); K92.0 Hematemesis; E87.2 Acidosis; K92.1 Melena; R65.20 Severe sepsis without septic shock; E83.42 Hypomagnesemia; Z79.899 Other long term (current) drug therapy; Z20.822 Contact with and (suspected) exposure to COVID-19; J10.1 Influenza due to other identified influenza virus with other respiratory manifestations; K70.30 Alcoholic cirrhosis of liver without ascites; K72.10 Chronic hepatic failure without coma; F10.20 Alcohol dependence, uncomplicated; D63.8 Anemia in other chronic diseases classified elsewhere; F17.290 Nicotine dependence, other tobacco product, uncomplicated
CPT/HCPCS: 0241U; 36415; 70450; 71045; 74177; 80053; 82140; 83605; 83615; 83690; 83735; 84145; 85014; 85018; 85025; 85610; 87040; 96374-59; 96375; 96376; 99285-25; A9270; J0696; J2270; J2405; J3010; J3411; J3475; J7030; J7040; J7042; Q9967

== ENCOUNTER 2022-04-15 14:21 | Inpatient (IN) | payer OTHER ==
[~2022-04-15] VITALS: Ht 185.4 cm; Wt 90.8 kg
[~2022-04-15 14:21] MED LIST changes: +FOLI1 PO; +OSEL75CA PO; +OXAYDO5 M1 PO
[2022-04-15 15:26] LABS: BASOPHILS ABSOLUTE AUTO 0.07 K/mm3 (0.00-0.23); BASOPHILS PERCENT AUTO 1 % (0-2); EOSINOPHILS ABSOLUTE AUTO 0.06 K/mm3 (0.00-0.68); EOSINOPHILS PERCENT AUTO 1 % (0-6); Hematocrit 31.7 % (37.0-53.0); Hemoglobin 10.7 g/dL (13.5-17.5); IMMATURE GRAN ABSOLUTE AUTO 0.04 K/mm3 (0.00-0.10); IMMATURE GRAN PERCENT AUTO 1 % (0-1); LYMPHOCYTES ABSOLUTE AUTO 1.12 K/mm3 (0.84-5.20); LYMPHOCYTES PERCENT AUTO 13 % (21-46); MONOCYTES PERCENT AUTO 8 % (4-13); Mean Corpuscular HGB 33.2 pg (26.0-34.0); Mean Corpuscular HGB Conc 33.8 g/dL (31.5-36.5); Mean Corpuscular Volume 98 fL (80-100); Mean Platelet Volume 10.4 fL (9.1-12.4); NEUTROPHILS PERCENT AUTO 76 % (41-73); Platelet Count 273 K/mm3 (150-400); RDW Coefficient Variation 13.9 % (11.7-14.2); RDW Standard Deviation 50.8 fL (35.1-46.3); Red Blood Cell Count 3.22 M/mm3 (4.30-5.90); White Blood Cell Count 8.39 K/mm3 (4.00-11.30)
[2022-04-15 15:58] LABS: Albumin/Globulin Ratio 0.4 (0.8-1.8); Bilirubin, Total 4.6 mg/dL (0.1-1.0); Bun/Creatinine Ratio 21.7 (12.0-20.0); Calcium, Blood 7.9 mg/dL (8.5-10.1); Creatinine, Blood 0.32 mg/dL (0.60-1.20); Globulin, Blood 5.2 g/dL (2.2-4.0); Total Protein, Blood 7.2 g/dL (6.4-8.2)
[2022-04-15 16:16] LABS: International Normalized Ratio 1.4; Prothrombin Time Results 14.4 Sec (9.7-11.5)
[2022-04-15] MEDS ORDERED: OMEP20ER PO (19:53)
[2022-04-15 22:16] LABS: Albumin, Blood 2.1 g/dL (3.4-5.0)
[2022-04-16 04:21] LABS: BASOPHILS ABSOLUTE AUTO 0.09 K/mm3 (0.00-0.23); BASOPHILS PERCENT AUTO 1 % (0-2); EOSINOPHILS ABSOLUTE AUTO 0.11 K/mm3 (0.00-0.68); EOSINOPHILS PERCENT AUTO 1 % (0-6); Hematocrit 30.3 % (37.0-53.0); Hemoglobin 10.1 g/dL (13.5-17.5); IMMATURE GRAN ABSOLUTE AUTO 0.05 K/mm3 (0.00-0.10); IMMATURE GRAN PERCENT AUTO 1 % (0-1); LYMPHOCYTES ABSOLUTE AUTO 1.05 K/mm3 (0.84-5.20); LYMPHOCYTES PERCENT AUTO 12 % (21-46); MONOCYTES ABSOLUTE AUTO 0.79 K/mm3 (0.16-1.47); MONOCYTES PERCENT AUTO 9 % (4-13); Mean Corpuscular HGB 33.2 pg (26.0-34.0); Mean Corpuscular HGB Conc 33.3 g/dL (31.5-36.5); Mean Corpuscular Volume 100 fL (80-100); Mean Platelet Volume 10.4 fL (9.1-12.4); NEUTROPHILS ABSOLUTE AUTO 7.01 K/mm3 (1.96-9.15); NEUTROPHILS PERCENT AUTO 77 % (41-73); Platelet Count 230 K/mm3 (150-400); RDW Coefficient Variation 14.2 % (11.7-14.2); RDW Standard Deviation 51.6 fL (35.1-46.3); Red Blood Cell Count 3.04 M/mm3 (4.30-5.90)
[2022-04-16 04:48] LABS: Albumin, Blood 1.8 g/dL (3.4-5.0); Albumin/Globulin Ratio 0.4 (0.8-1.8); Bilirubin, Total 4.3 mg/dL (0.1-1.0); Bun/Creatinine Ratio 15.3 (12.0-20.0); Calcium, Blood 7.6 mg/dL (8.5-10.1); Creatinine, Blood 0.39 mg/dL (0.60-1.20); Globulin, Blood 4.7 g/dL (2.2-4.0); Potassium, Blood 3.1 mmol/L (3.5-5.5); Total Protein, Blood 6.5 g/dL (6.4-8.2)
--- NOTE | 2022-04-16 05:09 | NUR ---
ADMIT NOTE AND SHIFT SUMMARY PT ARRIVED TO PCU FROM ED VIA ED WHEELCHAIR AT APPROX 2200. PT AMBULATED INDEPENDENTLY FROM WHEELCHAIR TO BED. PT A&OX4. SP02>92% ON RA. NSR W/ PVCS, VSS. PT C/O OF 8/10 ABD PAIN. ABD DISTENDED. PT MEDICATED PER EMAR. REFUSED HEATING PAD, WARM BLANKET, AND ICE. PT USED URINAL TO VOID. PT ORIENTED TO ROOM, CALL LIGHT. CALL LIGHT IN REACH.
--- NOTE | 2022-04-16 05:22 | NUR ---
PT UPDATE PT WITH POTASSIUM LEVEL OF 3.1. CALL PLACED TO MD TURCIOS. MD TURCIOS W/ ORDERS FOR KCL 40 IV X1.
[2022-04-16 10:32] LABS: Bun/Creatinine Ratio 16.1 (12.0-20.0); Calcium, Blood 7.9 mg/dL (8.5-10.1); Creatinine, Blood 0.43 mg/dL (0.60-1.20); Potassium, Blood 3.4 mmol/L (3.5-5.5)
--- NOTE | 2022-04-16 11:49 | NUR ---
Upon receiving a spiritual care referral, I visit patient. Patient is alert and oriented and has girlfriend, Minerva, bedside. They tell me about pt's medical history, list of his medical problems and their frustration with not getting answers in a timely manner and that are consistant. Patient shares that the cause of his issues are a failing body (and no mention of alcohol). He states that he is inspired and strengthened by his family especially his 5 y/o son. Pt also talks about his fears and mistrust concerning his medical issues and his care. I reinforce helpful ideas, encourage self-care, explore coping skills and resources and provide supportive gentle career guidance counselor. I will continue to remain available to patient and family.
--- NOTE | 2022-04-16 17:35 | NUR ---
SHIFT SUMMARY PT IS ALERT AND ORIENTED X4. HE REPORTS DRINKING A HALF GALLON OF VODKA PER DAY, FEELS VERY REGRETFUL OF DEPENDENCE. HIS POTASSIUM HAS INCREASED TODAY AND INFUSIONS ARE RUNNING. MEDICATED PER EMAR AND PAIN IS BEING MANAGED. IT HAS ONLY COME DOWN TO A RATING OF 5 ON A 0-10 SCALE. ABDOMEN IS VERY DISTENDED AND VERY TENDER/PAINFUL. ST 90'S W PVCS. SOFT BP. CLEAR LUNG SOUNDS ON RA. VOIDS IN URINAL, TEA COLORED THIS AM, HAS CLEARED TO LIGHT YELLOW AFTER DIURESING STARTED.
[2022-04-17 04:25] LABS: Albumin, Blood 1.7 g/dL (3.4-5.0); Albumin/Globulin Ratio 0.4 (0.8-1.8); Bilirubin, Total 3.9 mg/dL (0.1-1.0); Bun/Creatinine Ratio 13.6 (12.0-20.0); Calcium, Blood 7.3 mg/dL (8.5-10.1); Creatinine, Blood 0.44 mg/dL (0.60-1.20); Globulin, Blood 4.2 g/dL (2.2-4.0); Potassium, Blood 3.3 mmol/L (3.5-5.5); Total Protein, Blood 5.9 g/dL (6.4-8.2)
--- NOTE | 2022-04-17 05:55 | NUR ---
Overnight went well, pt pain 8/10 abdomen, otherwise stable, room air, will monitor JAMARCUS Dennis
[2022-04-17 07:30] LABS: BASOPHILS ABSOLUTE AUTO 0.04 K/mm3 (0.00-0.23); BASOPHILS PERCENT AUTO 1 % (0-2); EOSINOPHILS ABSOLUTE AUTO 0.15 K/mm3 (0.00-0.68); EOSINOPHILS PERCENT AUTO 2 % (0-6); Hemoglobin 9.7 g/dL (13.5-17.5); IMMATURE GRAN ABSOLUTE AUTO 0.04 K/mm3 (0.00-0.10); IMMATURE GRAN PERCENT AUTO 1 % (0-1); LYMPHOCYTES PERCENT AUTO 14 % (21-46); MONOCYTES ABSOLUTE AUTO 0.61 K/mm3 (0.16-1.47); MONOCYTES PERCENT AUTO 8 % (4-13); Mean Corpuscular HGB 33.6 pg (26.0-34.0); Mean Corpuscular HGB Conc 33.4 g/dL (31.5-36.5); Mean Corpuscular Volume 100 fL (80-100); Mean Platelet Volume 11.5 fL (9.1-12.4); NEUTROPHILS ABSOLUTE AUTO 6.22 K/mm3 (1.96-9.15); NEUTROPHILS PERCENT AUTO 76 % (41-73); Platelet Count 195 K/mm3 (150-400); RDW Coefficient Variation 14.1 % (11.7-14.2); RDW Standard Deviation 52.1 fL (35.1-46.3); Red Blood Cell Count 2.89 M/mm3 (4.30-5.90); White Blood Cell Count 8.16 K/mm3 (4.00-11.30)
--- NOTE | 2022-04-17 09:18 | NUR ---
ASSUMPTION OF CARE RECEIVED REPORT AT 0715, ASSUMED CARE OF PATIENT. PATIENT A/O, SITTING UP IN BED STATING 7/10 PAIN IN ABD. LIGHTLY JAUNDICE IN COLOR, ABD SEVERELY DISTENDED, FIRM, TENDER WITH LIGHT TOUCH. HYPOACTIVE BT'S. PATIENT AMBULATING INDEPENDENTLY IN ROOM, URINATES INDEPENDENTLY IN BATHROOM. DENIED DIFFICULTIES OR ABNORMALITIES. STATED HUNGRY AND DID NOT LIKE BREAKFAST PROVIDED, OFFERED TO ORDER A DIFFERENT TRAY BUT PATIENT DECLINED STATING HE WOULD EAT WHAT HE LIKED ON THE TRAY. VITALS STABLE, ON RA. REVIEWED ORDERS, WILL TREAT PRESCRIBED. CALL LIGHT IN REACH.
--- NOTE | 2022-04-17 12:40 | NUR ---
PAIN MANAGEMENT PATIENT CONTINUES TO REPORT 9/10 PAIN IN ABD. NOTIFIED DR[address] LOYD VIA T/P. NO NEW ORDERS AT THIS TIME THE PHYSICIAN FEELS HE WAS ALREADY RECEIVING TOO HIGH OF A DOSE. NEW DOSE WAS GIVEN WITH NO EFFECT CURRENTLY. WILL EDUCATE PATIENT AND PROVIDE COMFORT WITH REPOSITIONING TOLERATED.
[2022-04-17] MEDS ORDERED: CIPR500 PO (17:00)
[2022-04-17] MEDS ORDERED: OXAYDO5 M1 PO (17:01)
[2022-04-17] MEDS ORDERED: B-1100 M1 PO (17:02)
[2022-04-17] MEDS ORDERED: VISBIOME 112.51 EACH PO (17:03)
--- NOTE | 2022-04-17 17:47 | NUR ---
DISCHARGE PATIENT MEDICATED FOR PAIN CHARTED. DISCUSSED WITH PHYSICIAN REGARDING PAIN MANAGEMENT AND TREATMENT PLAN. ABD U/S OBTAINED WITH NO ACUTE CHANGES. PATIENT WITH WRITTEN DISCHARGE INSTRUCTIONS GIVEN, NEW MEDICATIONS FAXED TO [facility] AND HAND WRITTEN ROXICODONE SCRIPT GIVEN TO PATIENT. CURRENTLY SETTING UP TRANSPORT HOME FOR PATIENT DUE TO PATIENT UNABLE TO FIND RIDE AT THIS TIME. WILL DISCHARGE HOME WHEN RIDE IS AVAILABLE.
== END 2022-04-17 18:50 | disposition home or self-care (01) | DRG 433 ==
LOC: ER 14:21 → PCU 20:32
PROVIDERS: Physician Assistant; Student in an Organized Health Care Education/Training Program; ADMIT Internal Medicine
PROC: HZ2ZZZZ Detoxification Services for Substance Abuse Treatment (ICD-10-PCS; principal; 2022-04-15)
DX: K70.31 Alcoholic cirrhosis of liver with ascites (principal); F84.0 Autistic disorder; K76.6 Portal hypertension; R00.0 Tachycardia, unspecified; F10.20 Alcohol dependence, uncomplicated; N18.9 Chronic kidney disease, unspecified; F17.210 Nicotine dependence, cigarettes, uncomplicated; E87.6 Hypokalemia; Z79.899 Other long term (current) drug therapy
CPT/HCPCS: 36415; 74177; 76705; 80048; 80053; 82040; 83605; 83615; 83690; 83735; 85025; 85610; 87040; 96374-59; 96375; 99285-25; A9270; J0696; J1170; J1650; J1885; J2270; J3010; J3480; J7040; J7050; Q9967

== ENCOUNTER 2022-04-23 11:23 | Day surgery (SDC) | payer OTHER ==
[~2022-04-23] VITALS: Ht 182.9 cm; Wt 90.1 kg
[~2022-04-23 11:23] MED LIST changes: +CIPR500 PO; +VISBIOME 112.51 EACH PO
== END 2022-04-23 13:32 | disposition home or self-care (01) ==
LOC: ORSCSDS 11:23
PROVIDERS: Internal Medicine Gastroenterology
PROC: 0DB68ZX Excision of Stomach, Via Natural or Artificial Opening Endoscopic, Diagnostic (ICD-10-PCS; principal; 2022-04-23 12:30)
PROC: 0DB98ZX Excision of Duodenum, Via Natural or Artificial Opening Endoscopic, Diagnostic (ICD-10-PCS; principal; 2022-04-23 12:30)
DX: K70.31 Alcoholic cirrhosis of liver with ascites (principal); K92.1 Melena; R10.84 Generalized abdominal pain; I10 Essential (primary) hypertension; K76.6 Portal hypertension; R16.1 Splenomegaly, not elsewhere classified; I85.00 Esophageal varices without bleeding; F17.210 Nicotine dependence, cigarettes, uncomplicated; Z79.899 Other long term (current) drug therapy
CPT/HCPCS: 88305; 88342; J2704; J7120

== ENCOUNTER 2022-08-02 23:14 | Inpatient (IN) | payer OTHER ==
[~2022-08-02] VITALS: Ht 185.4 cm; Wt 86.5 kg
[2022-08-02 23:47] LABS: BASOPHILS ABSOLUTE AUTO 0.08 K/mm3 (0.00-0.23); BASOPHILS PERCENT AUTO 1 % (0-2); EOSINOPHILS ABSOLUTE AUTO 0.22 K/mm3 (0.00-0.68); EOSINOPHILS PERCENT AUTO 4 % (0-6); Hematocrit 35.1 % (37.0-53.0); Hemoglobin 11.9 g/dL (13.5-17.5); IMMATURE GRAN ABSOLUTE AUTO 0.01 K/mm3 (0.00-0.10); IMMATURE GRAN PERCENT AUTO 0 % (0-1); LYMPHOCYTES ABSOLUTE AUTO 1.52 K/mm3 (0.84-5.20); LYMPHOCYTES PERCENT AUTO 25 % (21-46); MONOCYTES ABSOLUTE AUTO 0.42 K/mm3 (0.16-1.47); MONOCYTES PERCENT AUTO 7 % (4-13); Mean Corpuscular HGB 30.2 pg (26.0-34.0); Mean Corpuscular HGB Conc 33.9 g/dL (31.5-36.5); Mean Corpuscular Volume 89 fL (80-100); Mean Platelet Volume 11.8 fL (9.1-12.4); NEUTROPHILS ABSOLUTE AUTO 3.75 K/mm3 (1.96-9.15); NEUTROPHILS PERCENT AUTO 63 % (41-73); Platelet Count 115 K/mm3 (150-400); RDW Coefficient Variation 15.9 % (11.7-14.2); RDW Standard Deviation 51.9 fL (35.1-46.3); Red Blood Cell Count 3.94 M/mm3 (4.30-5.90)
[2022-08-03 00:03] LABS: Albumin/Globulin Ratio 0.6 (0.8-1.8); Bilirubin, Direct 1.9 mg/dL (0.0-0.3); Bilirubin, Indirect 1.1 mg/dL (0.1-0.7); Bun/Creatinine Ratio 15.6 (12.0-20.0); Creatinine, Blood 0.51 mg/dL (0.60-1.20); Globulin, Blood 4.9 g/dL (2.2-4.0); Potassium, Blood 3.4 mmol/L (3.5-5.5); Total Protein, Blood 7.9 g/dL (6.4-8.2)
[2022-08-03] MEDS ORDERED: Milk Thistle175 M1 PO (05:13)
[2022-08-03] MEDS ORDERED: TRENTAL PO (05:16)
[2022-08-03 07:06] LABS: BASOPHILS ABSOLUTE AUTO 0.06 K/mm3 (0.00-0.23); BASOPHILS PERCENT AUTO 2 % (0-2); EOSINOPHILS ABSOLUTE AUTO 0.19 K/mm3 (0.00-0.68); EOSINOPHILS PERCENT AUTO 5 % (0-6); Hematocrit 32.2 % (37.0-53.0); Hemoglobin 10.8 g/dL (13.5-17.5); IMMATURE GRAN PERCENT AUTO 0 % (0-1); LYMPHOCYTES ABSOLUTE AUTO 1.41 K/mm3 (0.84-5.20); LYMPHOCYTES PERCENT AUTO 39 % (21-46); MONOCYTES ABSOLUTE AUTO 0.24 K/mm3 (0.16-1.47); MONOCYTES PERCENT AUTO 7 % (4-13); Mean Corpuscular HGB 30.3 pg (26.0-34.0); Mean Corpuscular HGB Conc 33.5 g/dL (31.5-36.5); Mean Corpuscular Volume 90 fL (80-100); NEUTROPHILS ABSOLUTE AUTO 1.73 K/mm3 (1.96-9.15); NEUTROPHILS PERCENT AUTO 48 % (41-73); Platelet Count 105 K/mm3 (150-400); RDW Coefficient Variation 15.9 % (11.7-14.2); RDW Standard Deviation 53.1 fL (35.1-46.3); Red Blood Cell Count 3.56 M/mm3 (4.30-5.90); White Blood Cell Count 3.63 K/mm3 (4.00-11.30)
[2022-08-03 07:10] LABS: Albumin, Blood 2.7 g/dL (3.4-5.0); Albumin/Globulin Ratio 0.6 (0.8-1.8); Bilirubin, Total 2.5 mg/dL (0.1-1.0); Bun/Creatinine Ratio 15.1 (12.0-20.0); Calcium, Blood 7.2 mg/dL (8.5-10.1); Creatinine, Blood 0.46 mg/dL (0.60-1.20); Globulin, Blood 4.8 g/dL (2.2-4.0); Potassium, Blood 3.3 mmol/L (3.5-5.5); Total Protein, Blood 7.5 g/dL (6.4-8.2)
--- NOTE | 2022-08-03 07:30 | NUR ---
T/F AND SUMMARY: REPORT RECIEVED FROM PAWAN (ANIMAL NUTRITIONIST) AT 0440 AND PT T/F VIA W/C TO ROOM 324 AT 0500. HE'S A/OX4, SPECIFIES NEEDS AND IS PLEASANT AND COOPERATIVE W/CARE. PT IS WEAK SO IS SBA OOB. URINAL PROVIDED AT BEDSIDE. HE HAS VERY HIGH ANXIETY AND ADMITS TO DIFFICULTY "LETTING GO OF CONTROL" SO ASKS LOTS OF QUESTIONS AND SEEMS FEARFUL RE:HEALTH/PROGNOSIS. REASSURANCE AND SUPPORT PROVIDED. SANDOSTATIN AND PROTONIX GTT'S COMMENCED. K-RIDER RUNNING CONCURRENTLY W/IV PIGGYBACK. ROCEPHIN RECIEVED. NEW IV PLACED TO R.FA AFTER PREVIOUS WAS NO LONGER PATENT. 1-2MG DILAUDID IV Q6P RX'D AND RECIEVED BECAUSE FENTANYL WAS INAFFECTIVE. O.5MG ATIVAN PROVIDED FOR HIGH ANXIETY AND CIWA OF 4. HE REFUSED ZOFRAN D/T NO NAUSEA. PT NSR AT 70'S BPM ON TELEMETRY. HE ADMITS TO BLOODY STOOLS, GUAIC PENDING AND UNABLE TO CALL GI CX D/T NO MD AVAILABLE UNTIL 07/14/22. HE REMAINS NPO EXCEPT ICE/MEDS. NO ACUTE CHANGES, VSS AND AFEBRILE. REPORT PROVIDED TO DAY RN.
--- NOTE | 2022-08-03 18:18 | NUR ---
SHIFT SUMMARY NO ACUTE CHANGES DURING SHIFT. PT ALERT AND ORIENTED, FOLLOWS COMMANDS. PT C/O SIGNIFICANT PAIN TO ABD. MEDICATED NUMEROUS TIMES WITH PRN MEDS DURING SHIFT. PT STATES PAIN IS STILL PRESENT DESPITE MEDS. PRN ATIVAN GIVEN DURING SHIFT PER CIWA. OCTREOTIDE AND PROTONIX INFUSING. KCL ADMINISTERED FOR ELECTROLYTE REPLACEMENT. CALL LIGHT WITHIN REACH.
--- NOTE | 2022-08-04 05:17 | NUR ---
SHIFT SUMMARY: PATIENT IS A&OX3. REPORTS FEELING LIKE HE HAS BEEN HERE FOR DAYS AND WOULD LIKE TO SLEEP. PATIENT IS OBSERVED SLEEPING MUCH OF THE SHIFT. LOW GRADE TEMP. OBSERVED, SOME BLANKETS REMOVED. PATIENT WOULD RATHER NOT HAVE TYLENOL. SCORES A 9,0 AND 8 ON CIWA SCALE, IV ATIVAN WAS GIVEN TWICE WITH GOOD EFFECT. PATIENT CONTINUES TO REPORT ABD. PAIN CONSTANT AT 8-9/10. PRN DILAUDID AND FENTANYL ARE ALTERNATED WITH FAIR EFFECT.
[2022-08-04 07:39] LABS: Hematocrit 32.2 % (37.0-53.0); Hemoglobin 10.5 g/dL (13.5-17.5)
[2022-08-04 08:12] LABS: Stool Occult Bld Immuno 1 Negative (NEGATIVE)
[2022-08-04 08:37] LABS: Albumin, Blood 2.6 g/dL (3.4-5.0); Albumin/Globulin Ratio 0.6 (0.8-1.8); Bilirubin, Total 5.2 mg/dL (0.1-1.0); Bun/Creatinine Ratio 10.4 (12.0-20.0); Calcium, Blood 8.2 mg/dL (8.5-10.1); Creatinine, Blood 0.58 mg/dL (0.60-1.20); Globulin, Blood 4.6 g/dL (2.2-4.0); Potassium, Blood 3.8 mmol/L (3.5-5.5); Total Protein, Blood 7.2 g/dL (6.4-8.2)
[2022-08-04] MEDS ORDERED: LACT10SY PO (12:40)
[2022-08-04] MEDS ORDERED: VISBIOME 112.51 EACH PO (12:41)
[2022-08-04] MEDS ORDERED: PROP10 PO (12:41)
[2022-08-04] MEDS ORDERED: OXYC5 PO (12:43)
== END 2022-08-04 12:58 | disposition home or self-care (01) | DRG 432 ==
LOC: ER 23:14 → MEDS 23:15 → ER 23:15 → MEDS 08-03 04:00 → EDBEDREQ 08-03 04:03 → EDBEDREQTM 08-03 04:03 → MEDS 08-03 05:00
PROVIDERS: Family Medicine; Physician Assistant; ADMIT Internal Medicine
DX: K70.30 Alcoholic cirrhosis of liver without ascites (principal); G92.8 Other toxic encephalopathy; K92.1 Melena; K70.40 Alcoholic hepatic failure without coma; E87.6 Hypokalemia; F10.10 Alcohol abuse, uncomplicated; F17.210 Nicotine dependence, cigarettes, uncomplicated; Z79.899 Other long term (current) drug therapy
CPT/HCPCS: 36415; 74176; 80048; 80053; 80076; 82140; 82274; 83690; 85014; 85018; 85025; 86850; 86900; 86901; 93005; 93010; 96374; 96375; 99285-25; A9270; C9113; G0480; J0696; J1170; J2354; J2405; J3010; J3411; J3480; J7030; J7050

== ENCOUNTER 2022-08-09 23:43 | Inpatient (IN) | payer OTHER ==
[~2022-08-09] VITALS: Ht 185.4 cm; Wt 83.7 kg
[~2022-08-09 23:43] MED LIST changes: +Enulose10 GM/15 M PO; +Milk Thistle175 M1 PO; +OXYC5 PO; +PROP10 PO; +TRENTAL PO
[2022-08-10 00:38] LABS: BASOPHILS PERCENT AUTO 1 % (0-2); EOSINOPHILS ABSOLUTE AUTO 0.28 K/mm3 (0.00-0.68); EOSINOPHILS PERCENT AUTO 3 % (0-6); Hematocrit 30.5 % (37.0-53.0); Hemoglobin 10.6 g/dL (13.5-17.5); IMMATURE GRAN ABSOLUTE AUTO 0.04 K/mm3 (0.00-0.10); IMMATURE GRAN PERCENT AUTO 1 % (0-1); LYMPHOCYTES ABSOLUTE AUTO 2.05 K/mm3 (0.84-5.20); LYMPHOCYTES PERCENT AUTO 23 % (21-46); MONOCYTES ABSOLUTE AUTO 0.69 K/mm3 (0.16-1.47); MONOCYTES PERCENT AUTO 8 % (4-13); Mean Corpuscular HGB 30.8 pg (26.0-34.0); Mean Corpuscular HGB Conc 34.8 g/dL (31.5-36.5); Mean Corpuscular Volume 89 fL (80-100); NEUTROPHILS ABSOLUTE AUTO 5.63 K/mm3 (1.96-9.15); NEUTROPHILS PERCENT AUTO 64 % (41-73); Platelet Count 96 K/mm3 (150-400); RDW Coefficient Variation 16.1 % (11.7-14.2); RDW Standard Deviation 51.8 fL (35.1-46.3); Red Blood Cell Count 3.44 M/mm3 (4.30-5.90); White Blood Cell Count 8.79 K/mm3 (4.00-11.30)
[2022-08-10 00:56] LABS: Albumin, Blood 2.7 g/dL (3.4-5.0); Albumin/Globulin Ratio 0.6 (0.8-1.8); Bilirubin, Direct 1.5 mg/dL (0.0-0.3); Bilirubin, Indirect 0.6 mg/dL (0.1-0.7); Bilirubin, Total 2.1 mg/dL (0.1-1.0); Calcium, Blood 7.6 mg/dL (8.5-10.1); Creatinine, Blood 0.45 mg/dL (0.60-1.20); Globulin, Blood 4.6 g/dL (2.2-4.0); Potassium, Blood 3.6 mmol/L (3.5-5.5); Total Protein, Blood 7.3 g/dL (6.4-8.2)
[2022-08-10 03:04] LABS: Bilirubin, Direct 1.4 mg/dL (0.0-0.3)
[2022-08-10 07:01] LABS: Hematocrit 30.2 % (37.0-53.0); Hemoglobin 9.9 g/dL (13.5-17.5)
--- NOTE | 2022-08-10 07:15 | NUR ---
ASSUMED CARE: PT RESTING IN BED, C/O ABDOMINAL PAIN. CURRENTLY NSR IN 90S ON RA. SANDOSTATIN, PROTONIX AND IVF RUNNING. NO FURTHER NEEDS AT THIS TIME.
--- NOTE | 2022-08-10 08:41 | NUR ---
CALL TO DR RODRIGUEZ'S OFFICE TO SEE IF DR RODRIGUEZ WOULD SEE PT. DR RODRIGUEZ UNAVAILABLE. OFFICE GAVE NUMBER OF DR JIMENEZ. CALL TO DR JIMENEZ WHO DECLINED AT THIS TIME. RADIO DIVISION LIEUTENANT AND DIRECT CARE STAFFER AWARE
--- NOTE | 2022-08-10 09:11 | NUR ---
PT WAS ANXIOUS AND AGITATED. PROTONIX GTT WAS BEEPIN AND PT WAS INTOLERANT OF THIS. ASKED STAFF IF THEY COULD FIX THE NOISE QUICKLY BECAUSE IT WAS "FREAKING ME OUT" LIBRIUM HAD ALREADY BEEN GIVEN BUT PT WAS C/O NAUSEA, CONTINUED AGITATION AND ANXIETY AND STATES HE HAS HALLUCINATIONS OF CATS. ATIVAN GIVEN.
[2022-08-10 12:39] LABS: Hematocrit 26.6 % (37.0-53.0); Hemoglobin 9.1 g/dL (13.5-17.5)
--- NOTE | 2022-08-10 15:50 | NUR ---
DR JIMENEZ CAME TO SEE PT AND INSTRUCTED TO KEEP NPO AND STATED HE WAS GOING TO CHECK WITH ANESTHESIA TO SEE IF THEY COULD DO PROCEDURE THIS AFTERNOON. PT ASKED IF HE COULD BRUSH HIS TEETH AND STARTED GAGGING. VOMITED 200CC YELLOW FLUID THAT WAS BLOOD TINGED. PT STATED THAT HE DID NOT WANT ANYONE TO KNOW HE HAD A DRINK YESTERDAY. DISCUSSED WITH PT HIS GOALS AND WHAT HE WANTS HIS FUTURE TO LOOK LIKE. HE STATED HE HAS A SPONSOR. ENCOURAGED HIM TO CALL THAT SPONSOR WHEN HE FEELS THE WAY HE DID YESTERDAY. DISCUSSED OPTIONS SUCH AA OR REHAB AND TOLD HIM THAT OFTEN PEOPLE NEED ENCOURAGEMENT AND ARE UNABLE TO STOP DRINKING WITHOUT HELP AND SUPPORT. PT VERBALIZED APPRECIATION FOR CONVERSATION.
--- NOTE | 2022-08-10 17:07 | NUR ---
08/10/22 1707 Ying Martinez 3-LEAD EKG REVIEWED WITH PHYSICIAN PRIOR TO START OF PROCEDURE. History, Chart, Medications and Allergies reviewed before start of procedure. MONITOR INTACT WITH CONTINUOUS PULSE OXIMETRY AND INTERMITTENT BP. See Anesthesia record WITH DR. LEON
--- NOTE | 2022-08-10 17:32 | NUR ---
DR JIMENEZ CAME TO BEDSIDE WITH ANESTHESIA TO PERFORM EGD WITH DAY SURGERY STAFF TO ASSIST. 5 BANDS WERE COMPLETED ON VARICES. DR JIMENEZ INSTRUCTS TO KEEP SANDOSTATIN AND PROTONIX RUNNING WELL IV FLUIDS. NPO EXCEPT MEDS AND ICE.
[2022-08-10 18:40] LABS: Hematocrit 27.7 % (37.0-53.0); Hemoglobin 9.1 g/dL (13.5-17.5)
[2022-08-11 01:35] LABS: BASOPHILS ABSOLUTE AUTO 0.01 K/mm3 (0.00-0.23); BASOPHILS PERCENT AUTO 0 % (0-2); EOSINOPHILS ABSOLUTE AUTO 0.08 K/mm3 (0.00-0.68); EOSINOPHILS PERCENT AUTO 3 % (0-6); Hemoglobin 9.1 g/dL (13.5-17.5); IMMATURE GRAN PERCENT AUTO 0 % (0-1); LYMPHOCYTES ABSOLUTE AUTO 0.66 K/mm3 (0.84-5.20); LYMPHOCYTES PERCENT AUTO 23 % (21-46); MONOCYTES ABSOLUTE AUTO 0.22 K/mm3 (0.16-1.47); MONOCYTES PERCENT AUTO 8 % (4-13); Mean Corpuscular HGB 30.4 pg (26.0-34.0); Mean Corpuscular HGB Conc 33.7 g/dL (31.5-36.5); Mean Corpuscular Volume 90 fL (80-100); Mean Platelet Volume 11.4 fL (9.1-12.4); NEUTROPHILS ABSOLUTE AUTO 1.94 K/mm3 (1.96-9.15); NEUTROPHILS PERCENT AUTO 67 % (41-73); Platelet Count 56 K/mm3 (150-400); RDW Standard Deviation 53.1 fL (35.1-46.3); Red Blood Cell Count 2.99 M/mm3 (4.30-5.90); White Blood Cell Count 2.91 K/mm3 (4.00-11.30)
[2022-08-11 01:56] LABS: Magnesium, Blood 1.2 mg/dL (1.6-2.4)
[2022-08-11 02:21] LABS: Albumin, Blood 2.5 g/dL (3.4-5.0); Albumin/Globulin Ratio 0.6 (0.8-1.8); Bilirubin, Total 3.5 mg/dL (0.1-1.0); Bun/Creatinine Ratio 20.9 (12.0-20.0); Creatinine, Blood 0.62 mg/dL (0.60-1.20); Globulin, Blood 3.9 g/dL (2.2-4.0); Percent Saturation 92.5 % (20.0-50.0); Potassium, Blood 3.8 mmol/L (3.5-5.5); Thyroid Stimulating Hormone 0.462 uIU/mL (0.360-4.800); Total Protein, Blood 6.4 g/dL (6.4-8.2)
--- NOTE | 2022-08-11 04:58 | NUR ---
SHIFT SUMMARY PATIENT SLEPT THROUGH MOST OF SHIFT. CIWA RANGED FROM [id number] WITH ATIVAN DUE TO PATIENT VOMITING/GAGGING. ONE EPISODE OF VOMITING AT BEGINNING OF SHIFT. NO BLOOD SEEN IN EMESIS. CONTINUED GAGGING WITH COUGHING. C/O ABD PN AND CHEST PAIN, REFUSED GI COCKTAIL. FENTANYL GIVEN FOR HEADACHE AND ABD PAIN. VSS. LABS SHOWED LOW MAGNESIUM AT 1.2, CALCIUM 8.0, AND ALBUMIN 2.5. ORDERS RECEIVED FROM DR. GARCIA FOR MAGNESIUM SULFATE 1G IV X 1- NO OTHER ORDERS RECEIVED.
--- NOTE | 2022-08-11 10:35 | NUR ---
Pt. is sominlent, but responds when I enter the room. SO is present. Pt. displays evidence of engagement and verbally welcomes my visit. SO leaves to go to work. Rapport is briefly established, but because of somnilence, this cost report clerk cuts th visit short. Pt. welcomed prayer. Prayed with Pt. Pt. verbalized gratitude for the spiritual care visit.
--- NOTE | 2022-08-11 18:16 | NUR ---
PT VERY CONFUSED AND AGITATED, CLIMBING OUT OF BED, PULLING ON IV LINES. ATIVAN 2MG IVP GIVEN PER PRIMARY RN.
--- NOTE | 2022-08-11 19:00 | NUR ---
SUMMARY PT A/O TO PERSON THIS EVENING. MORE CONFUSED THE DAY GOES ON. ATIVAN AND LIBRIUM FOR CIWA. THIS EVENING PT CONTINUALLY TRIES TO GET OOB AND IS UNSTEADY ON FEET. PLACED IN KATHRINE FOR PT SAFETY. ABD US DONE TODAY AND DR. BARNETT SAYS IT LOOKS OK AND IS OK FOR PT TO EAT. PT HAS NOT BEEN INTERESTED IN EATING. HAS SOME ABD PAIN AT TIMES. ABLE TO GET MAGIC MOUTHWASH DOWN THIS EVENING AND HAS NOT HAD PAIN SINCE. NO SIGN OF BLEEDING TODAY. NO EMESIS TODAY. REMAINS ON SANDOSTATIN AND PROTONIX. NO OTHER ACUTE CHANGES TODAY.
[2022-08-12 04:59] LABS: BASOPHILS ABSOLUTE AUTO 0.02 K/mm3 (0.00-0.23); BASOPHILS PERCENT AUTO 1 % (0-2); EOSINOPHILS ABSOLUTE AUTO 0.16 K/mm3 (0.00-0.68); EOSINOPHILS PERCENT AUTO 6 % (0-6); Hematocrit 27.4 % (37.0-53.0); Hemoglobin 9.5 g/dL (13.5-17.5); IMMATURE GRAN ABSOLUTE AUTO 0.01 K/mm3 (0.00-0.10); IMMATURE GRAN PERCENT AUTO 0 % (0-1); LYMPHOCYTES ABSOLUTE AUTO 0.86 K/mm3 (0.84-5.20); LYMPHOCYTES PERCENT AUTO 31 % (21-46); MONOCYTES ABSOLUTE AUTO 0.29 K/mm3 (0.16-1.47); MONOCYTES PERCENT AUTO 10 % (4-13); Mean Corpuscular HGB 30.8 pg (26.0-34.0); Mean Corpuscular HGB Conc 34.7 g/dL (31.5-36.5); Mean Corpuscular Volume 89 fL (80-100); Mean Platelet Volume 10.2 fL (9.1-12.4); NEUTROPHILS ABSOLUTE AUTO 1.46 K/mm3 (1.96-9.15); NEUTROPHILS PERCENT AUTO 52 % (41-73); Platelet Count 62 K/mm3 (150-400); RDW Coefficient Variation 15.9 % (11.7-14.2); RDW Standard Deviation 52.1 fL (35.1-46.3); Red Blood Cell Count 3.08 M/mm3 (4.30-5.90)
[2022-08-12 05:23] LABS: International Normalized Ratio 1.5; Prothrombin Time Results 15.3 Sec (9.7-11.5)
[2022-08-12 05:58] LABS: Albumin, Blood 2.7 g/dL (3.4-5.0); Albumin/Globulin Ratio 0.6 (0.8-1.8); Bilirubin, Total 3.9 mg/dL (0.1-1.0); Bun/Creatinine Ratio 17.7 (12.0-20.0); Calcium, Blood 8.6 mg/dL (8.5-10.1); Creatinine, Blood 0.62 mg/dL (0.60-1.20); Globulin, Blood 4.2 g/dL (2.2-4.0); Magnesium, Blood 1.8 mg/dL (1.6-2.4); Potassium, Blood 3.7 mmol/L (3.5-5.5); Total Protein, Blood 6.9 g/dL (6.4-8.2)
--- NOTE | 2022-08-12 07:00 | NUR ---
ASSUME CARE: I have assumed care of this patient.
--- NOTE | 2022-08-12 07:28 | NUR ---
SUMMARY PATIENT RESTLESS AND ANXIOUS AT BEGINNING OF NIGHT. PATIENT HAVING POOR COORDINATION AND DIFFICULTY TAKING PO LIBRIUM. ATIVAN GIVEN NEEDED FOR ELEVATED CIWA. PATIENT RESTING QUIETLY THIS AM. CONDOM CATH IN PLACE DUE TO BEING INCONT OF URINE, DRAINING WELL. VEST KATHRINE IN PLACE DUE TO PATIENT ATTEMPTING TO GET OUT OF BED WITHOUT ASSISTANCE, BEING CONFUSED AND VERY POOR COORDINATION MAKING HIM A FALL RISK. REMOTE MONITORING ALSO IN PLACE. AT TIMES WHEN CIWA ELEVATED PATIENT HAVING HALLUCINATIONS. NO NAUSEA, NO BM T/O NIGHT.
--- NOTE | 2022-08-12 17:38 | NUR ---
SHIFT SUMMARY: NEURO: pt is alert to voice and is oriented to self and family. [place]. CIWAs 8-11. 50mg of librium given this shift. CARDIAC: tachycardia into 130s and elevated BP. Home propranalol restarted. RESPIRATORY: CTA on RA GI/: tolerating sips of water with spoon. declines any PO foods from trays. No BM today. Mostly incontinent of urine with periods of continence. SKIN: flushed and intermittantly diaphoretic. no breakdown noted PSYCH/SOCIAL: SO at bedside and supportive this morning.
--- NOTE | 2022-08-13 00:19 | NUR ---
katywa scored 16 1mg ativan
[2022-08-13 04:13] LABS: BASOPHILS ABSOLUTE AUTO 0.06 K/mm3 (0.00-0.23); BASOPHILS PERCENT AUTO 1 % (0-2); EOSINOPHILS ABSOLUTE AUTO 0.26 K/mm3 (0.00-0.68); EOSINOPHILS PERCENT AUTO 6 % (0-6); Hematocrit 31.4 % (37.0-53.0); Hemoglobin 10.6 g/dL (13.5-17.5); IMMATURE GRAN ABSOLUTE AUTO 0.01 K/mm3 (0.00-0.10); IMMATURE GRAN PERCENT AUTO 0 % (0-1); LYMPHOCYTES ABSOLUTE AUTO 1.09 K/mm3 (0.84-5.20); LYMPHOCYTES PERCENT AUTO 24 % (21-46); MONOCYTES ABSOLUTE AUTO 0.45 K/mm3 (0.16-1.47); MONOCYTES PERCENT AUTO 10 % (4-13); Mean Corpuscular HGB 30.7 pg (26.0-34.0); Mean Corpuscular HGB Conc 33.8 g/dL (31.5-36.5); Mean Corpuscular Volume 91 fL (80-100); Mean Platelet Volume 11.1 fL (9.1-12.4); NEUTROPHILS ABSOLUTE AUTO 2.75 K/mm3 (1.96-9.15); NEUTROPHILS PERCENT AUTO 60 % (41-73); Platelet Count 75 K/mm3 (150-400); RDW Coefficient Variation 15.8 % (11.7-14.2); RDW Standard Deviation 52.8 fL (35.1-46.3); Red Blood Cell Count 3.45 M/mm3 (4.30-5.90); White Blood Cell Count 4.62 K/mm3 (4.00-11.30)
[2022-08-13 04:35] LABS: Calcium, Blood 8.4 mg/dL (8.5-10.1); Creatinine, Blood 0.64 mg/dL (0.60-1.20); Potassium, Blood 3.9 mmol/L (3.5-5.5)
--- NOTE | 2022-08-13 05:09 | NUR ---
END OF SHIFT SUMMARY PT IS WITHDRAWING SIGNIFICANTLY.CIWA HIGH 28 UN ABLE TO GIVE LIBRIUM WHEN GIVING THE PROPANOLOL AT START OF SHIFT PT CHOKED ON THE PILL AND WATER AND REFUSED TO TAKE ANY MORE WATER WHEN TRYING TO REASES HIS SWALLOW. PT HAS NOT SPOKEN MUCH MOSTLY WIMPERING. HE IS NOT REORENTABLE OR CONSOLABLE. ATIVAN HAS REDUCED HIS AGITATION RESTLESSNESS BUT PT HAS BEEN UNABLE TO ANSWER AND QUESTIONS OR FOLLOW COMANDS. WHEN GETTING BLOOD DRAW IT TOOK TWO PEOPLE TO HOLD HIS ARM DOWMN. HE HAS BEEN INCONTANATE AND WHEN TRING TO CHANGE PT SCREAMS NO HE IS PARANOID. WILL CONTINUE TO ASSES AND MONITOR WILL REPORT OFF TO ONCOMING RN
--- NOTE | 2022-08-13 07:17 | NUR ---
ASSUMED CARE OF PT AT 0700 PT IN ROOM SLEEPING. PANTOPRAZOLE RUNNING AT 10 MLS/HR, OCTRIO TIDE RUNNING AT 25 MLS/HR. KATHRINE IN PLACE AT THIS TIME. SEE ASSESSMENT FOR FUTHER INORMATION.
--- NOTE | 2022-08-13 10:02 | NUR ---
BEDSIDE SWALLOW NEGATIVE. PT UNABLE TO SWALLOW WATER AND HAS MINIMAL SWALLOW WHEN COMMANDED TO DO SO. HIGHLY SENSITIVE GAG REFLEX. PT ALSO APPEARS SEDATED BUT WILL OBEY COMMANDS IF TALKED TO LOUDLY. UNABLE TO GIVE PO MEDICATIONS AT THIS TIME D/T HIGH RISK OF ASPIRATION.
--- NOTE | 2022-08-13 17:29 | NUR ---
END OF SHIFT SUMMARY PT A/O X2. KNOWS SELF AND FIANCE. CONFUSION OTHERWISE. PT INTERMITENTLY TALKS, BUT MAKES NO SENSE. VITALS WNL. LUNG SOUNDS CLEAR BILATERALY THROUGHOUT WITH DIMINISHED BASES. CONDOM CATHETER DRAINING TO GRAVITY. URINE IS DARK YELLOW WITH FOUL ODOR. PANTOPROZOLE RUNNING AT 10 MLS/HR. SKIN ABRASIONS AND SCABBING FOUND THROUGHOUT ENTIRE BODY. PT UNABLE TO SWALLOW SMALL AMOUNTS OF WATER BY SPOON OR STRAW AT THIS TIME. PER DR OLIVEIRA WE WILL EVALUATE IN THE MORNING FOR PO MEDICATIONS. PT REMAINS NPO TODAY. PT JERRICA HARRINGTON IN TO VISIT TODAY AND TALKED WITH PT ADVOCATE REGARDING POSSIBLE PALLIATIVE CARE. PT SPOUSE IS OPEN TO VISITING WITH PALLIATIVE CARE TO INTRODUCE STAFF TO SPOUSE AND GET INTRODUCED BEFORE FUTURE VISITS.
--- NOTE | 2022-08-13 20:00 | NUR ---
ASSUMED CARE OF PT AT 1915. REPORT RECEIVED AT BEDSIDE. PT PRESENTS IN BED. VEST RESTRAINT IN PLACE SECONDARY TO IMPULSIVENESS AND CONFUSION SECONDARY TO ETOH WITHDRAWLS. PT WILL HOLD CONVERSATION BUT LOSE TANGENT WITH TOPIC EASILY. WILL REVIEW CHART AND PLAN OF CARE FOR THIS PT.
--- NOTE | 2022-08-14 | NUR ---
PT FREQUENTLY HAS BEEN ASKING FOR PAIN MEDICATIONS AND ATIVAN. PT ALSO STATES, "I CAN'T BELIEVE THAT I ." REORIENTED PT TO WHY HE IS IN THE HOSPITAL AND ETOH WITHDRAWALS. REASSURED PT THAT HE IS SAFE. HAVE MEDICATED PT WITH ATIVAN, AND WITH FENTANYL FOR COMPLAINT OF ABDOMINAL PAIN. PT BEING MONITORED BY REMOTE MONITORING VIA CAMERA FOR HIS SAFETY. CONDOM CATHETER REMAINS IN PLACE. PT DOES AT TIMES WILL GRAB AHOLD OF CATHETER. INSTRUCTED PT TO NOT DO THIS.
--- NOTE | 2022-08-14 04:45 | NUR ---
PT TRANSFERRED TO PCU ROOM. REPORT GIVEN TO JAMARCUS ARCOS. PT SLEEPING DURING TRANSFER. OF NOTE: EARLIER, PT WAS AWAKE. MODIFIED SWALLOW TRIAL DONE WITH THICKENED FLUID, AND APPLESAUCE. PT WAS ABLE TO SWALLOW WITHOUT COUGH WITH SOME COACHING TO HAVE CHIN TUCKED SOME. PT TOOK HIS LACTULOSE WITH INADVERTANT COUGH AND TOOK HIS LIBRIUM IN APPLESAUCE.
--- NOTE | 2022-08-14 05:30 | NUR ---
TRANSFER/ SHIFT SUMMARY ASSUMED CARE OF PT AT 0430 FROM ICU; REPORT FROM PATRIZIA. PT IS TALKING BUT NOT ORIENTED AND ONLY ASKS FOR PAIN MEDICATIONS. PT IS LETHARGIC AND NOT ATTEMPTING TO GET OUT OF BED. TELE SHOWS SR. SATURATIONS ABOVE 95% ON RA. PT SKIN IS JAUNDICED. PT UNABLE TO ROLL IN BED OR LIFT HEAD WITHOUT ASSISTANCE. PT HAS PROTONIX INFUSING. VITAL SIGNS STABLE. CONDOM CATHETER IN PLACE.
[2022-08-14 07:47] LABS: BASOPHILS ABSOLUTE AUTO 0.06 K/mm3 (0.00-0.23); BASOPHILS PERCENT AUTO 1 % (0-2); EOSINOPHILS PERCENT AUTO 4 % (0-6); Hemoglobin 10.3 g/dL (13.5-17.5); IMMATURE GRAN ABSOLUTE AUTO 0.02 K/mm3 (0.00-0.10); IMMATURE GRAN PERCENT AUTO 0 % (0-1); LYMPHOCYTES ABSOLUTE AUTO 1.28 K/mm3 (0.84-5.20); LYMPHOCYTES PERCENT AUTO 23 % (21-46); MONOCYTES ABSOLUTE AUTO 0.48 K/mm3 (0.16-1.47); MONOCYTES PERCENT AUTO 9 % (4-13); Mean Corpuscular HGB 29.9 pg (26.0-34.0); Mean Corpuscular HGB Conc 33.2 g/dL (31.5-36.5); Mean Corpuscular Volume 90 fL (80-100); NEUTROPHILS ABSOLUTE AUTO 3.52 K/mm3 (1.96-9.15); NEUTROPHILS PERCENT AUTO 63 % (41-73); Platelet Count 86 K/mm3 (150-400); RDW Coefficient Variation 16.1 % (11.7-14.2); RDW Standard Deviation 52.2 fL (35.1-46.3); Red Blood Cell Count 3.44 M/mm3 (4.30-5.90); White Blood Cell Count 5.56 K/mm3 (4.00-11.30)
[2022-08-14 07:58] LABS: Albumin, Blood 2.8 g/dL (3.4-5.0); Albumin/Globulin Ratio 0.6 (0.8-1.8); Bilirubin, Total 4.9 mg/dL (0.1-1.0); Bun/Creatinine Ratio 28.2 (12.0-20.0); Calcium, Blood 8.1 mg/dL (8.5-10.1); Creatinine, Blood 0.71 mg/dL (0.60-1.20); Globulin, Blood 4.8 g/dL (2.2-4.0); Potassium, Blood 3.2 mmol/L (3.5-5.5); Total Protein, Blood 7.6 g/dL (6.4-8.2)
[2022-08-14 07:59] LABS: International Normalized Ratio 1.52; Prothrombin Time Results 15.5 Sec (9.7-11.5)
--- NOTE | 2022-08-14 18:07 | NUR ---
SHIFT SUMMARY PT A/OX2 WIH SOME CONFUSION. PT REPORTS "HALLUCINATIONS" TOWARDS MID DAY AND END OF SHIFT. CIWA'S RANGED 6-9 THROUGHOUT SHIFT, 1 ML OF ATIVAN GIVEN. PT CONSISTENTLY REPORTING PAIN, REQUESTING "DILAUDID" FOR HIS PAIN. PT REORIENTED THAT HE IS RECIEVING FENTANYL FOR HIS PAIN. PT REMAINED IN KATHRINE DURING SHIFT, ATTEMPTED TO CLIMB OUT OF BED TO SENIOR COST ACCOUNTANT CUPS THAT HE DROPS. PT HAS CONDOM CATH IN PLACE. VSS THROUGHOUT SHIFT WITH O2 SATS IN THE 90'S WHILE ON RA. PO MEDS HELD DUE TO PT ALTERED MENTATION AND SWALLOWING, SEEMS TO DRIN FLUIDS FINE.
[2022-08-15 04:50] LABS: BASOPHILS ABSOLUTE AUTO 0.04 K/mm3 (0.00-0.23); BASOPHILS PERCENT AUTO 1 % (0-2); EOSINOPHILS ABSOLUTE AUTO 0.19 K/mm3 (0.00-0.68); EOSINOPHILS PERCENT AUTO 3 % (0-6); Hematocrit 30.9 % (37.0-53.0); Hemoglobin 10.3 g/dL (13.5-17.5); IMMATURE GRAN ABSOLUTE AUTO 0.03 K/mm3 (0.00-0.10); IMMATURE GRAN PERCENT AUTO 1 % (0-1); LYMPHOCYTES ABSOLUTE AUTO 1.27 K/mm3 (0.84-5.20); LYMPHOCYTES PERCENT AUTO 23 % (21-46); MONOCYTES ABSOLUTE AUTO 0.46 K/mm3 (0.16-1.47); MONOCYTES PERCENT AUTO 8 % (4-13); Mean Corpuscular HGB 30.3 pg (26.0-34.0); Mean Corpuscular HGB Conc 33.3 g/dL (31.5-36.5); Mean Corpuscular Volume 91 fL (80-100); Mean Platelet Volume 10.8 fL (9.1-12.4); NEUTROPHILS ABSOLUTE AUTO 3.59 K/mm3 (1.96-9.15); NEUTROPHILS PERCENT AUTO 64 % (41-73); Platelet Count 86 K/mm3 (150-400); RDW Coefficient Variation 15.9 % (11.7-14.2); RDW Standard Deviation 51.9 fL (35.1-46.3); White Blood Cell Count 5.58 K/mm3 (4.00-11.30)
[2022-08-15 05:05] LABS: Albumin, Blood 2.9 g/dL (3.4-5.0); Albumin/Globulin Ratio 0.6 (0.8-1.8); Bilirubin, Total 4.4 mg/dL (0.1-1.0); Bun/Creatinine Ratio 20.8 (12.0-20.0); Calcium, Blood 8.4 mg/dL (8.5-10.1); Creatinine, Blood 0.72 mg/dL (0.60-1.20); Globulin, Blood 4.8 g/dL (2.2-4.0); Potassium, Blood 3.3 mmol/L (3.5-5.5); Total Protein, Blood 7.7 g/dL (6.4-8.2)
--- NOTE | 2022-08-15 06:04 | NUR ---
SHIFT SUMMARY ASSUMED CARE OF PT AT 1900. PT IS A/OX3-4 WITH TIMES OF CONFUSION. PT STAES THAT HE IS SEEING CATS IN THE ROOM AND THAT THE DYE ARE RED BECAUSE HIS AMONIA LEVELS ARE HIGH. HEART SOUNDS REGULAR, LUNG SOUNDS CLEAR. PT SKIN IS STILL JAUNDICED. PT HAS CONDOM CATHETER T/O THE NIGHT. PT SLEPT VERY WELL, MEDICATED WITH LIBRIUM FOR CIWAH. PT IS EAGER TO GET A DIET ORDER. PT C/O PAIN EVERYWHERE, MEDICATED PER EMAR. NO ACUTE CHANGES, PT IS IMPROVING FROM TRANSFER YESTERDAY, PER THIS NURSE.
--- NOTE | 2022-08-15 19:16 | NUR ---
CHIP DRIER SUMMARY PT VERY ANXIOUS THROUGHOUT THE SHIFT. MEDICATED FOR PAIN WITH TRAMADOL X2. GIVEN MAALOX FOR MIDDLE EPIGASTRIC PAIN WITHOUT RELIEF. PT ABLE TO STAND FOR A FEW SECONDS WITH PT BUT STILL WEAK. KATHRINE LEFT IN PLACE DUE TO FALL RISK. PT CONFUSED AT TIMES BUT THEN ORIENTED. CONTINUES TO BE PAINFUL. REQUESTING MANY MEALS AND DRINKS THROUGHOUT THE SHIFT. CONDOM CATH REMOVED AND PT ABLE TO VOID IN URINAL.
[2022-08-16 04:50] LABS: Albumin, Blood 2.7 g/dL (3.4-5.0); Albumin/Globulin Ratio 0.6 (0.8-1.8); Bun/Creatinine Ratio 16.6 (12.0-20.0); Calcium, Blood 8.1 mg/dL (8.5-10.1); Creatinine, Blood 0.66 mg/dL (0.60-1.20); Globulin, Blood 4.3 g/dL (2.2-4.0); Potassium, Blood 3.6 mmol/L (3.5-5.5)
--- NOTE | 2022-08-16 06:27 | NUR ---
SHIFT SUMMARY ASSUMED CARE OF PT AT 1900. PT IS A/OX4, PT NOT IMPULSIVE. HEART SOUNDS REGULAR, LUNG SOUNDS CLEAR. PT C/O STOMACH PAIN AND ASKED FOR PAIN MEDICATION, WHEN HE WAS TOLD HE COULDNT HAVE ANYTHING HE ASKED FOR FOOD. WHEN ASKED IF THIS WOULD HURT HIS STOMACH MORE HE SAID THAT IT WOULDNT. WHILE ASKING IF PT WAS NEASEATED DURING COUNT INCLUDES THE [facility] ASSESSMENT, PT STATES YES. THIS NURSE ASKED IF THE SNACKS SHOULD BE TAKEN AWAY AND PT RECANTED HIS ANSWER. PT IS EAGER TO GET OUT OF HOSPITAL AND WANTS TO WORK WITH PT/OT SO THAT HE CAN GET A SHOWER AND WALK AGAIN.
[2022-08-16] MEDS ORDERED: CHLO25 PO (10:23)
[2022-08-16] MEDS ORDERED: METO25ER PO (10:25)
[2022-08-16] MEDS ORDERED: FOLI1 PO (10:26)
[2022-08-16] MEDS ORDERED: PANT40 PO (10:27)
--- NOTE | 2022-08-16 11:29 | NUR ---
DR OLIVEIRA NOTIFIED OF PT'S RECOMMENDATION OF PT DC TO SNF AND NOT HOME TODAY. RECEIVED TELEPHONE ORDER TO CANCEL DC TODAY.
--- NOTE | 2022-08-16 18:41 | NUR ---
NO ACUTE EVENTS T/O SHIFT. PT WORKED WITH PHYSICAL THERAPY TODAY IN ANTICIPATION OF DISCHARGE AND WAS DETERMINED TO BE TOO UNSTABLE ON HIS FEET TO SAFELY GO HOME TODAY. PT CONTINUES TO ASK FOR IV PAIN MEDICATION AND ATIVAN T/O THE SHIFT. CIWA SCORES 0. PT ABLE TO BRAIDED BAND ASSEMBLER HIS WALKER AND WALK FROM THE BED TO THE BATHROOM CARRYING THE WALKER OFF OF THE FLOOR, GAIT STEADY. PT ABLE TO AMBULATE TO RESTROOM WITH STANDBY ASSISTANCE FROM STAFF AND IS NO LONGER BEING INCONTINENT AND USING HIS CALL LIGHT TO CALL FOR NEEDS. BED ALARM ON FOR SAFETY, BUT PT HAS BEEN USING CALL LIGHT CONSISTENTLY T/O THE DAY. PT C/O NAUSEA AND PAIN T/O SHIFT, BUT WHEN RN ENTERS ROOM TO ASSESS PT, HE APPEARS TO BE SLEEPING. PT ASKING FOR MANY SNACKS AND DRINKS T/O SHIFT. PT'S SO AT BEDSIDE THIS AFTERNOON AND SPOKE WITH DR OLIVEIRA REGARDING D/C PLAN.
--- NOTE | 2022-08-17 01:00 | NUR ---
UPDATE PATIENT REMINDED TO USE CALL LIGHT IF HE NEEDS ANYTHING FROM STAFF FOR HIS SAFETY. BED ALARM ON FOR SAFETY. PATIENT QUESTIONING THIS RN ABOUT WHY THE BED ALARM IS ON, PATIENT EDUCATED ON IMPORTANCE OF BED ALARM D/T PATIENT NEEDING ASSISTANCE TO BE UP IN THE ROOM. AFTER THIS RN LEFT THE ROOM, PATIENT TOLD METAL CASTING TRADES WORKER THAT HE KNOWS HOW TO TURN OFF THE BED ALARM. THIS RN BACK INTO ROOM TO REEDUCATE PATIENT ON WHY THE BED ALARM IS IN PLACE. PATIENT AGREED AND STATED HE WILL USE CALL LIGHT.
--- NOTE | 2022-08-17 06:23 | NUR ---
UPDATE THIS RN INTO ROOM AFTER RECIEVING CALL FROM GOLF BALL INSPECTOR. GOLF BALL INSPECTOR STATED THAT PATIENT WAS ON THE FLOOR IN WATER. THIS RN INTO ROOM WELL BALL MILL MIXER AND ANOTHER RN. BED ALARM GOING OFF. CENTRAL MONITORING NOTIFIED GOLF BALL INSPECTOR AFTER PATIENT WAS ON THE FLOOR. PATIENT TO BE FOUND ON THE FLOOR, ON HIS RIGHT SIDE, SLIGHTLY BETWEEN BED AND ON FOOT OF BEDSIDE TABLE. PATIENT RESPONDING TO QUESTIONS, PUPILS REACTIVE, VITALS OBTAINED AND STABLE. PATIENT ABLE TO ASSIST STAFF WITH GETTING HIMSELF BACK INTO BED. HOSPITALIST CALLED WITH UPDATE, ORDER RECIEVED FOR KATHRINE. PATIENT TEARFUL ABOUT FALL BUT IS NOT REPORTING SIGNIFICANT PAIN.
--- NOTE | 2022-08-17 07:00 | NUR ---
SHIFT SUMMARY PATIENT ALERT, ORIENTED x2-3, ABLE TO ANSWER ALL QUESTIONS BUT IS SLOW TO RESPOND AT TIMES. VSS, PATIENT REMAINS ON RA. PATIENT THOUROUGHLY EDUCATED T/O NIGHT ABOUT SAFETY, BED ALARM IN PLACE, SEE PREVIOUS NOTES. KATHRINE IN PLACE DUE TO FALL. MEDICATED PER EMAR FOR GI DISCOMFORT AND PAIN. AT START OF SHIFT, PATIENT ABLE TO AMBULATE INTO BATHROOM WITH MINIMAL ASSIST FROM STAFF, PATIENT WAS NOT DIZZY, STEADY ON HIS FEET AND WAS ABLE TO CHANGE POSITIONS IN BED INDEPENDENTLY. SEE PREVIOUS NOTES REGARDING OTHER UPDATES DURING THE NIGHT. WILL REPORT TO DAYSHIFT RN.
--- NOTE | 2022-08-17 07:50 | NUR ---
INITIAL ASSESSMENT: Patient is resting comfortably in bed with eyes closed, he easily awakens with assessment. He is c/o pain in his back and neck, he rates this at an 8/10. I assisted him with repositioning. HRR, rate in the 70s. LS CTA, Biox WNL on RA. BT+, abd slightly tender to light palpation. VSS. Patient states he fell last night, when asked what happened he stated he fell asleep sitting on the edge of the bed. Bed alarm on for safety. [place] vest removed at this time. Patient denies other needs. Will continue to monitor.
[2022-08-17] MEDS ORDERED: CHLO25 PO (08:25)
--- NOTE | 2022-08-17 10:24 | NUR ---
Update: Patient was able to work with therapy this morning, he was able to walk in the room and in the hallway. He was concerned about being able to walk up stairs at home, therpy took him to their stairs and he did great. Patient states he is ready to go home. Call made to girlfriend, she is here to pick him up. Pt verbalized understanding of discharge instructions. He is going home with sig other via WC.
== END 2022-08-17 10:27 | disposition home health service (06) | DRG 432 ==
LOC: ER 23:43 → ICUE 08-10 03:09 → ICUW 08-10 03:09 → ICUE 08-10 03:09 → PCU 08-11 11:13
PROVIDERS: Internal Medicine; Internal Medicine Gastroenterology; Physician Assistant; ADMIT Internal Medicine
PROC: 06L38CZ Occlusion of Esophageal Vein with Extraluminal Device, Via Natural or Artificial Opening Endoscopic (ICD-10-PCS; 2022-08-10)
PROC: HZ2ZZZZ Detoxification Services for Substance Abuse Treatment (ICD-10-PCS; principal; 2022-08-11)
DX: K70.31 Alcoholic cirrhosis of liver with ascites (principal); G92.9 Unspecified toxic encephalopathy; I85.11 Secondary esophageal varices with bleeding; K76.6 Portal hypertension; D61.818 Other pancytopenia; F10.239 Alcohol dependence with withdrawal, unspecified; F17.210 Nicotine dependence, cigarettes, uncomplicated; K31.89 Other diseases of stomach and duodenum; E87.6 Hypokalemia; N18.9 Chronic kidney disease, unspecified; E83.42 Hypomagnesemia; Z78.1 Physical restraint status; Z71.41 Alcohol abuse counseling and surveillance of alcoholic; Z79.899 Other long term (current) drug therapy
CPT/HCPCS: 36415; 76700; 80048; 80053; 80076; 82105; 82140; 82248; 82728; 83540; 83550; 83690; 83735; 84443; 85014; 85018; 85025; 85610; 86850; 86900; 86901; 96365; 96366; 96368; 96375; 96376; 97110; 97116; 97161; 97165; 97530; 97535; 99285-25; A9270; C9113; G0378; G0480; J0171; J0696; J1170; J1430; J2060; J2354; J2405; J2550; J2704; J3010; J3411; J3475; J3480; J7030; J7042; J7050; J7120

== ENCOUNTER 2022-08-18 02:55 | Inpatient (IN) | payer OTHER ==
[~2022-08-18] VITALS: Ht 185.4 cm; Wt 86.5 kg
[~2022-08-18 02:55] MED LIST changes: +CHLO25 PO
[2022-08-18 04:38] LABS: BASOPHILS ABSOLUTE AUTO 0.03 K/mm3 (0.00-0.23); BASOPHILS PERCENT AUTO 1 % (0-2); EOSINOPHILS ABSOLUTE AUTO 0.08 K/mm3 (0.00-0.68); EOSINOPHILS PERCENT AUTO 2 % (0-6); Hematocrit 27.3 % (37.0-53.0); Hemoglobin 8.9 g/dL (13.5-17.5); IMMATURE GRAN ABSOLUTE AUTO 0.01 K/mm3 (0.00-0.10); IMMATURE GRAN PERCENT AUTO 0 % (0-1); LYMPHOCYTES ABSOLUTE AUTO 0.72 K/mm3 (0.84-5.20); LYMPHOCYTES PERCENT AUTO 21 % (21-46); MONOCYTES ABSOLUTE AUTO 0.45 K/mm3 (0.16-1.47); MONOCYTES PERCENT AUTO 13 % (4-13); Mean Corpuscular HGB 30.4 pg (26.0-34.0); Mean Corpuscular HGB Conc 32.6 g/dL (31.5-36.5); Mean Corpuscular Volume 93 fL (80-100); NEUTROPHILS ABSOLUTE AUTO 2.14 K/mm3 (1.96-9.15); NEUTROPHILS PERCENT AUTO 62 % (41-73); Platelet Count 71 K/mm3 (150-400); RDW Coefficient Variation 16.7 % (11.7-14.2); RDW Standard Deviation 56.9 fL (35.1-46.3); Red Blood Cell Count 2.93 M/mm3 (4.30-5.90); White Blood Cell Count 3.43 K/mm3 (4.00-11.30)
[2022-08-18 04:57] LABS: Albumin, Blood 2.6 g/dL (3.4-5.0); Albumin/Globulin Ratio 0.6 (0.8-1.8); Bilirubin, Total 2.2 mg/dL (0.1-1.0); Bun/Creatinine Ratio 13.7 (12.0-20.0); Calcium, Blood 8.3 mg/dL (8.5-10.1); Creatinine, Blood 0.66 mg/dL (0.60-1.20); Globulin, Blood 4.3 g/dL (2.2-4.0); Potassium, Blood 3.8 mmol/L (3.5-5.5); Total Protein, Blood 6.9 g/dL (6.4-8.2)
[2022-08-18 11:10] LABS: Hematocrit 26.9 % (37.0-53.0); Hemoglobin 8.8 g/dL (13.5-17.5)
--- NOTE | 2022-08-18 11:25 | NUR ---
LATE ENTRY 0835: AFTER RECEIVING REPORT FROM SUPERVISOR FINISHING DEPARTMENT KEMAR, RECEIVED PT TO ROOM 327. PT MADE HIS WAY TO HIS BED, MADE COMFORTABLE, ORIENTED TO ROOM AND UNIT ROUTINE. IV MEDS INFUSING INTO 2 BILAT AC IV SITES. PT DROWSY THOUGH AROUSABLE. ADMIT COMPLETED.
--- NOTE | 2022-08-18 12:52 | NUR ---
Met with pt today, sat at bedside for some time, discussing his goals of care. He initially tells me he is planning to go to [place] "eventually" to try and get "treatment". However, when I asked him if he had ever been considered for liver transplant, he began to open up and tearfully admitted he is not a candidate due to continued drinking. After a discussion with both pt and his fiance, and it's apparent they have discussed the idea of hospice and/or comfort in the past, and they agree today that pt go home after this hospitalization with hospice in place. Dr. Flores would like pt to be seen by GI first, and review his recommendation prior to going home with hospice. Pt tells me he can "feel" that his body is dying. He reports always being in pain, and experiencing increased weakness and lethargy. He states the last time he drank was 10 days ago. Plan to continue with supportive visits and a warm hand-off to either palliative outpatient or hospice.
--- NOTE | 2022-08-18 13:18 | NUR ---
Spiritual Care Visit. Pt. is awake in bed and welcomes my visit. This cutting machine tender decorative had been with the Pt. previously in ICU. Pt. is unsettled because of his recent readmission and the pain he is experiencing. Pt. verbalized he is choosing comfort care, with the hope of being set up with [facility]. Listened empatheticially and established some rapport. Pt. displayed evidence of understanding, but also the desire to be able to capture moments with his 6 yr. old son at home. Prayed with Pt. Pt. verbalized gratitude for the spiritual care visit. Retrieved a business card from [facility] in Palliative care at the Pts. request.
[2022-08-18 16:24] LABS: Hematocrit 26.8 % (37.0-53.0); Hemoglobin 8.9 g/dL (13.5-17.5)
[2022-08-18 16:44] LABS: Percent Saturation 22.8 % (20.0-50.0)
--- NOTE | 2022-08-18 19:25 | NUR ---
SHIFT SUMMARY PT A&O X 4. VSS. MEDICATED PT FOR C/O PAIN & ANXIETY PER EMAR. MADE PT NPO FOR POSSIBLE GI INTERVENTION. H&H REMAINED STABLE THROUGHOUT SHIFT. BP STABLE.
[2022-08-18 22:04] LABS: Hemoglobin 8.6 g/dL (13.5-17.5)
[2022-08-19 04:17] LABS: BASOPHILS ABSOLUTE AUTO 0.05 K/mm3 (0.00-0.23); BASOPHILS PERCENT AUTO 2 % (0-2); EOSINOPHILS ABSOLUTE AUTO 0.11 K/mm3 (0.00-0.68); EOSINOPHILS PERCENT AUTO 4 % (0-6); Hemoglobin 8.6 g/dL (13.5-17.5); IMMATURE GRAN ABSOLUTE AUTO 0.01 K/mm3 (0.00-0.10); IMMATURE GRAN PERCENT AUTO 0 % (0-1); LYMPHOCYTES ABSOLUTE AUTO 0.82 K/mm3 (0.84-5.20); LYMPHOCYTES PERCENT AUTO 29 % (21-46); MONOCYTES ABSOLUTE AUTO 0.35 K/mm3 (0.16-1.47); MONOCYTES PERCENT AUTO 12 % (4-13); Mean Corpuscular HGB 30.5 pg (26.0-34.0); Mean Corpuscular HGB Conc 33.1 g/dL (31.5-36.5); Mean Corpuscular Volume 92 fL (80-100); NEUTROPHILS ABSOLUTE AUTO 1.51 K/mm3 (1.96-9.15); NEUTROPHILS PERCENT AUTO 53 % (41-73); Platelet Count 83 K/mm3 (150-400); RDW Coefficient Variation 16.3 % (11.7-14.2); RDW Standard Deviation 55.8 fL (35.1-46.3); Red Blood Cell Count 2.82 M/mm3 (4.30-5.90); White Blood Cell Count 2.85 K/mm3 (4.00-11.30)
[2022-08-19 04:34] LABS: Albumin, Blood 2.5 g/dL (3.4-5.0); Albumin/Globulin Ratio 0.6 (0.8-1.8); Bilirubin, Total 3.3 mg/dL (0.1-1.0); Bun/Creatinine Ratio 11.8 (12.0-20.0); Calcium, Blood 8.1 mg/dL (8.5-10.1); Creatinine, Blood 0.6 mg/dL (0.60-1.20); Globulin, Blood 4.2 g/dL (2.2-4.0); Potassium, Blood 4.1 mmol/L (3.5-5.5); Total Protein, Blood 6.7 g/dL (6.4-8.2)
--- NOTE | 2022-08-19 04:45 | NUR ---
SHIFT SUMMARY PT C/O SEVERE PAIN T/O SHIFT, FREQUENTLY REQUESTING PAIN MEDICATION. ADMINISTERED ORDERED PRN PAIN MEDICATION PER EMAR. PT IS NPO AND FREQUENTLY REQUESTING FOOD AND DRINKS, STATES HE ONLY HAD ONE MEAL IN 12 DAYS. CONSULT WAS REQUESTED TO [facility] FOR GI CONSULT. CONTINUOUS IV PROTONIX AND SANDOSTATIN INFUSING. PT C/O NAUSEA, ADMINISTERED PRN ZOFRAN. NO ACUTE CHANGES, VSS.
[2022-08-19 12:38] LABS: Influenza A, PCR NEGATIVE (NEGATIVE); Influenza B, PCR NEGATIVE (NEGATIVE); Resp Syncytial Virus, PCR NEGATIVE (NEGATIVE); SARS-Cov-2 (COVID-19) PCR, MMC NEGATIVE (NEGATIVE)
--- NOTE | 2022-08-19 16:16 | NUR ---
Met with pt at bedside today. He reports his pain is controlled, he's sleeping better, and feeling optimistic today. He has had medication changes including starting Librium and Morphine. He states he still wants to pursue hospice when he goes home, as his liver is not expected to improve and he has been diagnosed as "end stage liver disease. He is experiencing hallucinations of cats "everywhere" in his room, but does recognize these are illusions. No changes to Palliative plan at this time.
--- NOTE | 2022-08-19 19:12 | NUR ---
SHFIT SUMMARY PT IS A&O BUT APPEARS FORGETFUL AT TIMES. PT AMBULATED IN HARDING SEVERAL TIMES TODAY. PT WAS SCHEDULED TO HAVE ENDOSCOPOY TODAY BUT WAS POSTPONED. PT STATED ANXIETY OVER PROCEDURE. PT C/O PAIN AND WAS MEDICATED PER EMAR WITH GOOD EFFICACY. BED IN LOWEST POSITION AND CALL LIGHT IN REACH.
--- NOTE | 2022-08-19 20:49 | NUR ---
DC'D SARA IV, TIP INTACT.
--- NOTE | 2022-08-20 04:35 | NUR ---
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 PT MAKING INCONGRUENT/NONSENSICAL STATEMENTS AND REQUIRES REORIENTING TO SITUATION AT TIMES. PT REQUESTING PAIN MEDS AT THE BEGINNING OF PLANT MAINTENANCE ENGINEER. GAVE NIGHT MEDS, 2MG MORPHINE, AND NEW NICOTINE PATCH AT 1999. THE SARA IV WAS SWOLLEN; REMOVED AND NEW IV STARTED. PT HAS TWO PERIPHERAL IV'S RUNNING CONTINUOUS IV MEDS; PROTONIX DRIP AND SANDOSTATIN. RESPONDED TO A CALL LIGHT AT APROX 0130; FOUND PT ON EDGE OF BED W/BLOOD ON THE FLOOR FROM THE BATHRROM TO THE BEDSIDE. FOUND BOTH PERIPHERAL IV TUBING BROKEN AND BLOOD COMING FROM BOTH. FLUSHED AND CLAMPED THE TUBING. PT REPORTED HE HAD GONE TO THE BATHROOM AND ACCIDENTALLY SHUT THE LIGHT OFF; HE SAID HE GOD SCARED AND HAD FLASHBACKS OF A TRAUMATIC CHILDHOOD EVENT. HE WAS DISORIENTED AND FELT TRAPPED/TANGLED BY THE IV TUBING; HE BROKE THE TUBING TO GET FREE. THE PT REPORTED BEING SCARED BY THE EVENT AND CONTINUED TO ASK WHAT/WHY IT HAPPENED. AFTER THE INCIDENT I TALKED W/PT ABOUT SAFETY AND SET THE BED ALARM FOR THE REMAINDER OF THE SHIFT. PT C/O PAIN; APPEARED LETHARGIC AND SEDATED. PT WAS ABLE TO RETURN TO SLEEP. NO ADDITIONAL PAIN/PRN MEDS WERE ADMINISTERED T/O THE NIGHT. PT HAS BEEN NPO SINCE MIDIHT F/ENDOSCOPY PROCEDURE IN THE AM. PT CONTINUES TO ASK FOR FOOD/BEVERAGE AND TO GO OUTSIDE TO SMOKE; REORIENT THE PT TO THE PLAN OF CARE. CALL LIGHT IN REACH.
[2022-08-20 06:01] LABS: Hematocrit 26.7 % (37.0-53.0); Hemoglobin 9.1 g/dL (13.5-17.5); Mean Corpuscular HGB 31.4 pg (26.0-34.0); Mean Corpuscular HGB Conc 34.1 g/dL (31.5-36.5); Mean Corpuscular Volume 92 fL (80-100); Platelet Count 123 K/mm3 (150-400); RDW Coefficient Variation 16.2 % (11.7-14.2); RDW Standard Deviation 55.3 fL (35.1-46.3); White Blood Cell Count 3.09 K/mm3 (4.00-11.30)
[2022-08-20 06:34] LABS: Albumin, Blood 2.7 g/dL (3.4-5.0); Albumin/Globulin Ratio 0.6 (0.8-1.8); Bilirubin, Total 3.4 mg/dL (0.1-1.0); Bun/Creatinine Ratio 7.8 (12.0-20.0); Calcium, Blood 8.6 mg/dL (8.5-10.1); Creatinine, Blood 0.64 mg/dL (0.60-1.20); Globulin, Blood 4.4 g/dL (2.2-4.0); Potassium, Blood 3.8 mmol/L (3.5-5.5); Total Protein, Blood 7.1 g/dL (6.4-8.2)
--- NOTE | 2022-08-20 15:16 | NUR ---
FROM MEDICAL FLOOR TO [facility] ADMISSION STARTED TO UNIT.
--- NOTE | 2022-08-20 15:25 | NUR ---
08/20/22 1525 Alvin Gilbert See Anesthesia record DR URBAN
--- NOTE | 2022-08-20 18:11 | NUR ---
SHIFT SUMMARY PT ALERT BUT APPEARED DISSORIENTED THIS MORNING. PT NEEDED TO BE REORIENTED ON RECENT EVENT, SUCH TALKING WITH THE DOCTOR. PT TAKEN FOR SCOPE PROCUDRE AND WAS EMOTIONAL UPON RETURN. PT HAS BEEN ADVANCED TO FULL LIQUIED DIET BUT STILL ASKS FOR SANDWHICHES. PT HAS BEEN INDEPENDENT IN ROOM FOR THE EVENING. FAMILY AT BEDSIDE. BED IN LOWEST POSITION AND CALL LIGHT IN REACH.
--- NOTE | 2022-08-21 04:25 | NUR ---
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 PATIENT REORIENTED TO HIS PLAN OF CARE AND FULL LIQUID DIET STATUS; PT CONT TO ASK FOR FOOD AND EXPRESSED DISIRE TO GO "OUTSIDE" OR TO HAVE A "CIGARETTE" PT SLEPT MORE T/O THE NIGHT THAN THE PREVIOUS NIGHT. PT HAS EXPRESSED A DISIRE TO "GET BETTER" AND TAKE CARE OF HIS SON; AT TIMES BECOMING EMOTIONAL. CALL LIGHT IN REACH.
[2022-08-21] MEDS ORDERED: Norco 5-325 Ta1 EACH PO (13:57)
[2022-08-21] MEDS ORDERED: MIRT30ST SL (13:59)
[2022-08-21] MEDS ORDERED: NICODERM CQ1 EA11 TOP (14:00)
[2022-08-21] MEDS ORDERED: Carafate1 GM/10 ML PO (14:39)
[2022-08-21] MEDS ORDERED: THEREMS MULTI400 MCG PO (14:41)
--- NOTE | 2022-08-21 15:32 | NUR ---
DISCHARGE SUMMARY DISCHARGE INSTUCTIONS AND EDUCATION REVIEWED WITH PT. DC'D IV AND CATHETER TIP IN PLACE. PT TOLERATED WELL. RX FAXED TO [facility] AND PERSCRIPTION SLIP GIVEN TO PT. PT DC'D HOME WITH SIGNIFICANT OTHER. PT VERBALIZED UNDERSTANDING AND STATED NO QUESTIONS OR CONCERNS.
[2022-08-22] MEDS ORDERED: FOLI1 PO (16:27)
[2022-08-22] MEDS ORDERED: METO25ER PO (16:28)
[2022-08-22] MEDS ORDERED: LACT10SY PO (16:28)
[2022-08-22] MEDS ORDERED: Nicoderm Cq1 EAC1 TOP (16:29)
[2022-08-22] MEDS ORDERED: PANT40 PO (16:29)
[2022-08-22] MEDS ORDERED: ONE DAILY ESS400 MCG PO (16:29)
[2022-08-22] MEDS ORDERED: SUCR1 PO (16:30)
== END 2022-08-21 15:31 | disposition home or self-care (01) | DRG 432 ==
LOC: ER 02:55 → MEDS 02:56
PROVIDERS: Emergency Medicine; Internal Medicine; Student in an Organized Health Care Education/Training Program; ADMIT Internal Medicine
PROC: 0DJ08ZZ Inspection of Upper Intestinal Tract, Via Natural or Artificial Opening Endoscopic (ICD-10-PCS; principal; 2022-08-20 14:00)
DX: K70.31 Alcoholic cirrhosis of liver with ascites (principal); I85.11 Secondary esophageal varices with bleeding; K72.00 Acute and subacute hepatic failure without coma; K22.11 Ulcer of esophagus with bleeding; K76.6 Portal hypertension; I85.10 Secondary esophageal varices without bleeding; Z51.5 Encounter for palliative care; Z20.822 Contact with and (suspected) exposure to COVID-19; E88.09 Other disorders of plasma-protein metabolism, not elsewhere classified; D50.0 Iron deficiency anemia secondary to blood loss (chronic); N18.9 Chronic kidney disease, unspecified; D63.1 Anemia in chronic kidney disease; F17.210 Nicotine dependence, cigarettes, uncomplicated; Z71.6 Tobacco abuse counseling; Z79.899 Other long term (current) drug therapy
CPT/HCPCS: 0241U; 36415; 74176; 80053; 82140; 82728; 83540; 83550; 83690; 85014; 85018; 85025; 85027; 86850; 86900; 86901; 96375; 96376; A9270; C9113; G0378; J0696; J1170; J2060; J2270; J2354; J2405; J2704; J3010; J7030; J7050; J7120

== ENCOUNTER 2022-08-22 08:29 | Observation (INO) | payer OTHER ==
[~2022-08-22] VITALS: Ht 185.4 cm; Wt 90.7 kg
[~2022-08-22 08:29] MED LIST changes: +Carafate1 GM/10 ML PO; +MIRT30ST SL; +NICODERM CQ1 EA11 TOP; +Norco 5-325 Ta1 EACH PO; +THEREMS MULTI400 MCG PO
[2022-08-22 09:22] LABS: BASOPHILS ABSOLUTE AUTO 0.07 K/mm3 (0.00-0.23); BASOPHILS PERCENT AUTO 2 % (0-2); EOSINOPHILS ABSOLUTE AUTO 0.14 K/mm3 (0.00-0.68); EOSINOPHILS PERCENT AUTO 4 % (0-6); Hematocrit 26.8 % (37.0-53.0); Hemoglobin 8.9 g/dL (13.5-17.5); IMMATURE GRAN ABSOLUTE AUTO 0.01 K/mm3 (0.00-0.10); IMMATURE GRAN PERCENT AUTO 0 % (0-1); LYMPHOCYTES ABSOLUTE AUTO 0.79 K/mm3 (0.84-5.20); LYMPHOCYTES PERCENT AUTO 21 % (21-46); MONOCYTES ABSOLUTE AUTO 0.39 K/mm3 (0.16-1.47); MONOCYTES PERCENT AUTO 10 % (4-13); Mean Corpuscular HGB Conc 33.2 g/dL (31.5-36.5); Mean Corpuscular Volume 93 fL (80-100); Mean Platelet Volume 11.2 fL (9.1-12.4); NEUTROPHILS ABSOLUTE AUTO 2.35 K/mm3 (1.96-9.15); NEUTROPHILS PERCENT AUTO 63 % (41-73); Platelet Count 119 K/mm3 (150-400); RDW Coefficient Variation 15.9 % (11.7-14.2); RDW Standard Deviation 54.2 fL (35.1-46.3); Red Blood Cell Count 2.87 M/mm3 (4.30-5.90); White Blood Cell Count 3.75 K/mm3 (4.00-11.30)
[2022-08-22 09:29] LABS: Albumin, Blood 2.8 g/dL (3.4-5.0); Albumin/Globulin Ratio 0.6 (0.8-1.8); Bilirubin, Total 2.3 mg/dL (0.1-1.0); Calcium, Blood 8.3 mg/dL (8.5-10.1); Creatinine, Blood 0.6 mg/dL (0.60-1.20); Globulin, Blood 4.4 g/dL (2.2-4.0); Potassium, Blood 3.1 mmol/L (3.5-5.5); Total Protein, Blood 7.2 g/dL (6.4-8.2)
[2022-08-22 10:00] LABS: Source, Urine Clean Catch
[2022-08-22 10:05] LABS: Appearance, Urine Clear (Clear); Bilirubin, Urine Neg (Neg); Blood, Urine Neg (Neg); Color, Urine Yellow (P-Yellow); Glucose Qualitative, Urine Neg (Neg); Ketones, Urine Neg (Neg); Leukocyte Esterase, Urine Neg (Neg); Nitrite, Urine Neg (Neg); Protein, Urine Neg (Neg); Specific Gravity, Urine 1.015 (1.003-1.022); Urobilinogen, Urine 2+ (Normal)
--- NOTE | 2022-08-22 14:58 | NUR ---
08/22/[address] Potter; see Anesthesia record.
--- NOTE | 2022-08-22 16:21 | NUR ---
CALLED DR RAMIREZ RE PT RETURN TO ROOM. OKAY D/C PROTONICS AND OCTREOTIDE/ MORPHINE WAS CUT BACK. OKAY START CLEAR LIQUID DIET
[2022-08-22] MEDS ORDERED: FOLI1 PO (16:27)
[2022-08-22] MEDS ORDERED: LACT10SY PO (16:28)
[2022-08-22] MEDS ORDERED: METO25ER PO (16:28)
[2022-08-22] MEDS ORDERED: PANT40 PO (16:29)
[2022-08-22] MEDS ORDERED: Nicoderm Cq1 EAC1 TOP (16:29)
[2022-08-22] MEDS ORDERED: ONE DAILY ESS400 MCG PO (16:29)
[2022-08-22] MEDS ORDERED: SUCR1 PO (16:30)
--- NOTE | 2022-08-22 17:57 | NUR ---
PT RESTING. COMPLAINS OF PAIN IN UPPER ABD. THEN FALLS ASLEEP. BARELY HOLD EYES OPEN WHEN TALKING TO ME. BP SOMEWHAT SOFT. STATES PAIN IS AT 7 AND BEST IT EVER GETS SINCE OCTOBER WHEN THIS STARTED IS A 6. GAVE HIM PROTONIX AND CARAFATE. 7UP AND WATER. WILL MONITOR. PRESENTLY SLEEPING. BED INLOW POSITION, CA LL LITE IN REACH, CALLS APPROP
[2022-08-23 05:28] LABS: Hematocrit 25.1 % (37.0-53.0); Hemoglobin 8.4 g/dL (13.5-17.5); Mean Corpuscular HGB 31.2 pg (26.0-34.0); Mean Corpuscular HGB Conc 33.5 g/dL (31.5-36.5); Mean Corpuscular Volume 93 fL (80-100); Mean Platelet Volume 11.1 fL (9.1-12.4); Platelet Count 115 K/mm3 (150-400); RDW Coefficient Variation 16.1 % (11.7-14.2); RDW Standard Deviation 55.2 fL (35.1-46.3); Red Blood Cell Count 2.69 M/mm3 (4.30-5.90); White Blood Cell Count 3.41 K/mm3 (4.00-11.30)
[2022-08-23 05:53] LABS: Albumin, Blood 2.6 g/dL (3.4-5.0); Albumin/Globulin Ratio 0.6 (0.8-1.8); Bilirubin, Total 2.2 mg/dL (0.1-1.0); Bun/Creatinine Ratio 5.6 (12.0-20.0); Calcium, Blood 7.9 mg/dL (8.5-10.1); Creatinine, Blood 0.53 mg/dL (0.60-1.20); Globulin, Blood 4.1 g/dL (2.2-4.0); Potassium, Blood 3.8 mmol/L (3.5-5.5); Total Protein, Blood 6.7 g/dL (6.4-8.2)
--- NOTE | 2022-08-23 06:22 | NUR ---
SHIFT SUMMARY PATIENT ALERT AND ORIENTED X3. MEDICATED PER EMAR FOR PAIN, PATIENT DESCRIBES PAIN A SHARP STABBING PAIN THAT RADIATES FROM THE LEFT SIDE OF HIS ABDOMEN AROUND HIS BACK. PATIENT HAD NO COMPLAINTS OF SHORTNESS OF BREATH. CALL LIGHT WITHIN REACH. REPORT GIVEN TO ONCOMING RN.
[2022-08-23] MEDS ORDERED: ROXICODONE5 MG PO (11:56)
--- NOTE | 2022-08-23 15:07 | NUR ---
DISCHARGE SUMMARY: PT DISCHARGED HOME TODAY. PT EDUCATED ON DC PLAN AND MEDICATIONS. ADVISED TO STOP NORCO AND DISCARD AND START OXYCODONE PER ORDER. ADVISED TO FOLLOW LOWFAT LOW SALT DIET AND TO TAKE PROTONIX PER ORDER TO PREVENT HEMATEMISIS. PT VU. PT ASSISTED WITH PACKING UP BELONGINGS. PT REFUSED WC TRANSPORT TO POV AND AMBULATED OUT.
--- NOTE | 2022-08-25 18:52 | NUR ---
Pt called Palliative Care this afternoon, requesting a hospice referral. After further discussion with pt and fiance, along with chart review, note pt does not likely meet criteria for hospice at this time. His PPS score is 60%, KPS is 70% Today pt stated, "I'm ready to go on hospice so I'm not a burden to my fiance anymore". I gently told him that is not a qualifying hospice diagnosis, and he states he is not suicidal, but this statement was concerning to me. Pt's kristian stated today she would like to see pt attend inpatient alcohol treatment, as his condition was listed at stable on discharge from the hospital. She and pt will follow up with mental health, and further explore treatment options.
== END 2022-08-23 12:35 | disposition home or self-care (01) ==
LOC: ER 08:29 → MEDS 08:30
PROVIDERS: Internal Medicine Gastroenterology; Student in an Organized Health Care Education/Training Program; ADMIT Internal Medicine
PROC: 06L38CZ Occlusion of Esophageal Vein with Extraluminal Device, Via Natural or Artificial Opening Endoscopic (ICD-10-PCS; principal; 2022-08-22 16:45)
DX: K22.11 Ulcer of esophagus with bleeding (principal); K76.6 Portal hypertension; K31.89 Other diseases of stomach and duodenum; F84.0 Autistic disorder; K70.30 Alcoholic cirrhosis of liver without ascites; N18.9 Chronic kidney disease, unspecified; F41.9 Anxiety disorder, unspecified; G47.00 Insomnia, unspecified; I12.9 Hypertensive chronic kidney disease with stage 1 through stage 4 chronic kidney disease, or unspecified chronic kidney disease
CPT/HCPCS: 36415; 71045; 80053; 81003; 82140; 83690; 85025; 85027; 86850; 86900; 86901; 96361; 96365; 96368; 96375; 96376; 99285-25; A9270; C9113; G0378; G0480; J1170; J2250; J2270; J2354; J2704; J3010; J7030; J7050; J7120

== ENCOUNTER 2022-09-02 13:55 | Inpatient (IN) | payer OTHER ==
[~2022-09-02] VITALS: Ht 172.7 cm; Wt 93.3 kg
[~2022-09-02 13:55] MED LIST changes: +LACT10SY PO; +ONE DAILY ESS400 MCG PO; +ROXICODONE5 MG PO; +SUCR1 PO
[2022-09-02] MEDS ORDERED: Norco 5-325 Ta1 EACH PO (13:57)
[2022-09-02] MEDS ORDERED: PANTOPRAZOLE SO40 M2 PO (13:57)
[2022-09-02 14:44] LABS: Source, Urine Clean Catch
[2022-09-02 14:51] LABS: BASOPHILS ABSOLUTE AUTO 0.06 K/mm3 (0.00-0.23); BASOPHILS PERCENT AUTO 1 % (0-2); EOSINOPHILS ABSOLUTE AUTO 0.19 K/mm3 (0.00-0.68); EOSINOPHILS PERCENT AUTO 4 % (0-6); Hematocrit 29.9 % (37.0-53.0); Hemoglobin 10.1 g/dL (13.5-17.5); IMMATURE GRAN ABSOLUTE AUTO 0.01 K/mm3 (0.00-0.10); IMMATURE GRAN PERCENT AUTO 0 % (0-1); LYMPHOCYTES ABSOLUTE AUTO 0.71 K/mm3 (0.84-5.20); LYMPHOCYTES PERCENT AUTO 16 % (21-46); MONOCYTES PERCENT AUTO 9 % (4-13); Mean Corpuscular HGB 30.8 pg (26.0-34.0); Mean Corpuscular HGB Conc 33.8 g/dL (31.5-36.5); Mean Corpuscular Volume 91 fL (80-100); Mean Platelet Volume 10.4 fL (9.1-12.4); NEUTROPHILS ABSOLUTE AUTO 3.03 K/mm3 (1.96-9.15); NEUTROPHILS PERCENT AUTO 69 % (41-73); Platelet Count 142 K/mm3 (150-400); RDW Coefficient Variation 16.3 % (11.7-14.2); Red Blood Cell Count 3.28 M/mm3 (4.30-5.90)
[2022-09-02 14:51] LABS: Appearance, Urine Clear (Clear); Bilirubin, Urine Neg (Neg); Blood, Urine Neg (Neg); Color, Urine Yellow (P-Yellow); Glucose Qualitative, Urine Neg (Neg); Ketones, Urine Neg (Neg); Leukocyte Esterase, Urine Neg (Neg); Nitrite, Urine Neg (Neg); Protein, Urine Neg (Neg); Specific Gravity, Urine 1.015 (1.003-1.022); Urobilinogen, Urine NORM (Normal)
[2022-09-02 15:07] LABS: Albumin, Blood 2.9 g/dL (3.4-5.0); Albumin/Globulin Ratio 0.6 (0.8-1.8); Bilirubin, Total 1.8 mg/dL (0.1-1.0); Bun/Creatinine Ratio 9.3 (12.0-20.0); Calcium, Blood 8.1 mg/dL (8.5-10.1); Creatinine, Blood 0.65 mg/dL (0.60-1.20); Globulin, Blood 4.7 g/dL (2.2-4.0); Potassium, Blood 3.8 mmol/L (3.5-5.5); Total Protein, Blood 7.6 g/dL (6.4-8.2)
[2022-09-02 20:26] LABS: Influenza A, PCR NEGATIVE (NEGATIVE); Influenza B, PCR NEGATIVE (NEGATIVE); Resp Syncytial Virus, PCR NEGATIVE (NEGATIVE); SARS-Cov-2 (COVID-19) PCR, MMC NEGATIVE (NEGATIVE)
[2022-09-03 00:28] LABS: International Normalized Ratio 1.39; Prothrombin Time Results 14.3 Sec (9.7-11.5)
--- NOTE | 2022-09-03 00:52 | NUR ---
ADMIT NOTE: REPORT RECEIVED FROM ANTONINO RICKETTS. PT ARRIVED TO ROOM 359 VIA GURNEY. PT ABLE TO TRANSFER TO BED BY SELF. PT CAME WITH CANE. PT A/O X 4, STANDBY ASSIST. PLEASANT AND COOPERATIVE. PT REPORTING 9/10 PAIN TO ABD AND HAS A HEADACHE. PT REPORTS TENDERNESS TO ABD "WHERE MY LIVER IS." PT GIVEN FENTANYL 50 MCG PER MD ORDER AND REPORTED MINIMAL PAIN RELIEF. PT REPORTING HE HAS SHARP PAINS IN HIS FEET, HE ALSO REPORTS ITCHING ALL OVER BODY. PT SLIGHTLY JAUNDICED ABD SLIGHTLY DISTENTED. TEMP 99.7 ALL OTHER VITALS WNL. PT ORIENTED TO CALL LIGHT, BED IN LOW POSITION AND BED ALARM SET.
[2022-09-03 03:21] LABS: BASOPHILS ABSOLUTE AUTO 0.05 K/mm3 (0.00-0.23); BASOPHILS PERCENT AUTO 2 % (0-2); EOSINOPHILS ABSOLUTE AUTO 0.12 K/mm3 (0.00-0.68); EOSINOPHILS PERCENT AUTO 4 % (0-6); Hematocrit 26.9 % (37.0-53.0); Hemoglobin 8.9 g/dL (13.5-17.5); IMMATURE GRAN ABSOLUTE AUTO 0.01 K/mm3 (0.00-0.10); IMMATURE GRAN PERCENT AUTO 0 % (0-1); LYMPHOCYTES ABSOLUTE AUTO 0.73 K/mm3 (0.84-5.20); LYMPHOCYTES PERCENT AUTO 24 % (21-46); MONOCYTES ABSOLUTE AUTO 0.28 K/mm3 (0.16-1.47); MONOCYTES PERCENT AUTO 9 % (4-13); Mean Corpuscular HGB 30.5 pg (26.0-34.0); Mean Corpuscular HGB Conc 33.1 g/dL (31.5-36.5); Mean Corpuscular Volume 92 fL (80-100); Mean Platelet Volume 10.4 fL (9.1-12.4); NEUTROPHILS PERCENT AUTO 62 % (41-73); Platelet Count 112 K/mm3 (150-400); RDW Coefficient Variation 16.5 % (11.7-14.2); Red Blood Cell Count 2.92 M/mm3 (4.30-5.90); White Blood Cell Count 3.09 K/mm3 (4.00-11.30)
[2022-09-03 03:21] LABS: U Amphetamine Screen Not Detected; U Barbituate Screen Not Detected; U Benzodiazapine Screen DETECTED; U Cocaine Screen Not Detected; U Methadone Screen Not Detected; U Methamphetamine Screen Not Detected; U Opiates Screen DETECTED; U Phencyclidine Screen Not Detected
[2022-09-03 03:22] LABS: U Buprenorphine Screen Not Detected; U Cannabinoids Screen Not Detected; U Oxycodone Screen Not Detected; U Propoxyphene Screen Not Detected
[2022-09-03 03:39] LABS: Albumin, Blood 2.5 g/dL (3.4-5.0); Albumin/Globulin Ratio 0.6 (0.8-1.8); Bilirubin, Total 1.9 mg/dL (0.1-1.0); Bun/Creatinine Ratio 9.3 (12.0-20.0); Calcium, Blood 7.7 mg/dL (8.5-10.1); Creatinine, Blood 0.65 mg/dL (0.60-1.20); Globulin, Blood 4.1 g/dL (2.2-4.0); Potassium, Blood 3.2 mmol/L (3.5-5.5); Total Protein, Blood 6.6 g/dL (6.4-8.2)
--- NOTE | 2022-09-03 09:50 | NUR ---
Spiritual Care - Pt. Request Pt. is awake in bed and welcomes my visit. Pt. is unsettled by his readmission and because he is feeling very cold. Pt. verbalizes that he is clean and sober. Listen empathetically with a calming presence. Re-establish rapport with a calming presence as Pt. is a re-admission. Pt. displays evidence of awareness and engagement. Pt. verbalizes gratitude for being able to be home for his sons burthday republican. Spouse arrives. Prayed for Pt. pt. and spouse verbalize gratidude for the spiritual care visit.
[2022-09-03 09:57] LABS: Bilirubin, Direct 1.1 mg/dL (0.0-0.3); Bilirubin, Indirect 0.5 mg/dL (0.1-0.7); Bilirubin, Total 1.6 mg/dL (0.1-1.0)
[2022-09-03 11:18] LABS: Hematocrit 24.7 % (37.0-53.0); Hemoglobin 8.3 g/dL (13.5-17.5)
[2022-09-03 16:25] LABS: Hematocrit 26.3 % (37.0-53.0); Hemoglobin 8.9 g/dL (13.5-17.5)
--- NOTE | 2022-09-03 19:38 | NUR ---
SHIFT SUMMARY PTN TO TRANSFER LAST SHIFT FOR UNKOWN SOURCE OF FEVER. 31-YEAR-OLD, A&O X4, INDEPENDENT, STANDBY ASSIST. TELE SR, HR 98. SECOND IV ACCESS PLACED THIS SHIFT FOR MULTIPLE ANTIBIOTICS. DIET INCREASED TO DIET TOLERATED. PTN CONTINUES TO HAVE FEVER, COVERED PER EMAR. PAIN IN BOTH HEAD AND ABDOMINAL AREA REPORTED. THIS SHIFT ABDOMINAL SHIFT COVERED BY PAIN MEDICAION PER EMAR, BUT HEADACHE CONTINUED. ORDERS CHANGED ACCORDINGLY. NICOTINE PATCH ADDED. CONTINUE TO MONITOR.
[2022-09-04 05:30] LABS: Adenovirus Not Detected (NOT DETECT); Bordetella pertussis Not Detected (NOT DETECT); Chlamydophila pneumoniae Not Detected (NOT DETECT); Coronavirus 229E Not Detected (NOT DETECT); Coronavirus HKU1 Not Detected (NOT DETECT); Coronavirus NL63 Not Detected (NOT DETECT); Coronavirus OC43 Not Detected (NOT DETECT); Human Metapneumovirus Not Detected (NOT DETECT); Human Rhinovirus/Enterovirus Not Detected (NOT DETECT); Influenza A/2009-H1 Not Detected (NOT DETECT); Influenza A/H1 Not Detected (NOT DETECT); Influenza A/H3 Not Detected (NOT DETECT); Influenza B Not Detected (NOT DETECT); Mycoplasma pneumoniae Not Detected (NOT DETECT); Parainfluenza Virus 1 Not Detected (NOT DETECT); Parainfluenza Virus 2 Not Detected (NOT DETECT); Parainfluenza Virus 3 Not Detected (NOT DETECT); Parainfluenza Virus 4 Not Detected (NOT DETECT); Respiratory Syncytial Virus Not Detected (NOT DETECT); SARS-Cov-2 (COVID-19), BioFire Not Detected (NOT DETECT)
[2022-09-04 05:32] LABS: BASOPHILS ABSOLUTE AUTO 0.03 K/mm3 (0.00-0.23); BASOPHILS PERCENT AUTO 1 % (0-2); EOSINOPHILS ABSOLUTE AUTO 0.14 K/mm3 (0.00-0.68); EOSINOPHILS PERCENT AUTO 4 % (0-6); Hematocrit 27.1 % (37.0-53.0); IMMATURE GRAN ABSOLUTE AUTO 0.01 K/mm3 (0.00-0.10); IMMATURE GRAN PERCENT AUTO 0 % (0-1); LYMPHOCYTES ABSOLUTE AUTO 0.76 K/mm3 (0.84-5.20); LYMPHOCYTES PERCENT AUTO 21 % (21-46); MONOCYTES ABSOLUTE AUTO 0.45 K/mm3 (0.16-1.47); MONOCYTES PERCENT AUTO 12 % (4-13); Mean Corpuscular HGB 29.8 pg (26.0-34.0); Mean Corpuscular HGB Conc 33.2 g/dL (31.5-36.5); Mean Corpuscular Volume 90 fL (80-100); Mean Platelet Volume 10.4 fL (9.1-12.4); NEUTROPHILS ABSOLUTE AUTO 2.24 K/mm3 (1.96-9.15); NEUTROPHILS PERCENT AUTO 62 % (41-73); Platelet Count 96 K/mm3 (150-400); RDW Coefficient Variation 16.1 % (11.7-14.2); Red Blood Cell Count 3.02 M/mm3 (4.30-5.90); White Blood Cell Count 3.63 K/mm3 (4.00-11.30)
--- NOTE | 2022-09-04 05:42 | NUR ---
NIGHTSHIFT SUMMARY Patient AOx4, awake all night, requesting PRN Dilaudid for pain/VILLAFANA t/o night. Patient walked to BS, SOB with activity, used cane to ambulate. Strep A & Respiratory PCR collected, labs resulted. Early this shift patient presented with oral temp 103.2, VEWS score 5, notified MD, gave an extra dose of tylenol and provided ice packs. Temp now 98.7, VSS. IV ABX administred. ABD distended, pain denied pain, only c/o headache. Tolerating PO intake, adequte urine output. Will continue to monitor.
[2022-09-04 05:54] LABS: Albumin, Blood 2.5 g/dL (3.4-5.0); Albumin/Globulin Ratio 0.5 (0.8-1.8); Bilirubin, Total 1.8 mg/dL (0.1-1.0); Bun/Creatinine Ratio 11.5 (12.0-20.0); Creatinine, Blood 0.61 mg/dL (0.60-1.20); Globulin, Blood 4.6 g/dL (2.2-4.0); Potassium, Blood 3.4 mmol/L (3.5-5.5); Total Protein, Blood 7.1 g/dL (6.4-8.2)
[2022-09-04 09:09] LABS: HBSAG SCREEN Negative (Negative); HCV AB <0.1 (0.0-0.9); HEP B CORE AB, TOT Negative (Negative)
--- NOTE | 2022-09-04 12:40 | NUR ---
PATIENT HAS CONTINUED TO WRAP HIMSELF UP IN BLANKETS AND TURN THE TEMPERATURE IN THE ROOM UP, PATIENT VERY RELUCTANT AND RESISTANT TO BREATHING, MEDICATION, DILAUDID, AND ANXIETY EDUCATION FROM THE NURSE AND DR BOND AND OTHER RESIDENTS. PALLIATIVE CARE CONSULT IN AND PALLIATIVE CARE RN NOTIFIED. POSSIBLE LUMBAR PUNCTURE TO BE DONE BUT DR BOND IS WAITING TO SEE ANESTHESIALOGIST AVAILABLITY. CALL LIGHT WITH IN REACH, WCTM
[2022-09-04 14:43] LABS: Vancomycin, Trough 12.9 ug/mL (5.0-10.0)
--- NOTE | 2022-09-04 15:03 | NUR ---
DR BOND AND ANESTHESIOLOGY AT BEDSIDE FOR LUMBAR PUNCTURE, PATIENT EDUCATED AND GIVEN WRITTEN MATERIALS ON LUMBAR PUNCTURE, MEDICATED WITH BENADRYL
[2022-09-04 16:29] LABS: Automated CSF WBC Count 0.001 K/mm3 (0-5)
[2022-09-04 16:32] LABS: WBC Count, CSF 1 /mm3 (0-5)
[2022-09-04 16:43] LABS: Appearance, CSF Clear (Clear); Color, CSF No Color (No Color); RBC Count, CSF 1 /mm3 (0-0)
[2022-09-04 16:47] LABS: Glucose, CSF 62 mg/dL (40-70)
[2022-09-04] MEDS ORDERED: Pentoxifylline400 MG PO (18:56)
--- NOTE | 2022-09-05 06:48 | NUR ---
SHIFT SUMMARY PT C/O OF SEVERE STABBING HEAD PAIN T/O MOST THE NIGHT, REQUESTING Q4 DILAUDED WHEN AVAILABLE. PT HAD 103.4 F TEMPURATURE AT 0100, GAVE PRN TYLENOL 500 MG AND APPLIED ICE PACKS. BY 0246 HIS TEMPURATURE WAS DOWN TO 100.2. PT RCVD IV ABX, WOULD NOT LET ME USE IV IN LFA DUE TO TENDERNESS, RFA IV WOULD FREQUENTLY BEEP WITH DISTAL OCCLUSION ERROR. C/O INSOMNIA FOR 14 DAYS, AFTER ABX INFUSION HE WAS ABLE TO SLEEP COMFORTABLY. NO ACUTE EVENTS, PT COOPERATIVE WITH CARE.
[2022-09-05 07:54] LABS: BASOPHILS ABSOLUTE AUTO 0.02 K/mm3 (0.00-0.23); BASOPHILS PERCENT AUTO 1 % (0-2); EOSINOPHILS ABSOLUTE AUTO 0.22 K/mm3 (0.00-0.68); EOSINOPHILS PERCENT AUTO 8 % (0-6); Hematocrit 23.4 % (37.0-53.0); IMMATURE GRAN ABSOLUTE AUTO 0.01 K/mm3 (0.00-0.10); IMMATURE GRAN PERCENT AUTO 0 % (0-1); LYMPHOCYTES ABSOLUTE AUTO 0.88 K/mm3 (0.84-5.20); LYMPHOCYTES PERCENT AUTO 30 % (21-46); MONOCYTES ABSOLUTE AUTO 0.59 K/mm3 (0.16-1.47); MONOCYTES PERCENT AUTO 20 % (4-13); Mean Corpuscular HGB Conc 34.2 g/dL (31.5-36.5); Mean Corpuscular Volume 88 fL (80-100); Mean Platelet Volume 10.1 fL (9.1-12.4); NEUTROPHILS ABSOLUTE AUTO 1.22 K/mm3 (1.96-9.15); NEUTROPHILS PERCENT AUTO 42 % (41-73); RDW Coefficient Variation 16.2 % (11.7-14.2); RDW Standard Deviation 51.8 fL (35.1-46.3); Red Blood Cell Count 2.67 M/mm3 (4.30-5.90); White Blood Cell Count 2.94 K/mm3 (4.00-11.30)
[2022-09-05 07:57] LABS: Platelet Count 86 K/mm3 (150-400)
--- NOTE | 2022-09-05 08:00 | NUR ---
Pt laying in bed with many needs, states his head hurts, sometimes talks in circles, a/ox3, cooperative with care, but is complaining of his iv hurting, states the one on the left hurts like fire, and doesn't want it used, lungs clear t/o, on r/a, resp even and unlabored, no cough noted, hrr, no edema noted, iv x2, to lfa and rac, rac infusing, btx4, voids via urinal without diff, skin c/w/d, alesia perez, call light in reach.
[2022-09-05 08:11] LABS: Albumin, Blood 2.3 g/dL (3.4-5.0); Albumin/Globulin Ratio 0.6 (0.8-1.8); Bilirubin, Total 1.5 mg/dL (0.1-1.0); Bun/Creatinine Ratio 16.8 (12.0-20.0); Calcium, Blood 8.1 mg/dL (8.5-10.1); Creatinine, Blood 0.65 mg/dL (0.60-1.20); Globulin, Blood 3.9 g/dL (2.2-4.0); Potassium, Blood 3.9 mmol/L (3.5-5.5); Total Protein, Blood 6.2 g/dL (6.4-8.2)
--- NOTE | 2022-09-05 10:34 | NUR ---
medicated with dilaudid for h/a pain, he refused to try ice pack, is tearful and states he only has two yrs to live, due to the cirrhosis, call light in reach.
[2022-09-05 11:55] LABS: Cryptococcus Neoformans/Gattii Not Detected (NOT DETECT); Enterovirus Not Detected (NOT DETECT); Escherichia Coli K1 Not Detected (NOT DETECT); Haemophilus Influenza Not Detected (NOT DETECT); Herpes Simplex Virus 1 Not Detected (NOT DETECT); Herpes Simplex Virus 2 Not Detected (NOT DETECT); Human Herpesvirus 6 Not Detected (NOT DETECT); Human Parechovirus Not Detected (NOT DETECT); Listeria Monocytogenes Not Detected (NOT DETECT); Neisseria Meningitidis Not Detected (NOT DETECT); Streptococcus Agalactiae Not Detected (NOT DETECT); Streptococcus Pneumoniae Not Detected (NOT DETECT); Varicella Zoster Virus Not Detected (NOT DETECT)
--- NOTE | 2022-09-05 16:04 | NUR ---
pt had an note on his door that asked to not disturb him until 7, it was on his door when this nurse came on this am, he is very concerned about it and asking who put it there, and will save it for the Dr. I tried to explain its not an issue but to him it is. he seems a bit paranoid, and states he isn't feeling any better, "Im getting worse". resp are increased. offered assurance that everything is ok, will notify Dr. Ariza. call light in reach.
--- NOTE | 2022-09-05 16:30 | NUR ---
Pt has been acting increasingly paranoid, dilusions and confusion. Walked out to nurse area to ask why we wrote a note and put it on his door."Please dont disturb patient before 7 am." In his own handwriting. Thinks were all talking about him, can hear all the people dying all around him, said his call light turns on off by itself. I explained that he pushes the call light and we respond. It will not turn off unless we go in to assist him. He didnt seem to comprehend and then just skipped to the next illogical statemnt. [facility] but apologetic asking various people questions about the happenings here. Believes that the nurses are hiding things and has questions nobody will amswer. Ying Yanez 09-05-22 4:30 PM
--- NOTE | 2022-09-05 18:28 | NUR ---
pt calmed down and is appologetic for his behavior, states he was just confused, offered encouragement, no further changes this shift. call light in reach.
--- NOTE | 2022-09-06 03:51 | NUR ---
NIGHTSHIFT SUMMARY Patient AOx3, requested PRN Tramadol this evening, verbalized frusteration that he does not have a stronger pain med ordered, stated "the tylenol is killing me" "My pain is unbearable, I feel like I won't make it through the night, I guess they are saving all the pills for the drug seekers across the street". Patient reports VILLAFANA, diffuse pain t/o ABD that is constant. RN asked to assess patient, patient responded yes, then pulled his hands from under the blankets. Patient told nurse "I was holding my scrotum to keep warm". Then c/o that he has had a fever for 3 weeks. Patient appears to be comfortable in bed, wearing a hat/clothes, 3 blankets, heat is turned up. Oral temp afebrile, turned down heat & offered ice packs. Patient continued to call t/o evening requesting PRN for pain/sleep. Patient called to speak to RN, and said "I guess this is my fault, I caused my cirrhosis, I should just live with the consequences". MD ordered Hydroxyzine PRN. PRNs given for sleep, patient slept comfortably 4-5 hours this shift. Vitals stable. Will continue to monitor.
[2022-09-06 05:30] LABS: Hematocrit 22.2 % (37.0-53.0); Hemoglobin 7.5 g/dL (13.5-17.5)
[2022-09-06 06:03] LABS: Bun/Creatinine Ratio 16.7 (12.0-20.0); Calcium, Blood 8.9 mg/dL (8.5-10.1); Creatinine, Blood 0.66 mg/dL (0.60-1.20)
[2022-09-06] MEDS ORDERED: NICO21TP TOP (11:03)
[2022-09-06] MEDS ORDERED: HYDHCL25 PO (11:04)
--- NOTE | 2022-09-06 13:36 | NUR ---
DISCHARGE SUMMARY PATIENT IS ALERT AND ORIENTED. PATIENT HAS HAD NO ACUTE EVENTS THIS SHIFT. VITAL SIGNS REVIEWED. PATIENT HAS COMPLAINED OF PAIN THIS SHIFT, MEDICATED PER EMAR. PATIENT HAS NOT COMPLAINED OF NAUSEA, SOB OR VOMITTING THIS SHIFT. PATIENT IS BEING DISCHARGED HOME. PATIENTS GIRLFRIEND PICKED UP PATIENT.
== END 2022-09-06 14:00 | disposition home or self-care (01) | DRG 866 ==
LOC: ER 13:55 → MEDS 22:34
PROVIDERS: Family Medicine Adult Medicine; Hospitalist; Physician Assistant; Student in an Organized Health Care Education/Training Program; ADMIT Internal Medicine
PROC: 009U3ZX Drainage of Spinal Canal, Percutaneous Approach, Diagnostic (ICD-10-PCS; principal; 2022-09-04)
PROC: 3E03329 Introduction of Other Anti-infective into Peripheral Vein, Percutaneous Approach (ICD-10-PCS; 2022-09-04)
DX: B34.9 Viral infection, unspecified (principal); K76.6 Portal hypertension; F41.9 Anxiety disorder, unspecified; K70.30 Alcoholic cirrhosis of liver without ascites; D63.1 Anemia in chronic kidney disease; Z20.822 Contact with and (suspected) exposure to COVID-19; Z51.5 Encounter for palliative care; N18.9 Chronic kidney disease, unspecified; F10.10 Alcohol abuse, uncomplicated; F17.210 Nicotine dependence, cigarettes, uncomplicated; F12.21 Cannabis dependence, in remission; E87.6 Hypokalemia; K72.90 Hepatic failure, unspecified without coma; D69.59 Other secondary thrombocytopenia; K44.9 Diaphragmatic hernia without obstruction or gangrene; N20.0 Calculus of kidney; Z68.28 Body mass index [BMI] 28.0-28.9, adult; Z87.19 Personal history of other diseases of the digestive system; Z98.890 Other specified postprocedural states
CPT/HCPCS: 0202U; 0241U; 36415; 71045; 74176; 76705; 80048; 80053; 80202; 81003; 82140; 82247; 82248; 82945; 83605; 83690; 84157; 85014; 85018; 85025; 85610; 86704; 86708; 86803; 87040; 87070; 87081; 87205; 87252; 87254; 87340; 87430; 87483; 89051; 93005; 93010; 96365; 96367; 96375; 96376; 99285-25; A9270; G0378; G0480; J0696; J1170; J1650; J1815; J1885; J2185; J2354; J2543; J3010; J3370; J3480; J7030; J7050

== ENCOUNTER 2022-09-21 08:37 | Emergency (ER) | payer OTHER ==
[~2022-09-21] VITALS: Ht 182.9 cm; Wt 95.2 kg
[~2022-09-21 08:37] MED LIST changes: +HYDHCL25 PO; +NICO21TP TOP; +PANTOPRAZOLE SO40 M2 PO; +Pentoxifylline400 MG PO
[2022-09-21 10:16] LABS: BASOPHILS ABSOLUTE AUTO 0.12 K/mm3 (0.00-0.23); BASOPHILS PERCENT AUTO 3 % (0-2); EOSINOPHILS ABSOLUTE AUTO 0.29 K/mm3 (0.00-0.68); EOSINOPHILS PERCENT AUTO 6 % (0-6); Hematocrit 29.5 % (37.0-53.0); Hemoglobin 9.7 g/dL (13.5-17.5); IMMATURE GRAN ABSOLUTE AUTO 0.01 K/mm3 (0.00-0.10); IMMATURE GRAN PERCENT AUTO 0 % (0-1); LYMPHOCYTES ABSOLUTE AUTO 1.19 K/mm3 (0.84-5.20); LYMPHOCYTES PERCENT AUTO 25 % (21-46); MONOCYTES ABSOLUTE AUTO 0.48 K/mm3 (0.16-1.47); MONOCYTES PERCENT AUTO 10 % (4-13); Mean Corpuscular HGB 29.2 pg (26.0-34.0); Mean Corpuscular HGB Conc 32.9 g/dL (31.5-36.5); Mean Corpuscular Volume 89 fL (80-100); Mean Platelet Volume 10.5 fL (9.1-12.4); NEUTROPHILS ABSOLUTE AUTO 2.71 K/mm3 (1.96-9.15); NEUTROPHILS PERCENT AUTO 57 % (41-73); Platelet Count 135 K/mm3 (150-400); RDW Coefficient Variation 15.9 % (11.7-14.2); RDW Standard Deviation 51.3 fL (35.1-46.3); Red Blood Cell Count 3.32 M/mm3 (4.30-5.90)
[2022-09-21 10:31] LABS: Albumin/Globulin Ratio 0.7 (0.8-1.8); Bilirubin, Direct 0.9 mg/dL (0.0-0.3); Bilirubin, Total 1.9 mg/dL (0.1-1.0); Bun/Creatinine Ratio 17.5 (12.0-20.0); Calcium, Blood 8.7 mg/dL (8.5-10.1); Creatinine, Blood 0.51 mg/dL (0.60-1.20); Globulin, Blood 4.5 g/dL (2.2-4.0); Magnesium, Blood 1.8 mg/dL (1.6-2.4); Potassium, Blood 3.8 mmol/L (3.5-5.5); Total Protein, Blood 7.5 g/dL (6.4-8.2)
--- NOTE | 2022-09-21 11:36 | NUR ---
ED Palliative Care Consult Spoke with Dr Degroot and discussed case. Pt to the ED for generalized pain. No findings to suggest Pt meets admission criteria. Pt resting on gurney upon arrival. Pt reports pain all over. Listened as Pt reports being sober for 2 months and is hoping to get on the liver transplant list. Suggested distraction techniques with Pt reporting implenting several of them. Continued supportive listening and suggested couseling to assist with develping coping skills. Continued listening and validated concerns. Palliative Care will remain available.
== END 2022-09-21 12:25 | disposition home or self-care (01) ==
LOC: ER 08:37
PROVIDERS: Student in an Organized Health Care Education/Training Program
DX: R07.9 Chest pain, unspecified (principal); N18.9 Chronic kidney disease, unspecified; F17.210 Nicotine dependence, cigarettes, uncomplicated; K70.30 Alcoholic cirrhosis of liver without ascites; R60.0 Localized edema; D64.9 Anemia, unspecified; M25.50 Pain in unspecified joint; M79.10 Myalgia, unspecified site; Z79.899 Other long term (current) drug therapy
CPT/HCPCS: 71046; 80048; 80076; 83690; 83735; 83880; 84484; 85025; 93005; 93010; A9270; J1940

== ENCOUNTER → 2022-10-08 | Outpatient (CLI) | payer OTHER ==
[~2022-10-08] MED LIST changes: +Ondansetron Odt8 MG MM
[2022-10-08 14:53] LABS: BASOPHILS ABSOLUTE AUTO 0.11 K/mm3 (0.00-0.23); BASOPHILS PERCENT AUTO 2 % (0-2); EOSINOPHILS ABSOLUTE AUTO 0.45 K/mm3 (0.00-0.68); EOSINOPHILS PERCENT AUTO 7 % (0-6); Hemoglobin 10.1 g/dL (13.5-17.5); IMMATURE GRAN ABSOLUTE AUTO 0.02 K/mm3 (0.00-0.10); IMMATURE GRAN PERCENT AUTO 0 % (0-1); LYMPHOCYTES ABSOLUTE AUTO 1.15 K/mm3 (0.84-5.20); LYMPHOCYTES PERCENT AUTO 19 % (21-46); MONOCYTES ABSOLUTE AUTO 0.55 K/mm3 (0.16-1.47); MONOCYTES PERCENT AUTO 9 % (4-13); Mean Corpuscular HGB 29.9 pg (26.0-34.0); Mean Corpuscular HGB Conc 33.7 g/dL (31.5-36.5); Mean Corpuscular Volume 89 fL (80-100); Mean Platelet Volume 10.6 fL (9.1-12.4); NEUTROPHILS ABSOLUTE AUTO 3.92 K/mm3 (1.96-9.15); NEUTROPHILS PERCENT AUTO 63 % (41-73); Platelet Count 136 K/mm3 (150-400); RDW Coefficient Variation 15.6 % (11.7-14.2); RDW Standard Deviation 50.7 fL (35.1-46.3); Red Blood Cell Count 3.38 M/mm3 (4.30-5.90)
[2022-10-08 15:02] LABS: Albumin, Blood 3.2 g/dL (3.4-5.0); Albumin/Globulin Ratio 0.7 (0.8-1.8); Bilirubin, Total 1.5 mg/dL (0.1-1.0); Bun/Creatinine Ratio 15.9 (12.0-20.0); Calcium, Blood 8.3 mg/dL (8.5-10.1); Creatinine, Blood 0.63 mg/dL (0.60-1.20); Globulin, Blood 4.7 g/dL (2.2-4.0); Potassium, Blood 3.8 mmol/L (3.5-5.5); Total Protein, Blood 7.9 g/dL (6.4-8.2)
== END | disposition home or self-care (01) ==
LOC: LAB SHORT 14:47 → LAB 14:47
PROVIDERS: Physician Assistant
DX: R10.9 Unspecified abdominal pain (principal)
CPT/HCPCS: 80053; 85025

== ENCOUNTER 2022-10-11 16:32 | Emergency (ER) | payer OTHER ==
[~2022-10-11] VITALS: Ht 182.9 cm; Wt 94.3 kg
[~2022-10-11 16:32] MED LIST changes: -Ondansetron Odt8 MG MM
[2022-10-11 17:03] LABS: BASOPHILS ABSOLUTE AUTO 0.08 K/mm3 (0.00-0.23); BASOPHILS PERCENT AUTO 1 % (0-2); EOSINOPHILS ABSOLUTE AUTO 0.31 K/mm3 (0.00-0.68); EOSINOPHILS PERCENT AUTO 6 % (0-6); Hematocrit 30.6 % (37.0-53.0); Hemoglobin 10.3 g/dL (13.5-17.5); IMMATURE GRAN ABSOLUTE AUTO 0.01 K/mm3 (0.00-0.10); IMMATURE GRAN PERCENT AUTO 0 % (0-1); LYMPHOCYTES ABSOLUTE AUTO 1.18 K/mm3 (0.84-5.20); LYMPHOCYTES PERCENT AUTO 21 % (21-46); MONOCYTES ABSOLUTE AUTO 0.48 K/mm3 (0.16-1.47); MONOCYTES PERCENT AUTO 9 % (4-13); Mean Corpuscular HGB 30.1 pg (26.0-34.0); Mean Corpuscular HGB Conc 33.7 g/dL (31.5-36.5); Mean Corpuscular Volume 90 fL (80-100); Mean Platelet Volume 10.4 fL (9.1-12.4); NEUTROPHILS ABSOLUTE AUTO 3.57 K/mm3 (1.96-9.15); NEUTROPHILS PERCENT AUTO 63 % (41-73); Platelet Count 130 K/mm3 (150-400); RDW Coefficient Variation 15.6 % (11.7-14.2); RDW Standard Deviation 50.5 fL (35.1-46.3); Red Blood Cell Count 3.42 M/mm3 (4.30-5.90); White Blood Cell Count 5.63 K/mm3 (4.00-11.30)
[2022-10-11 17:29] LABS: Albumin, Blood 3.2 g/dL (3.4-5.0); Albumin/Globulin Ratio 0.7 (0.8-1.8); Bilirubin, Total 1.4 mg/dL (0.1-1.0); Bun/Creatinine Ratio 23.8 (12.0-20.0); Calcium, Blood 8.4 mg/dL (8.5-10.1); Creatinine, Blood 0.46 mg/dL (0.60-1.20); Globulin, Blood 4.6 g/dL (2.2-4.0); Potassium, Blood 3.7 mmol/L (3.5-5.5); Total Protein, Blood 7.8 g/dL (6.4-8.2)
[2022-10-11] MEDS ORDERED: OXYC5 PO (17:58)
[2022-10-11] MEDS ORDERED: ONE DAILY ESS400 MCG PO (17:59)
[2022-10-11] MEDS ORDERED: PROP10 PO (17:59)
[2022-10-11] MEDS ORDERED: Ondansetron Odt8 MG MM (18:00)
--- NOTE | 2022-10-12 13:45 | NUR ---
Pt is a 31 year old male with history of chronic anemia, alcoholic cirrhosis, stage 4 varices, chronic chest/abdoment pain. His visits to the ER are accelerating in frequency: 2 ER visits in 2020 2 ER visits in 2020 10 ER visits since March of 2022 The pt was evaluated by [facility] approx 2 months ago, and was an appropriate candidate, however he did not want to give up visits to the ER at that time, so was not admitted. He continues to utilize the ER for c/o rectal bleeding, hemoptysis or hematemasis. He was anemic at most recent visit on 10/11/22, but not indicating blood transfusion. I called to follow up with pt and his s/o Minerva today. While on speakerphone, they spoke to me together telling me the pt still contemplates hospice, but isn't quite ready. We discussed pursuing a healthier lifestyle including abstinence from alcohol, and pt states he is working on quitting permanently, wasn't interested in discussing rehabilitation at this time. Pt would benefit from outpatient Palliative care, but unfortunatly lives outside the [facility] program service area. Will continue to offer supportive conversations with pt's s/o as needed.
== END 2022-10-11 23:02 | disposition home or self-care (01) ==
LOC: ER 16:32
PROVIDERS: Physician Assistant
DX: R10.9 Unspecified abdominal pain (principal); D64.9 Anemia, unspecified; K70.30 Alcoholic cirrhosis of liver without ascites; R07.9 Chest pain, unspecified; N18.9 Chronic kidney disease, unspecified; F84.0 Autistic disorder; F17.210 Nicotine dependence, cigarettes, uncomplicated; Z79.899 Other long term (current) drug therapy
CPT/HCPCS: 36415; 80053; 85025; J1170; J2405

== ENCOUNTER 2022-10-22 09:06 | Day surgery (SDC) | payer OTHER ==
[~2022-10-22] VITALS: Ht 182.9 cm; Wt 91.8 kg
[~2022-10-22 09:06] MED LIST changes: +Ondansetron Odt8 MG MM
== END 2022-10-22 11:16 | disposition home or self-care (01) ==
LOC: ORSCSDS 09:06
PROVIDERS: Internal Medicine Gastroenterology
PROC: 0DJD8ZZ Inspection of Lower Intestinal Tract, Via Natural or Artificial Opening Endoscopic (ICD-10-PCS; principal; 2022-10-22 10:30)
DX: K62.5 Hemorrhage of anus and rectum (principal); R10.11 Right upper quadrant pain; K74.60 Unspecified cirrhosis of liver; F84.0 Autistic disorder; R10.9 Unspecified abdominal pain; R19.7 Diarrhea, unspecified; F17.210 Nicotine dependence, cigarettes, uncomplicated; Z79.899 Other long term (current) drug therapy
CPT/HCPCS: J2250; J2704; J7120

== ENCOUNTER → 2022-10-29 | Outpatient (CLI) | payer OTHER ==
[2022-10-29 19:23] LABS: Percent Saturation 9.1 % (20.0-50.0)
== END | disposition home or self-care (01) ==
LOC: LAB 14:41 → LAB SHORT 14:41
PROVIDERS: Internal Medicine Hematology & Oncology
DX: D50.9 Iron deficiency anemia, unspecified (principal); E53.8 Deficiency of other specified B group vitamins
CPT/HCPCS: 82607; 82728; 82746; 83540; 83550

== ENCOUNTER → 2022-10-29 | Outpatient (CLI) | payer OTHER ==
[2022-10-29 19:08] LABS: BASOPHILS ABSOLUTE AUTO 0.05 K/mm3 (0.00-0.23); BASOPHILS PERCENT AUTO 1 % (0-2); EOSINOPHILS PERCENT AUTO 5 % (0-6); Hematocrit 27.8 % (37.0-53.0); Hemoglobin 9.4 g/dL (13.5-17.5); IMMATURE GRAN ABSOLUTE AUTO 0.01 K/mm3 (0.00-0.10); IMMATURE GRAN PERCENT AUTO 0 % (0-1); LYMPHOCYTES ABSOLUTE AUTO 0.81 K/mm3 (0.84-5.20); LYMPHOCYTES PERCENT AUTO 20 % (21-46); MONOCYTES ABSOLUTE AUTO 0.42 K/mm3 (0.16-1.47); MONOCYTES PERCENT AUTO 10 % (4-13); Mean Corpuscular HGB 29.7 pg (26.0-34.0); Mean Corpuscular HGB Conc 33.8 g/dL (31.5-36.5); Mean Corpuscular Volume 88 fL (80-100); Mean Platelet Volume 10.9 fL (9.1-12.4); NEUTROPHILS ABSOLUTE AUTO 2.67 K/mm3 (1.96-9.15); NEUTROPHILS PERCENT AUTO 64 % (41-73); Platelet Count 100 K/mm3 (150-400); RDW Coefficient Variation 15.4 % (11.7-14.2); RDW Standard Deviation 49.9 fL (35.1-46.3); Red Blood Cell Count 3.17 M/mm3 (4.30-5.90); White Blood Cell Count 4.16 K/mm3 (4.00-11.30)
== END | disposition home or self-care (01) ==
LOC: LAB 14:41 → LAB SHORT 14:41
PROVIDERS: Internal Medicine Hematology & Oncology
DX: D50.9 Iron deficiency anemia, unspecified (principal)
CPT/HCPCS: 85025

== ENCOUNTER 2022-11-22 21:01 | Inpatient (IN) | payer OTHER ==
[~2022-11-22] VITALS: Ht 182.9 cm; Wt 91.7 kg
[~2022-11-22 21:01] MED LIST changes: +PROPRANOLOL PO
[2022-11-22] MEDS ORDERED: SILENOR6 MG (21:25)
[2022-11-22] MEDS ORDERED: MULTIPLE VITAM1 EACH PO (21:25)
[2022-11-22] MEDS ORDERED: MIRALAX17 GM PO (21:25)
[2022-11-22] MEDS ORDERED: Fleet Enema132 ML PR (21:26)
[2022-11-22 22:47] LABS: BASOPHILS ABSOLUTE AUTO 0.08 K/mm3 (0.00-0.23); BASOPHILS PERCENT AUTO 2 % (0-2); EOSINOPHILS ABSOLUTE AUTO 0.28 K/mm3 (0.00-0.68); EOSINOPHILS PERCENT AUTO 7 % (0-6); Hematocrit 32.8 % (37.0-53.0); Hemoglobin 11.2 g/dL (13.5-17.5); IMMATURE GRAN ABSOLUTE AUTO 0.01 K/mm3 (0.00-0.10); IMMATURE GRAN PERCENT AUTO 0 % (0-1); LYMPHOCYTES PERCENT AUTO 28 % (21-46); MONOCYTES ABSOLUTE AUTO 0.42 K/mm3 (0.16-1.47); MONOCYTES PERCENT AUTO 11 % (4-13); Mean Corpuscular HGB 29.5 pg (26.0-34.0); Mean Corpuscular HGB Conc 34.1 g/dL (31.5-36.5); Mean Corpuscular Volume 86 fL (80-100); Mean Platelet Volume 10.3 fL (9.1-12.4); NEUTROPHILS ABSOLUTE AUTO 2.01 K/mm3 (1.96-9.15); NEUTROPHILS PERCENT AUTO 51 % (41-73); Platelet Count 114 K/mm3 (150-400); RDW Coefficient Variation 15.3 % (11.7-14.2); RDW Standard Deviation 48.7 fL (35.1-46.3)
[2022-11-22 23:03] LABS: Albumin, Blood 3.2 g/dL (3.4-5.0); Albumin/Globulin Ratio 0.8 (0.8-1.8); Bilirubin, Total 1.5 mg/dL (0.1-1.0); Bun/Creatinine Ratio 12.9 (12.0-20.0); Calcium, Blood 8.8 mg/dL (8.5-10.1); Creatinine, Blood 0.54 mg/dL (0.60-1.20); Globulin, Blood 4.2 g/dL (2.2-4.0); Potassium, Blood 3.4 mmol/L (3.5-5.5); Total Protein, Blood 7.4 g/dL (6.4-8.2)
[2022-11-22 23:11] LABS: International Normalized Ratio 1.34; Prothrombin Time Results 13.8 Sec (9.7-11.5)
--- NOTE | 2022-11-23 01:36 | NUR ---
ADMISSION REPORT RECIEVED FROM ER NURSE, PATIENT ARRIVES TO PCU 02, ABLE TO STAND AND TRANSFER SELF TO PCU BED. PATIENT ALERT, ORIENTED, ANSWERING QUESTIONS APPROPRIATLEY. PATIENT IS PALE IN COLOR AND HAS A HAND GRIPPING TO HIS CHEST. PATIENT STATES "I CAN FEEL THE PAIN RIGHT WHERE I HAD BANDING DONE IN AUGUST". PATIENT REPORTS THAT IS DOES NOT FEEL LIKE CARDIAC CHEST PAIN. DENIES NAUSEA AT THIS TIME, NO SIGNS OF HEMATEMESIS. PATIENT USING URINAL IN BED INDEPENDENTLY. ORIENTED TO ROOM AND CALL LIGHT SYSTEM, BED ALARM IN PLACE FOR SAFETY. CALL PLACED TO PHARMACIST REGARDING PROTONIX AND OCTREOTIDE GTT. PATIENT ONLY HAS ONE WORKING IV AT THIS TIME, OCTREOTIDE INFUSING PER EMAR. WILL START PROTONIX GTT ONCE SECOND IV ACCESS IS ESTABLISHED.
[2022-11-23 04:35] LABS: BASOPHILS ABSOLUTE AUTO 0.06 K/mm3 (0.00-0.23); BASOPHILS PERCENT AUTO 2 % (0-2); EOSINOPHILS ABSOLUTE AUTO 0.23 K/mm3 (0.00-0.68); EOSINOPHILS PERCENT AUTO 7 % (0-6); Hematocrit 29.9 % (37.0-53.0); Hemoglobin 10.2 g/dL (13.5-17.5); IMMATURE GRAN ABSOLUTE AUTO 0.01 K/mm3 (0.00-0.10); IMMATURE GRAN PERCENT AUTO 0 % (0-1); LYMPHOCYTES PERCENT AUTO 33 % (21-46); MONOCYTES ABSOLUTE AUTO 0.37 K/mm3 (0.16-1.47); MONOCYTES PERCENT AUTO 11 % (4-13); Mean Corpuscular HGB 29.3 pg (26.0-34.0); Mean Corpuscular HGB Conc 34.1 g/dL (31.5-36.5); Mean Corpuscular Volume 86 fL (80-100); Mean Platelet Volume 10.9 fL (9.1-12.4); NEUTROPHILS ABSOLUTE AUTO 1.59 K/mm3 (1.96-9.15); NEUTROPHILS PERCENT AUTO 47 % (41-73); Platelet Count 103 K/mm3 (150-400); RDW Coefficient Variation 15.3 % (11.7-14.2); RDW Standard Deviation 48.4 fL (35.1-46.3); Red Blood Cell Count 3.48 M/mm3 (4.30-5.90); White Blood Cell Count 3.36 K/mm3 (4.00-11.30)
[2022-11-23 04:55] LABS: Albumin/Globulin Ratio 0.8 (0.8-1.8); Bilirubin, Total 1.7 mg/dL (0.1-1.0); Bun/Creatinine Ratio 9.8 (12.0-20.0); Calcium, Blood 8.9 mg/dL (8.5-10.1); Creatinine, Blood 0.61 mg/dL (0.60-1.20)
--- NOTE | 2022-11-23 06:19 | NUR ---
SHIFT SUMMARY PATIENT ALERT AND ORIENTED. VSS, PATIENT REMAINS ON RA WITH O2 SAT >90%. PATIENT ABLE TO REST AFTER PAIN MEDICATION ADMINISTERED. SECOND IV ESTABLISHED, OCTREOTIDE GTT INFUSING WELL POTASSIUM, WILL START PROTONIX GTT WHEN POTASSIUM IS FINISHED INFUSING. CONSULT CALLED IN TO DR. ODONNELL, ORDERS FOR STRICT NPO RECIEVED. PATIENT USING URINAL INDEPENDENTLY, NO OTHER CHANGES SINCE ADMISSION, WILL REPORT TO DAY SHIFT RN.
[2022-11-23 11:03] LABS: Hematocrit 40.6 % (37.0-53.0); Hemoglobin 13.8 g/dL (13.5-17.5)
--- NOTE | 2022-11-23 11:21 | NUR ---
11/23/22 1121 Shoshana Montero MONITOR INTACT WITH CONTINUOUS PULSE OXIMETRY AND INTERMITTENT BP. DIRECTOR OF ONLINE EDUCATION CALLED TO NOTIFY PAUSE OF CENTRAL MONITORING FOR EGD PROCEDURE.
--- NOTE | 2022-11-23 16:59 | NUR ---
DISCHARGE SUMMARY PT AMBULATED TO PERSONAL VEHICLE WHILE ESCORTED BY THIS RN. ALL PERSONAL BELONGINGS AND DISCHARGE INSTRUCTIONS WERE IN THE PT'S POSSESSION AT THE TIME OF DISCHARGE. PT STATED AN UNDERSTANDING OF DISCHARGE INSTRUCTIONS AND FOLLOW-UPS.
== END 2022-11-23 16:46 | disposition home or self-care (01) | DRG 432 ==
LOC: ER 21:01 → PCU 11-23 00:29
PROVIDERS: Physician Assistant; Student in an Organized Health Care Education/Training Program; ADMIT Internal Medicine
PROC: 0DJ08ZZ Inspection of Upper Intestinal Tract, Via Natural or Artificial Opening Endoscopic (ICD-10-PCS; principal; 2022-11-23 11:00)
DX: K70.30 Alcoholic cirrhosis of liver without ascites (principal); I85.11 Secondary esophageal varices with bleeding; K22.11 Ulcer of esophagus with bleeding; K76.6 Portal hypertension; F84.0 Autistic disorder; F10.239 Alcohol dependence with withdrawal, unspecified; K91.840 Postprocedural hemorrhage of a digestive system organ or structure following a digestive system procedure; K31.89 Other diseases of stomach and duodenum; D50.9 Iron deficiency anemia, unspecified; F41.9 Anxiety disorder, unspecified; N18.9 Chronic kidney disease, unspecified; D63.1 Anemia in chronic kidney disease; F17.210 Nicotine dependence, cigarettes, uncomplicated; F12.10 Cannabis abuse, uncomplicated; Z87.19 Personal history of other diseases of the digestive system; Z79.899 Other long term (current) drug therapy; Z79.891 Long term (current) use of opiate analgesic; Z98.890 Other specified postprocedural states
CPT/HCPCS: 36415; 71045; 80053; 82272; 83690; 85014; 85018; 85025; 85610; 86850; 86900; 86901; 96365; 96375; 99285-25; A9270; C9113; J0696; J1170; J2001; J2060; J2354; J2704; J3010; J3480; J7030; J7050; J7120

== ENCOUNTER 2023-10-21 17:33 | Emergency (ER) | payer OTHER ==
[~2023-10-21] VITALS: Ht 177.8 cm; Wt 79.4 kg
[~2023-10-21 17:33] MED LIST changes: +Fleet Enema132 ML PR; +MULTIPLE VITAM1 EACH PO; +SILENOR6 MG; +TRAZ50 PO
[2023-10-21 18:13] LABS: BASOPHILS PERCENT AUTO 1 % (0-2); EOSINOPHILS PERCENT AUTO 6 % (0-6); Hematocrit 38.9 % (37.0-53.0); Hemoglobin 13.5 g/dL (13.5-17.5); IMMATURE GRAN ABSOLUTE AUTO 0.02 K/mm3 (0.00-0.10); IMMATURE GRAN PERCENT AUTO 0 % (0-1); LYMPHOCYTES ABSOLUTE AUTO 1.94 K/mm3 (0.84-5.20); LYMPHOCYTES PERCENT AUTO 22 % (21-46); MONOCYTES PERCENT AUTO 8 % (4-13); Mean Corpuscular HGB 29.4 pg (26.0-34.0); Mean Corpuscular HGB Conc 34.7 g/dL (31.5-36.5); Mean Corpuscular Volume 85 fL (80-100); Mean Platelet Volume 12.1 fL (9.1-12.4); NEUTROPHILS PERCENT AUTO 63 % (41-73); Platelet Count 121 K/mm3 (150-400); RDW Coefficient Variation 14.4 % (11.7-14.2); RDW Standard Deviation 44.3 fL (35.1-46.3); Red Blood Cell Count 4.59 M/mm3 (4.30-5.90); White Blood Cell Count 8.86 K/mm3 (4.00-11.30)
[2023-10-21 18:43] LABS: Albumin/Globulin Ratio 1.1 (0.8-1.8); Bun/Creatinine Ratio 20.7 (12.0-20.0); Calcium, Blood 8.6 mg/dL (8.5-10.1); Creatinine, Blood 0.68 mg/dL (0.60-1.20); Globulin, Blood 3.8 g/dL (2.2-4.0); Potassium, Blood 3.6 mmol/L (3.5-5.5); Total Protein, Blood 7.8 g/dL (6.4-8.2)
[2023-10-21 18:48] LABS: Magnesium, Blood 1.7 mg/dL (1.6-2.4); Phosphorus, Blood 3.2 mg/dL (2.5-4.9)
[2023-10-21 21:12] LABS: Source, Urine Clean Catch
[2023-10-21 21:27] LABS: Blood, Urine Neg (Neg); Glucose Qualitative, Urine Neg (Neg); Ketones, Urine Neg (Neg); Leukocyte Esterase, Urine 1+ (Neg); Nitrite, Urine Neg (Neg); Protein, Urine Neg (Neg); Specific Gravity, Urine 1.015 (1.003-1.022); Urobilinogen, Urine 4+ (Normal)
[2023-10-21 21:33] LABS: Appearance, Urine Clear (Clear); Bilirubin, Urine 1+ (Neg); Color, Urine Yellow (P-Yellow)
[2023-10-21 21:35] LABS: Bacteria Few /hpf; Red Blood Cells, Urine 0-2 /hpf (0-2); Squamous Epithelial Cells Few /hpf (Few); White Blood Cells, Urine 0-2 /hpf (0-5)
[2023-10-21] MEDS ORDERED: DOXY100 PO (22:36)
[2023-10-21 23:41] VITALS: BP 128/89
== END 2023-10-21 23:39 | disposition home or self-care (01) ==
LOC: ER 17:33
PROVIDERS: Physician Assistant; Student in an Organized Health Care Education/Training Program
DX: L02.415 Cutaneous abscess of right lower limb (principal); R41.0 Disorientation, unspecified; R51.9 Headache, unspecified; R07.9 Chest pain, unspecified; R10.9 Unspecified abdominal pain; G89.29 Other chronic pain; Z79.899 Other long term (current) drug therapy; F17.210 Nicotine dependence, cigarettes, uncomplicated
CPT/HCPCS: 10060; 71046; 80053; 81001; 82140; 83690; 83735; 84100; 84484; 85025; 87070; 87075; 87076; 87205; 93005; 93010; 96374; 96375; 99284-25; A9270; J2270; J2405

== ENCOUNTER 2023-12-17 20:12 | Emergency (ER) | payer OTHER ==
[~2023-12-17] VITALS: Ht 180.3 cm; Wt 86.2 kg
[~2023-12-17 20:12] MED LIST changes: +DOXY100 PO
[2023-12-17 21:01] LABS: BASOPHILS ABSOLUTE AUTO 0.14 K/mm3 (0.00-0.23); BASOPHILS PERCENT AUTO 2 % (0-2); EOSINOPHILS ABSOLUTE AUTO 0.64 K/mm3 (0.00-0.68); EOSINOPHILS PERCENT AUTO 9 % (0-6); Hematocrit 41.6 % (37.0-53.0); Hemoglobin 14.3 g/dL (13.5-17.5); IMMATURE GRAN ABSOLUTE AUTO 0.01 K/mm3 (0.00-0.10); IMMATURE GRAN PERCENT AUTO 0 % (0-1); LYMPHOCYTES ABSOLUTE AUTO 2.32 K/mm3 (0.84-5.20); LYMPHOCYTES PERCENT AUTO 32 % (21-46); MONOCYTES ABSOLUTE AUTO 0.53 K/mm3 (0.16-1.47); MONOCYTES PERCENT AUTO 7 % (4-13); Mean Corpuscular HGB 29.1 pg (26.0-34.0); Mean Corpuscular HGB Conc 34.4 g/dL (31.5-36.5); Mean Corpuscular Volume 85 fL (80-100); Mean Platelet Volume 11.9 fL (9.1-12.4); NEUTROPHILS ABSOLUTE AUTO 3.52 K/mm3 (1.96-9.15); NEUTROPHILS PERCENT AUTO 49 % (41-73); Platelet Count 132 K/mm3 (150-400); RDW Coefficient Variation 13.6 % (11.7-14.2); RDW Standard Deviation 42.5 fL (35.1-46.3); Red Blood Cell Count 4.92 M/mm3 (4.30-5.90); White Blood Cell Count 7.16 K/mm3 (4.00-11.30)
[2023-12-17 21:02] LABS: Bilirubin, Total 1.2 mg/dL (0.1-1.0); Bun/Creatinine Ratio 13.4 (12.0-20.0); Calcium, Blood 8.8 mg/dL (8.5-10.1); Creatinine, Blood 0.82 mg/dL (0.60-1.20); Potassium, Blood 3.8 mmol/L (3.5-5.5)
[2023-12-17 22:47] VITALS: BP 104/70
[2023-12-17] MEDS ORDERED: IBU600 MG PO (23:05)
== END 2023-12-17 23:16 | disposition home or self-care (01) ==
LOC: ER 20:12
PROVIDERS: Physician Assistant
DX: R10.11 Right upper quadrant pain (principal); Z79.899 Other long term (current) drug therapy; N18.9 Chronic kidney disease, unspecified; F17.210 Nicotine dependence, cigarettes, uncomplicated
CPT/HCPCS: 80053; 83690; 85025; 96374; 99284-25; J1885

== ENCOUNTER 2024-11-07 08:39 | Observation (INO) | payer OTHER ==
[~2024-11-07] VITALS: Ht 182.9 cm; Wt 104.7 kg
[~2024-11-07 08:39] MED LIST changes: +IBU600 MG PO; +Inderal 20 mg T20 MG PO; +ONDA8 PO; -Ondansetron Odt8 MG MM; -PROPRANOLOL PO
[2024-11-07 09:56] LABS: BASOPHILS ABSOLUTE AUTO 0.08 K/mm3 (0.00-0.23); BASOPHILS PERCENT AUTO 1 % (0-2); EOSINOPHILS ABSOLUTE AUTO 0.35 K/mm3 (0.00-0.68); EOSINOPHILS PERCENT AUTO 6 % (0-6); Hematocrit 39.8 % (37.0-53.0); Hemoglobin 13.7 g/dL (13.5-17.5); IMMATURE GRAN ABSOLUTE AUTO 0.02 K/mm3 (0.00-0.10); IMMATURE GRAN PERCENT AUTO 0 % (0-1); LYMPHOCYTES ABSOLUTE AUTO 1.47 K/mm3 (0.84-5.20); LYMPHOCYTES PERCENT AUTO 26 % (21-46); MONOCYTES ABSOLUTE AUTO 0.45 K/mm3 (0.16-1.47); MONOCYTES PERCENT AUTO 8 % (4-13); Mean Corpuscular HGB 29.2 pg (26.0-34.0); Mean Corpuscular HGB Conc 34.4 g/dL (31.5-36.5); Mean Corpuscular Volume 85 fL (80-100); Mean Platelet Volume 12.1 fL (9.1-12.4); NEUTROPHILS PERCENT AUTO 59 % (41-73); Platelet Count 108 K/mm3 (150-400); RDW Coefficient Variation 13.2 % (11.7-14.2); RDW Standard Deviation 40.5 fL (35.1-46.3); Red Blood Cell Count 4.69 M/mm3 (4.30-5.90); White Blood Cell Count 5.77 K/mm3 (4.00-11.30)
[2024-11-07 10:23] LABS: Bilirubin, Total 0.9 mg/dL (0.1-1.0); Bun/Creatinine Ratio 18.8 (12.0-20.0); Creatinine, Blood 0.85 mg/dL (0.60-1.20); Globulin, Blood 3.9 g/dL (2.2-4.0); Potassium, Blood 4.2 mmol/L (3.5-5.5); Total Protein, Blood 7.9 g/dL (6.4-8.2)
[2024-11-07] MEDS ORDERED: Ondansetron HCl 2 MG / ML 2ML Vial IV ONE (10:40)
[2024-11-07] MEDS ORDERED: Pantoprazole Sodium 40 MG in NS 50 ML IV SCH (10:40)
[2024-11-07] MEDS ORDERED: Pantoprazole Sodium 40 MG Injection IV ONE (10:40)
[2024-11-07] MEDS ORDERED: NS 1,000 ML IV SCH (10:40)
[2024-11-07] MEDS ORDERED: OMEP20ER PO (10:42)
[2024-11-07] MEDS ORDERED: ZOLPIDEM TARTRA10 MG PO (10:42)
[2024-11-07] MEDS ORDERED: FentaNYL Citrate 50 MCG/ML 2 ML Injection IV ONE (11:10)
[2024-11-07] MEDS ORDERED: Nicotine 21 MG PATCH TOP ONE (12:30)
[2024-11-07] MEDS ORDERED: Morphine Sulfate 4 MG/1 ML Injection IV ONE (12:30)
[2024-11-07] MEDS ORDERED: Ondansetron HCl 2 MG / ML 2ML Vial IV PRN (14:20)
[2024-11-07] MEDS ORDERED: FLU VACC TS2024-25(6MOS UP)/PF 45 MCG/0.5 ML SYRINGE IM SCH (14:25)
[2024-11-07] MEDS ORDERED: Lactated Ringer's 1,000 ML IV SCH (15:00)
[2024-11-07] MEDS ORDERED: Octreotide Acetate 50 MCG in NS 50 ML IV STA (15:52)
[2024-11-07] MEDS ORDERED: Octreotide Acetate 500 MCG in NS 250 ML IV SCH (15:55)
[2024-11-07] MEDS ORDERED: CefTRIAXone Sodium 1,000 MG in NS 100 ML IV SCH (18:00)
[2024-11-07 18:46] LABS: Hematocrit 37.5 % (37.0-53.0); Hemoglobin 12.6 g/dL (13.5-17.5)
[2024-11-07 18:56] VITALS: BP 119/89
[2024-11-07 19:07] VITALS: BP 126/81
--- NOTE | 2024-11-07 19:20 | NUR ---
ADMIT SUMMARY: PT ADMITTED TO ROOM 302 VIA [facility] AT 1855. PT IS A/O X 4, PLEASANT AND COOPERATIVE. PT STOOD UP FROM [facility] AND ABLE TO SELF TX TO BED FROM [facility]. HE DID C/O DIZZINESS SO WILL MAKE STANDBY ASSIST. PT ORIENTED TO CALL LIGHT, ROOM. REQUESTED PT TO CALL FOR ASSISTANCE WHEN NEEDING TO GET OOB. PT V/U.
[2024-11-07] MEDS ORDERED: Lactobacil 2-S.Thermo-Bifido 1 1 Cap PO SCH (21:00)
[2024-11-07] MEDS ORDERED: Acetaminophen 325 MG TABLET PO PRN (21:45)
[2024-11-08] MEDS ORDERED: NS 250 ML IV PRN (01:50)
[2024-11-08 02:41] LABS: BASOPHILS ABSOLUTE AUTO 0.04 K/mm3 (0.00-0.23); BASOPHILS PERCENT AUTO 1 % (0-2); EOSINOPHILS ABSOLUTE AUTO 0.21 K/mm3 (0.00-0.68); EOSINOPHILS PERCENT AUTO 6 % (0-6); Hematocrit 35.8 % (37.0-53.0); Hemoglobin 12.4 g/dL (13.5-17.5); IMMATURE GRAN ABSOLUTE AUTO 0.01 K/mm3 (0.00-0.10); IMMATURE GRAN PERCENT AUTO 0 % (0-1); LYMPHOCYTES ABSOLUTE AUTO 1.27 K/mm3 (0.84-5.20); LYMPHOCYTES PERCENT AUTO 37 % (21-46); MONOCYTES ABSOLUTE AUTO 0.26 K/mm3 (0.16-1.47); MONOCYTES PERCENT AUTO 8 % (4-13); Mean Corpuscular HGB 29.6 pg (26.0-34.0); Mean Corpuscular HGB Conc 34.6 g/dL (31.5-36.5); Mean Corpuscular Volume 85 fL (80-100); Mean Platelet Volume 11.7 fL (9.1-12.4); NEUTROPHILS ABSOLUTE AUTO 1.66 K/mm3 (1.96-9.15); NEUTROPHILS PERCENT AUTO 48 % (41-73); Platelet Count 77 K/mm3 (150-400); RDW Coefficient Variation 13.2 % (11.7-14.2); Red Blood Cell Count 4.19 M/mm3 (4.30-5.90); White Blood Cell Count 3.45 K/mm3 (4.00-11.30)
[2024-11-08 03:05] LABS: Albumin, Blood 3.5 g/dL (3.4-5.0); Bilirubin, Total 1.2 mg/dL (0.1-1.0); Bun/Creatinine Ratio 14.6 (12.0-20.0); Calcium, Blood 8.4 mg/dL (8.5-10.1); Creatinine, Blood 0.96 mg/dL (0.60-1.20); Globulin, Blood 3.5 g/dL (2.2-4.0); Potassium, Blood 4.1 mmol/L (3.5-5.5)
[2024-11-08 03:37] VITALS: BP 104/62
[2024-11-08] MEDS ORDERED: CefTRIAXone Sodium 1,000 MG in NS 100 ML IV SCH (06:36)
--- NOTE | 2024-11-08 07:34 | NUR ---
NOTE GOT REPORT FROM NIGHT NURSE. NIGHT NURSE REPORTING HAVING ROCEPHEN AND LR ORDERED WITH ONE IV. ASKED PT IF I COULD INSERT ANOTHER IV TO RUN BOTH AT SAME TIME. PT REFUSED ANTIBIOTIC AND CONFUSED WHY IT WAS PRESCRIBED. ER NOTES SHOW PT WAS ON ANTIBIOTIC OUT PATIENT. PT REPORTS NOT TAKING ANTIBIOTIC IN MONTHS. EDUCATED PT ABOUT ANTIBIOTIC USAGE. PT CONT. REFUSED ANTIBIOTIC, IS WILLING TO WAIT FOR DOCTOR TO ROUND TO GET MORE INFO. PT BED IN LOWEST POSITION, CALL LIGHT IN REACH.
[2024-11-08 07:48] VITALS: BP 137/93
[2024-11-08] MEDS ORDERED: Enoxaparin 40 MG/0.4 ML SYR SC SCH (09:00)
[2024-11-08 10:51] LABS: Hematocrit 38.5 % (37.0-53.0); Hemoglobin 13.2 g/dL (13.5-17.5)
--- NOTE | 2024-11-08 15:07 | NUR ---
PT TOLERATED CLEAR LIQUID DIET THIS MORNING AND AT LUNCH. PT WAS ABLE TO KEEP DOWN CLEAR ENSURE WITH NO N/V OR ABD PAIN. PT GIVEN CHOCOLATE ENSURE AND HE WAS ABLE TO DRINK THE WHOLE BOTTLE AND REPORTED HE DID NOT HAVE N/V OR ABD PAIN. CALLED DR. CRAWFORD TO LET HER KNOW PT TOLERATED FULL LIQUIDS. ALSO LET HER KNOW PT HAD REFUSED ROCEPHIN THIS MORNING.
[2024-11-08 15:50] VITALS: BP 112/79
[2024-11-08] MEDS ORDERED: Propranolol HCL 20 MG TAB PO SCH (16:30)
[2024-11-08] MEDS ORDERED: Pantoprazole Sodium 40 MG Injection IV SCH (16:30)
[2024-11-08] MEDS ORDERED: VISBIOME 112.51 EACH PO (16:57)
[2024-11-08] MEDS ORDERED: SULFAMETHOXAZO1 EAC1 PO (16:58)
[2024-11-08] MEDS ORDERED: PANT40 (16:59)
--- NOTE | 2024-11-08 17:18 | NUR ---
DISCHARGE NOTE PT A&OX4. PT HAD NAUSEA ON ADMISSION. REPORTS NO VOMITTING TODAY. TOLERATED FULL LIQUID DIET. EDUCATED ON DISCHARGE INSTRUCTIONS AND MEDS, PT TOOK PERSONAL BELONGINGS. PT MEDS FAXED TO PREFERED PHARMACY. PT ESCORTED BY FAMILY TO PERSONAL VEHICLE. PT INDEPENDENT IN ROOM TODAY. PT REPORTED HEADACHE BUT DENIED MEDS.
== END 2024-11-08 17:17 | disposition home or self-care (01) ==
LOC: ER 08:39 → ERHOLD 08:40 → MEDS 18:51
PROVIDERS: Physician Assistant; ADMIT Internal Medicine
DX: K92.0 Hematemesis (principal); K74.60 Unspecified cirrhosis of liver; K76.6 Portal hypertension; K31.89 Other diseases of stomach and duodenum; D69.6 Thrombocytopenia, unspecified; N18.9 Chronic kidney disease, unspecified; Z87.891 Personal history of nicotine dependence; Z79.899 Other long term (current) drug therapy
CPT/HCPCS: 36415; 76705; 80053; 83690; 85014; 85018; 85025; 96365; 96366; 96367; 96375; 96376; 99285-25; A9270; G0378; J2270; J2354; J2405; J2470; J3010; J7030; J7050; J7120

== ENCOUNTER 2025-11-21 19:57 | Emergency (ER) | payer OTHER ==
[~2025-11-21] VITALS: Ht 182.9 cm; Wt 129.3 kg
[~2025-11-21 19:57] MED LIST changes: +PANT40; +SULFAMETHOXAZO1 EAC1 PO; +ZOLPIDEM TARTRA10 MG PO
[2025-11-21 20:40] LABS: BASOPHILS ABSOLUTE AUTO 0.04 K/mm3 (0.00-0.23); BASOPHILS PERCENT AUTO 1 % (0-2); EOSINOPHILS ABSOLUTE AUTO 0.12 K/mm3 (0.00-0.68); EOSINOPHILS PERCENT AUTO 3 % (0-6); Hematocrit 39.2 % (37.0-53.0); Hemoglobin 13.5 g/dL (13.5-17.5); IMMATURE GRAN ABSOLUTE AUTO 0.01 K/mm3 (0.00-0.10); IMMATURE GRAN PERCENT AUTO 0 % (0-1); LYMPHOCYTES ABSOLUTE AUTO 1.36 K/mm3 (0.84-5.20); LYMPHOCYTES PERCENT AUTO 34 % (21-46); MONOCYTES ABSOLUTE AUTO 0.20 K/mm3 (0.16-1.47); MONOCYTES PERCENT AUTO 5 % (4-13); Mean Corpuscular HGB Conc 34.4 g/dL (31.5-36.5); Mean Corpuscular Volume 82 fL (80-100); NEUTROPHILS ABSOLUTE AUTO 2.28 K/mm3 (1.96-9.15); NEUTROPHILS PERCENT AUTO 57 % (41-73); NRBC ABSOLUTE 0.00 K/mm3 (0.00-0.02); NRBC Auto 0.0 /100 WBC (0.0-0.2); Platelet Count 127 K/mm3 (150-400); RDW Coefficient Variation 12.9 % (11.7-14.2); RDW Standard Deviation 38.3 fL (35.1-46.3)
[2025-11-21 20:59] LABS: Alanine Aminotransfer (ALT/SGP 22.0 U/L (12-78); Albumin, Blood 3.9 g/dL (3.4-5.0); Albumin/Globulin Ratio 1.0 (0.8-1.8); Anion Gap 8.0 mmol/L (3-11); Aspartate Aminotrans (AST/SGOT 22.0 U/L (12-37); Bilirubin, Total 0.7 mg/dL (0.1-1.0); Blood Urea Nitrogen 10.0 mg/dL (8-24); CO2, Blood 26.0 mmol/L (21-32); Calcium, Blood 7.8 mg/dL (8.5-10.1); Chloride, Blood 103.0 mmol/L (98-108); Creatinine, Blood 0.86 mg/dL (0.60-1.20); Globulin, Blood 3.8 g/dL (2.2-4.0); Glucose, Blood 128.0 mg/dL (70-99); Potassium, Blood 3.4 mmol/L (3.5-5.5); Sodium, Blood 134.0 mmol/L (136-145); Total Protein, Blood 7.7 g/dL (6.4-8.2)
[2025-11-21] MEDS ORDERED: Lidocaine 2% Viscous Soln 15 ML UDC PO ONE (22:10)
[2025-11-21] MEDS ORDERED: ENULOSE10 GM/156 PO (22:13)
[2025-11-21 23:00] VITALS: BP 130/78
== END 2025-11-21 23:14 | disposition home or self-care (01) ==
LOC: ER 19:57
PROVIDERS: Emergency Medicine
DX: R53.83 Other fatigue (principal); Z76.0 Encounter for issue of repeat prescription; Z68.38 Body mass index [BMI] 38.0-38.9, adult; Z87.891 Personal history of nicotine dependence; Z79.899 Other long term (current) drug therapy
CPT/HCPCS: 80053; 83690; 84484; 85025; 93005; 93010; 99284-25; A9270